=== PATIENT | male | born 1940 | race Caucasian/White ===

== ENCOUNTER 2016-12-27 13:14 | Inpatient (IN) ==
[2016-12-27] MEDS ORDERED: 0.9 % Sodium Chloride 1,000 ML IVC ONE (13:27)
--- NOTE | 2016-12-27 13:33 | Emergency Department Note ---
Disposition Clinical Impression: Generalized weakness, Unable to ambulate, Hyperglycemia Disposition: Admitted As Inpatient Condition: Fair Prescriptions: Amoxicillin 500 mg PO TID #30 tablet Referrals: NO,PCP [Non-Partnered Physician] - Forms: ED Satisfaction Letter Time of Disposition: 16:46 Altered Mental Status HPI - General Chief Complaint: ED Altered Mental Status Stated Complaint: fall/ams Time Seen by Provider: 12/27/16 13:27 Source: EMS Mode of arrival: ambulatory Limitations: no limitations Nursing Notes Reviewed: Yes Vital Signs Reviewed: Yes - History of Present Illness HPI Narrative: Patient to the emergency department with a chief complaint of altered mental status. Family called EMS because they are having a hard time getting him out of his chair. Questionable female he fell yesterday. Patient states he just does not feel well. States he has a sore throat and coughing. Cough nonproductive. Patient was hypoxic per EMS in the upper 80s. - Related Data Previous Rx's Medication Instructions Recorded Amoxicillin 500 mg PO TID #30 tablet 12/27/16 Allergies Allergy/AdvReac Type Severity Reaction Status Date / Time tetanus and diphtheria AdvReac Hives Verified 10/05/15 22:32 toxoids [Tetanus&Diphtheria Toxoid] All systems ED: reviewed and negative except as stated. Constitutional: Reports: chills. Denies: fever Cardiovascular: Denies: chest pain Respiratory: Reports: cough, dyspnea. Denies: wheezes Gastrointestinal: Denies: abdominal pain, vomiting, diarrhea Past Medical History - Past Medical History Attestation: Yes The following information was validated with the patient. Source: patient Medical history: Reports: cancer, COPD, coronary artery disease, CVA, diabetes, hyperlipidemia, hypertension, peripheral artery disease Surgical history: Reports: no surgical history Psychiatric history: Reports: no psych history - Social History Smoking Status: Former smoker Smokeless Tobacco Status: No Alcohol use: Reports: none Drug use: Reports: none Physical Exam Patient awake and alert. Oriented only to place and self. Smells of urine. - General Limitations: no limitations General appearance: alert, in no apparent distress - Head Head exam: atraumatic, normocephalic - Eye Eye exam: Present: normal appearance, PERRL, EOMI - ENT ENT exam: normal exam, normal oropharynx - Neck Neck exam: Present: normal inspection - Chest Chest inspection: Present: normal inspection - Respiratory Respiratory exam: Present: normal lung sounds bilaterally - Cardiovascular Cardiovascular exam: Present: normal rhythm, tachycardia - Abdominal Exam Abdominal exam: Present: soft, Non-Tender. Absent: tenderness, distention, guarding, rebound - Neurological Exam Neurological exam: Present: alert - Psychiatric Psychiatric exam: Present: normal affect, normal mood - Skin Skin exam: Present: warm, dry, intact Course Course Narrative: Patient is in no distress other than some mild tachycardia. Awaiting family to assess his baseline mental status. - Reevaluation(s) Reevaluation #1: Patient is unable to ambulate. He cannot take his legs up with one person on each side of him. He is unsafe for discharge home. Patient will be admitted to the hospitalist. Time: 16:01 Vital Signs Temperature 98.8 F 12/27/16 13:15 Pulse Rate 106 12/27/16 13:15 Respiratory Rate 18 12/27/16 13:15 Blood Pressure 147/99 12/27/16 13:15 O2 Sat by Pulse Oximetry 95 12/27/16 13:15 Temperature 98.8 F 12/27/16 13:15 Pulse Rate 102 12/27/16 15:40 Respiratory Rate 18 12/27/16 15:40 Blood Pressure 126/88 12/27/16 15:40 O2 Sat by Pulse Oximetry 97 12/27/16 15:40 Oxygen Delivery Oxygen Delivery Room Air Altered Mental Status - MDM Narrative Medical decision making narrative: Patient is unable to ambulate. He cannot put 1 foot in front of the other with full assistance. He is admitted. - Lab Data Result diagrams: 12/27/16 13:34 12/27/16 13:34 Lab Results 12/27/16 12/27/16 12/27/16 Range/Units 13:18 13:34 13:34 WBC 6.4 (4.3-11.1) K/mcL RBC 5.75 H (4.19-5.50) M/mcL Hgb 16.4 (12.9-16.9) g/dL Hct 49.8 (37.5-50.1) % MCV 86.6 (83.0-100.0) fL MCH 28.5 (28.0-33.3) pg MCHC 32.9 (31.6-35.5) g/dL RDW 13.3 (11.5-14.5) % Plt Count 240 (140-400) K/mcL MPV 10.6 (9.4-12.4) fL Immature Gran % 0.3 (0-4) % Seg Neutrophils % 68.1 % Lymphocytes % 16.6 % Monocytes % 13.8 % Eosinophils % 0.3 % Basophils % 0.9 % Neutrophils # 4.3 (1.6-8.9) K/mcL Lymphocytes # 1.1 (0.6-4.6) K/mcL Monocytes # 0.9 (0.0-1.3) K/mcL Eosinophils # 0.0 (0.0-0.6) K/mcL Basophils # 0.1 (0.0-0.2) K/mcL PT 11.6 (9.4-12.1) Seconds INR 1.1 APTT 30.3 (26.0-36.0) Seconds Sodium (136-145) mEq/L Potassium (3.5-4.5) mEq/L Chloride (98-109) mEq/L Carbon Dioxide (19-29) mEq/L BUN (8-26) mg/dL Creatinine (0.72-1.25) mg/dL Est GFR ( Amer) (> 60) Est GFR (Non-Af Amer) (> 60) BUN/Creatinine Ratio (6-26) Glucose (70-99) mg/dL POC Glucose 272 H (58-89) Calculated Osmolality (280-300) Calcium (8.6-10.8) mg/dL Total Bilirubin (0.2-1.2) mg/dL Direct Bilirubin (0.0-0.5) mg/dL Indirect Bilirubin (0.0-1.2) mg/dL AST (5-34) Units/L ALT (0-55) Units/L Alkaline Phosphatase (38-126) Units/L Creatine Kinase (30-200) Units/L Troponin I (0-0.03) ng/mL Serum Total Protein (6.0-8.3) g/dL Albumin (3.5-5.0) g/dL Globulin (2.4-3.5) g/dL Albumin/Globulin Ratio (1.1-2.2) Urine Color (Yellow) Urine Clarity (Clear) Urine pH (5.0-8.0) pH Units Ur Specific [place] (1.010-1.025) Urine Protein (Neg-Trace) mg/dL Urine Glucose (UA) (Normal) mg/dL Urine Ketones (Negative) mg/dL Urine Blood (Negative) Urine Nitrite (Negative) Urine Bilirubin (Negative) Urine Urobilinogen (Normal) mg/dL Ur Leukocyte Esterase (Negative) Urine Microscopic RBC (0-3) per hpf Urine Microscopic WBC (0-3) per hpf Ur Squamous Epith Cells (None-Few) per lpf Urine Bacteria (None-Few) per hpf Hyaline Casts (None-Few) per lpf Ur Culture Indicated? (NO) Urine Opiates Screen (Sjbmek=770) ng/mL Ur Barbiturates Screen (Ilzabt=011) ng/mL Ur Phencyclidine Scrn (Cutoff=25) ng/mL Ur Amphetamines Screen (Cxlvhx=1865) ng/mL U Benzodiazepines Scrn (Ywgtzo=837) ng/mL Urine Cocaine Screen (Cutoff= 300) ng/mL U Marijuana (THC) Screen (Cutoff = 50) ng/mL Ethyl Alcohol (0-10) mg/dL 12/27/16 12/27/16 12/27/16 Range/Units 13:34 13:34 13:38 WBC (4.3-11.1) K/mcL RBC (4.19-5.50) M/mcL Hgb (12.9-16.9) g/dL Hct (37.5-50.1) % MCV (83.0-100.0) fL MCH (28.0-33.3) pg MCHC (31.6-35.5) g/dL RDW (11.5-14.5) % Plt Count (140-400) K/mcL MPV (9.4-12.4) fL Immature Gran % (0-4) % Seg Neutrophils % % Lymphocytes % % Monocytes % % Eosinophils % % Basophils % % Neutrophils # (1.6-8.9) K/mcL Lymphocytes # (0.6-4.6) K/mcL Monocytes # (0.0-1.3) K/mcL Eosinophils # (0.0-0.6) K/mcL Basophils # (0.0-0.2) K/mcL PT (9.4-12.1) Seconds INR APTT (26.0-36.0) Seconds Sodium 138 (136-145) mEq/L Potassium 4.0 (3.5-4.5) mEq/L Chloride 101 (98-109) mEq/L Carbon Dioxide 24 (19-29) mEq/L BUN 19 (8-26) mg/dL Creatinine 1.06 (0.72-1.25) mg/dL Est GFR ( Amer) > 60 (> 60) Est GFR (Non-Af Amer) > 60 (> 60) BUN/Creatinine Ratio 18 (6-26) Glucose 332 H (70-99) mg/dL POC Glucose (58-89) Calculated Osmolality 301 H (280-300) Calcium 9.9 (8.6-10.8) mg/dL Total Bilirubin 0.6 (0.2-1.2) mg/dL Direct Bilirubin 0.2 (0.0-0.5) mg/dL Indirect Bilirubin 0.4 (0.0-1.2) mg/dL AST 21 (5-34) Units/L ALT 31 (0-55) Units/L Alkaline Phosphatase 82 (38-126) Units/L Creatine Kinase 52 (30-200) Units/L Troponin I 0.01 (0-0.03) ng/mL Serum Total Protein 8.5 H (6.0-8.3) g/dL Albumin 3.9 (3.5-5.0) g/dL Globulin 4.6 H (2.4-3.5) g/dL Albumin/Globulin Ratio 0.8 L (1.1-2.2) Urine Color Yellow (Yellow) Urine Clarity Clear (Clear) Urine pH 5.5 (5.0-8.0) pH Units Ur Specific [place] > 1.030 H (1.010-1.025) Urine Protein 30 H (Neg-Trace) mg/dL Urine Glucose (UA) >=1000 H (Normal) mg/dL Urine Ketones Negative (Negative) mg/dL Urine Blood Negative (Negative) Urine Nitrite Negative (Negative) Urine Bilirubin Negative (Negative) Urine Urobilinogen Normal (Normal) mg/dL Ur Leukocyte Esterase Negative (Negative) Urine Microscopic RBC 0-3 (0-3) per hpf Urine Microscopic WBC 0-3 (0-3) per hpf Ur Squamous Epith Cells Moderate H (None-Few) per lpf Urine Bacteria None Seen (None-Few) per hpf Hyaline Casts None Seen (None-Few) per lpf Ur Culture Indicated? NO (NO) Urine Opiates Screen (Fueftp=671) ng/mL Ur Barbiturates Screen (Mfgotj=776) ng/mL Ur Phencyclidine Scrn (Cutoff=25) ng/mL Ur Amphetamines Screen (Pmljfw=3733) ng/mL U Benzodiazepines Scrn (Trxlby=596) ng/mL Urine Cocaine Screen (Cutoff= 300) ng/mL U Marijuana (THC) Screen (Cutoff = 50) ng/mL Ethyl Alcohol < 10 (0-10) mg/dL 12/27/16 Range/Units 13:38 WBC (4.3-11.1) K/mcL RBC (4.19-5.50) M/mcL Hgb (12.9-16.9) g/dL Hct (37.5-50.1) % MCV (83.0-100.0) fL MCH (28.0-33.3) pg MCHC (31.6-35.5) g/dL RDW (11.5-14.5) % Plt Count (140-400) K/mcL MPV (9.4-12.4) fL Immature Gran % (0-4) % Seg Neutrophils % % Lymphocytes % % Monocytes % % Eosinophils % % Basophils % % Neutrophils # (1.6-8.9) K/mcL Lymphocytes # (0.6-4.6) K/mcL Monocytes # (0.0-1.3) K/mcL Eosinophils # (0.0-0.6) K/mcL Basophils # (0.0-0.2) K/mcL PT (9.4-12.1) Seconds INR APTT (26.0-36.0) Seconds Sodium (136-145) mEq/L Potassium (3.5-4.5) mEq/L Chloride (98-109) mEq/L Carbon Dioxide (19-29) mEq/L BUN (8-26) mg/dL Creatinine (0.72-1.25) mg/dL Est GFR ( Amer) (> 60) Est GFR (Non-Af Amer) (> 60) BUN/Creatinine Ratio (6-26) Glucose (70-99) mg/dL POC Glucose (58-89) Calculated Osmolality (280-300) Calcium (8.6-10.8) mg/dL Total Bilirubin (0.2-1.2) mg/dL Direct Bilirubin (0.0-0.5) mg/dL Indirect Bilirubin (0.0-1.2) mg/dL AST (5-34) Units/L ALT (0-55) Units/L Alkaline Phosphatase (38-126) Units/L Creatine Kinase (30-200) Units/L Troponin I (0-0.03) ng/mL Serum Total Protein (6.0-8.3) g/dL Albumin (3.5-5.0) g/dL Globulin (2.4-3.5) g/dL Albumin/Globulin Ratio (1.1-2.2) Urine Color (Yellow) Urine Clarity (Clear) Urine pH (5.0-8.0) pH Units Ur Specific [place] (1.010-1.025) Urine Protein (Neg-Trace) mg/dL Urine Glucose (UA) (Normal) mg/dL Urine Ketones (Negative) mg/dL Urine Blood (Negative) Urine Nitrite (Negative) Urine Bilirubin (Negative) Urine Urobilinogen (Normal) mg/dL Ur Leukocyte Esterase (Negative) Urine Microscopic RBC (0-3) per hpf Urine Microscopic WBC (0-3) per hpf Ur Squamous Epith Cells (None-Few) per lpf Urine Bacteria (None-Few) per hpf Hyaline Casts (None-Few) per lpf Ur Culture Indicated? (NO) Urine Opiates Screen Negative (Udblnb=493) ng/mL Ur Barbiturates Screen Negative (Gsuxnh=811) ng/mL Ur Phencyclidine Scrn Negative (Cutoff=25) ng/mL Ur Amphetamines Screen Negative (Gsedxm=3392) ng/mL U Benzodiazepines Scrn Negative (Gwflpn=927) ng/mL Urine Cocaine Screen Negative (Cutoff= 300) ng/mL U Marijuana (THC) Screen Negative (Cutoff = 50) ng/mL Ethyl Alcohol (0-10) mg/dL - Radiology Data Radiology results reviewed: Yes I reviewed the patient's radiology results. Chest X-Ray 12/27/16 13:27 IMPRESSION: No acute cardiopulmonary disease D/ / Adolph Hernandez MD / Adolph Hernandez MD Interpreting Provider: Adolph Hernandez MD Head CT 12/27/16 13:28 IMPRESSION: No acute intracranial abnormality. Mild atrophy with mild periventricular and scattered frontal parietal white matter disease, likely due to small-vessel ischemic change. D/ / Adolph Serna MD / Adolph Serna MD Interpreting Provider: Adolph Serna MD - EKG Data EKG results narrative: Sinus tach at 109. Nonspecific ST changes. Normal QRS. Normal axis. Occasional PVC Unchanged from August 2016. EKG shows normal: sinus rhythm Rate: tachycardia TPA Checklist - LKW: 3-4.5 hrs Add. Contraindications Patient/family understanding: The patient/family members have been counseled and understood the risk, benefit , and alternatives of treatment. Critical Care Time Critical Care Time: No
[2016-12-27 13:42] LABS: Basophils # 0.1 K/mcL (0.0-0.2); Basophils % 0.9 %; Eosinophils % 0.3 %; Hematocrit 49.8 % (37.5-50.1); Hemoglobin 16.4 g/dL (12.9-16.9); Immature Granulocytes % 0.3 % (0-4); Lymphocytes # 1.1 K/mcL (0.6-4.6); Lymphocytes % 16.6 %; Mean Corpuscular HGB Conc 32.9 g/dL (31.6-35.5); Mean Corpuscular Hemoglobin 28.5 pg (28.0-33.3); Mean Corpuscular Volume 86.6 fL (83.0-100.0); Mean Platelet Volume 10.6 fL (9.4-12.4); Monocytes # 0.9 K/mcL (0.0-1.3); Monocytes % 13.8 %; Neutrophils # 4.3 K/mcL (1.6-8.9); Platelet Count 240 K/mcL (140-400); Red Blood Count 5.75 M/mcL (4.19-5.50); Red Cell Distribution Width 13.3 % (11.5-14.5); Segmented Neutrophils % 68.1 %
[2016-12-27 13:50] LABS: Bilirubin,Urine Negative (Negative); Blood,Urine Negative (Negative); Clarity,Urine Clear (Clear); Color,Urine Yellow (Yellow); Glucose,Urine (UA) >=1000 mg/dL (Normal); Ketones,Urine Negative (Negative); Leukocyte Esterase,Urine Negative (Negative); Nitrite,Urine Negative (Negative); PH,Urine 5.5 pH Units (5.0-8.0); Protein,Urine 30 mg/dL (Neg-Trace); Specific Gravity,Urine > 1.030 (1.010-1.025); Urobilinogen,Urine Normal (Normal)
[2016-12-27 13:52] LABS: Bacteria,Urine None Seen per hpf (None-Few); Hyaline Casts,Urine None Seen per lpf (None-Few); RBC,Urine 0-3 per hpf (0-3); Squamous Epithelial Cell,Urine Moderate per lpf (None-Few); WBC,Urine 0-3 per hpf (0-3)
[2016-12-27 13:53] LABS: Amphetamine Screen,Urine Negative ng/mL (Cutoff=1000); Barbiturate Screen,Urine Negative ng/mL (Cutoff=200); Benzodiazepines Screen,Urine Negative ng/mL (Cutoff=200); Cannabinoid Screen,Urine Negative ng/mL (Cutoff = 50); Cocaine Screen,Urine Negative ng/mL (Cutoff= 300); Opiate Screen,Urine Negative ng/mL (Cutoff=300); Phencyclidine Screen,Urine Negative ng/mL (Cutoff=25)
[2016-12-27 13:53] LABS: INR 1.1; Prothrombin Time 11.6 Seconds (9.4-12.1)
[2016-12-27 13:55] LABS: Activated Partial Thrombo Time 30.3 Seconds (26.0-36.0)
[2016-12-27 13:56] LABS: Alanine Aminotransferase 31 Units/L (0-55); Albumin 3.9 g/dL (3.5-5.0); Albumin/Globulin Ratio 0.8 (1.1-2.2); Alkaline Phosphatase 82 Units/L (38-126); Aspartate Amino Transferase 21 Units/L (5-34); BUN/Creatinine Ratio 18 (6-26); Bilirubin,Direct 0.2 mg/dL (0.0-0.5); Bilirubin,Indirect 0.4 mg/dL (0.0-1.2); Bilirubin,Total 0.6 mg/dL (0.2-1.2); Blood Urea Nitrogen 19 mg/dL (8-26); Calcium 9.9 mg/dL (8.6-10.8); Carbon Dioxide 24 mEq/L (19-29); Chloride 101 mEq/L (98-109); Creatine Kinase 52 Units/L (30-200); Globulin 4.6 g/dL (2.4-3.5); Glucose 332 mg/dL (70-99); Osmolality,Calculated 301 (280-300); Sodium 138 mEq/L (136-145); Total Protein 8.5 g/dL (6.0-8.3); eGFR For African Americans > 60 (> 60); eGFR For Non-African Americans > 60 (> 60)
[2016-12-27 13:59] LABS: Ethanol < 10 mg/dL (0-10)
[2016-12-27] MEDS ORDERED: Insulin Human Regular 10 UNIT in 0.9 % Sodium Chloride 10 ML IV ONE (16:00)
--- NOTE | 2016-12-27 18:19 | Electrocardiograph Report ---
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
--- NOTE | 2016-12-27 20:28 | Internal Med History&Physical ---
<Deja Sloan - Last Filed: 12/27/16 22:17> Date of Encounter: 12/27/16 Time of Encounter: 20:26 Assessment and Plan (1) Generalized weakness Current visit: Yes Status: Acute consult to PT/OT - patient was unable to ambulate in ED with max assist (2) Cough Current visit: Yes Status: Acute most likely URI, may be COPD exacerbation (3) COPD (chronic obstructive pulmonary disease) Current visit: Yes Status: Acute with hypoxia AM VBG ordered continue home medications Qualifiers: COPD type: unspecified COPD Qualified Code(s): J44.9 - Chronic obstructive pulmonary disease, unspecified (4) Diabetes Current visit: Yes Status: Acute hyperglycemia in ED 10 units Levemir (home med 10 U lantus) low dose sliding scale accuchecks q6h Qualifiers: Diabetes mellitus type: type 2 Diabetes mellitus complication status: with hyperglycemia Diabetes mellitus terminal operations manager insulin use: with terminal operations manager use Qualified Code(s): E11.65 - Type 2 diabetes mellitus with hyperglycemia (5) CAD (coronary artery disease) Current visit: Yes Status: Acute continue home ASA, statin, LUCIANA Qualifiers: Coronary Disease-Associated Artery/Lesion type: chilkat artery [place] vs. transplanted heart: chilkat heart Associated angina: angina presence unspecified Qualified Code(s): I25.10 - Atherosclerotic heart disease of chilkat coronary artery without angina pectoris Internal Medicine - H&P: HPI Chief complaint: cough Admitted From: Emergency Dept Plans for Post Hospital Care: Home History of present illness: Mr. Espinoza is a 76 year old male who states he came to the ER for a cough and sore throat x 1 day. He states that his 4 yr old grandson is sick with croup. On my questioning, he denies falling. No family is present at the time of my questioning. ED notes state EMS was called due to difficulty removing him from his chair and a possible fall yesterday. He was admitted from the ED for inability to ambulate with max assist. Past Med Surg Social Fam HX - Past Medical History Source: old records reviewed Medical history: cancer (prostate), COPD, coronary artery disease, CVA, dementia , diabetes (with neuropathy), GERD, hyperlipidemia, hypertension, peripheral artery disease, other (diverticulosis, hypoxemia) Psychiatric history: depression - Past Surgical History Surgical History: cancer surgery (bracytherapy for prostate cancer), cataract, other (tonsillectomy) - Social History Smoking Status: Former smoker Smokeless Tobacco Status: No Alcohol use: none Drug use: none - Family History Mother Living Status: Internal Medicine - H&P: Meds Albuterol Sulfate [Proair Respiclick] 90 mcg IH Q4HR PRN 12/27/16 [History] Amoxicillin 500 mg PO TID #30 tablet 12/27/16 [Rx] Aspirin [Lo-Dose Aspirin EC] 81 mg PO DAILY 12/27/16 [History] Fluticasone Propionate [Flovent Hfa] 10.6 gm IH TID 12/27/16 [History] Glimepiride [Amaryl] 4 mg PO QAM 12/27/16 [History] Insulin Glargine,Hum.rec.anlog [Lantus Solostar] 10 unit SQ DAILY 12/27/16 [ History] Lisinopril 2.5 mg PO DAILY 12/27/16 [History] Metformin HCl [Fortamet] 500 mg PO DAILY 12/27/16 [History] Sildenafil Citrate [Viagra] 100 mg PO DAILY PRN 12/27/16 [History] Simvastatin [Zocor] 20 mg PO HS 12/27/16 [History] Tiotropium [Spiriva] 18 mcg IH DAILY 12/27/16 [History] Allergies tetanus and diphtheria toxoids [Tetanus&Diphtheria Toxoid] Adverse Reaction ( Verified 10/05/15 22:32) Hives All Systems PM: A 10-system review of systems was performed and is negative for pertinent findings except as documented above in the HPI. - Constitutional Constitutional: no chills, no fever(s), no night sweats - EENT Eyes: no change in vision, no discharge, no pain, no photophobia Ears: no ear discharge, no ear pain, no tinnitus Nose, mouth and throat: sore throat, no dysphagia, no nasal discharge, no neck pain - Cardiovascular Cardiovascular ROS IM: no chest pain, no diaphoresis, no dyspnea, no lightheadedness, no palpitations, no syncope - Respiratory Respiratory: cough, no dyspnea, no wheezing, no excessive phlegm production - Gastrointestinal Gastrointestinal: no abdominal pain, no diarrhea, no hematemesis, no hematochezia, no melena, no nausea, no vomiting - Musculoskeletal Musculoskeletal ROS IM: no numbness, no tingling - Integumentary Integumentary IM: no rash, no unusual bruising - Neurological Neurological ROS: no confusion, no convulsions, no focal weakness, no numbness, no tingling, no tremor(s) - Hematologic/Lymphatic Hematologic/Lymphatic: no easy bruising - Constitutional Vitals: Temp Pulse Resp BP Pulse Ox 99.0 F 90 18 138/65 93 L 12/27/16 19:29 12/27/16 19:29 12/27/16 19:29 12/27/16 19:29 12/27/16 19:29 General appearance: Present: cooperative, no acute distress - Head Head exam: Present: atraumatic, normocephalic - Eye Eye exam: Present: PERRL, conjuntiva pink, sclera anicteric Pupils: Present: PERRL - Neck Neck exam general surgery: Present: supple, trachea midline. Absent: lymphadenopathy - Respiratory Respiratory exam: Present: CTAB (diminished breath sounds bilaterally). Absent : accessory muscle use, rales, rhonchi, wheezes - Cardiovascular Cardiovascular exam: Present: RRR, +S1, +S2. Absent: diastolic murmur, gallop, rubs, systolic murmur - GI/Abdominal GI/Abdominal exam: Present: normal bowel sounds, soft, no peritoneal signs. Absent: distended, tenderness - Extremities Exam Extremities exam: Present: warm. Absent: calf tenderness, cyanotic, pedal edema - Neurological Exam Neurological exam: Present: CN II-XII intact, oriented X3, no focal deficits. Absent: pronater drift, facial droop, speech deficit - Skin Skin exam: Present: dry, intact Internal Med - H&P Results - Labs CBC & Chem 7: 12/27/16 13:34 12/27/16 13:34 <Grayson Bhat - Last Filed: 01/01/17 02:27> Date of Encounter: 12/27/16 Assessment and Plan (1) Mental status alteration Current visit: Yes Status: Acute . Qualifiers: Altered mental status type: transient alteration of awareness Qualified Code(s): R40.4 - Transient alteration of awareness (2) Delirium due to conditions classified elsewhere Current visit: Yes Status: Acute . (3) Dehydration Current visit: Yes Status: Acute . (4) Acute metabolic encephalopathy Current visit: Yes Status: Acute (5) Generalized weakness Current visit: Yes Status: Acute (6) Physical deconditioning Current visit: Yes Status: Acute . (7) COPD (chronic obstructive pulmonary disease) Current visit: Yes Status: Chronic Qualifiers: COPD type: unspecified COPD Qualified Code(s): J44.9 - Chronic obstructive pulmonary disease, unspecified (8) Dementia Current visit: Yes Status: Chronic . Qualifiers: Dementia type: Alzheimer's disease Alzheimer's disease onset: late-onset Dementia behavioral disturbance: without behavioral disturbance Qualified Code (s): G30.1 - Alzheimer's disease with late onset; F02.80 - Dementia in other diseases classified elsewhere without behavioral disturbance (9) Diabetes Current visit: Yes Status: Chronic Qualifiers: Diabetes mellitus type: type 2 Diabetes mellitus complication status: with hyperglycemia Diabetes mellitus penitentiary insulin use: without penitentiary use Qualified Code(s): E11.65 - Type 2 diabetes mellitus with hyperglycemia (10) Essential hypertension Current visit: Yes Status: Chronic . (11) Multiple falls Current visit: Yes Status: Chronic . (12) At risk for accident in home Current visit: Yes Status: Acute . (13) At risk for acid-base imbalance Current visit: Yes Status: Acute . (14) At risk for activity intolerance Current visit: Yes Status: Acute . (15) At risk for acute confusion Current visit: Yes Status: Acute . (16) Age-related physical debility Current visit: Yes Status: Chronic . (17) CAD (coronary artery disease) Current visit: Yes Status: Acute Qualifiers: Coronary Disease-Associated Artery/Lesion type: [place] artery [place] vs. transplanted heart: chilkat heart Associated angina: angina presence unspecified Qualified Code(s): I25.10 - Atherosclerotic heart disease of [place] coronary artery without angina pectoris (18) Noncompliance with medication regimen Current visit: Yes Status: Chronic Internal Medicine - H&P: HPI History of present illness: Mr. Espinoza is a 76 year old male admitted to a [facility] via the emergency department when he presented by EMS services from home with reports by family of acute alteration of mental status complicated by generalized weakness and inability to ambulate and complete expected activities of daily living independently. (The patient reported that his primary chief complaint was that he just did not feel well and had a sore throat and a cough.) The patient was visited and interviewed and examined. He was found to be acutely encephalopathic and a non-historian of circumstances and events. Details are thus collected from medical records, family and EMS staff reports and ED staff query. For this encounter, I have reviewed the documentation, treatment plan, and medical decision making. I examined this patient and my medical decision-making was reviewed with the Resident Physician. I agree with the documented findings, disposition and treatment plan as described except to the extent set forth below. Cumulative laboratory and radiographic database was reviewed, considered and discussed. Given the patient's presenting concerns, past medical history, clinical findings and symptoms, he is admitted at this time to undergo further evaluation and disposition. Orders written Past Med Surg Social Fam HX - Past Medical History Source: old records reviewed Medical history: arthritis, cancer, COPD, coronary artery disease, CVA, dementia , diabetes, GERD, hyperlipidemia, hypertension, osteoporosis, peripheral artery disease, other Psychiatric history: anxiety, other - Social History Occupational status: retired Current living situation: With Family Activity Level: Mostly sedentary Recent Out of Country Travel Within the Last 8 Weeks: No Exposure or Possible Exposure to Illness During Travel: No All Systems PM: A 10-system review of systems was performed and is negative for pertinent findings except as documented above in the HPI. - Constitutional Vitals: Temp Pulse Resp BP Pulse Ox 98.5 F 91 18 135/77 96 01/01/17 00:52 01/01/17 00:52 01/01/17 00:52 01/01/17 00:52 01/01/17 00:52 Internal Med - H&P Results - Labs CBC & Chem 7: 12/28/16 03:59 12/31/16 19:54 Labs: BMP 12/31/16 19:54 Sodium 137 Potassium 3.6 Chloride 104 Carbon Dioxide 25 BUN 11 Creatinine 0.84 Glucose 254 H Calcium 8.5 L Abnormal Labs 12/27/16 12/27/16 12/27/16 13:18 13:34 13:34 RBC 5.75 H Reactive Lymphocytes Large Platelets ESR VBG pCO2 VBG HCO3 Potassium Glucose 332 H POC Glucose 272 H Hemoglobin A1c Calculated Osmolality 301 H Calcium C-Reactive Protein Serum Total Protein 8.5 H Albumin Globulin 4.6 H Albumin/Globulin Ratio 0.8 L Ur Specific [place] Urine Protein Urine Glucose (UA) Ur Squamous Epith Cells 12/27/16 12/28/16 12/28/16 13:38 00:12 03:59 RBC Reactive Lymphocytes Present A Large Platelets Present A ESR VBG pCO2 VBG HCO3 Potassium Glucose POC Glucose 288 H Hemoglobin A1c Calculated Osmolality Calcium C-Reactive Protein Serum Total Protein Albumin Globulin Albumin/Globulin Ratio Ur Specific [place] > 1.030 H Urine Protein 30 H Urine Glucose (UA) >=1000 H Ur Squamous Epith Cells Moderate H 12/28/16 12/28/16 12/28/16 03:59 03:59 03:59 RBC Reactive Lymphocytes Large Platelets ESR 61 H VBG pCO2 55 H VBG HCO3 30.4 H Potassium 3.4 L Glucose 135 H POC Glucose Hemoglobin A1c Calculated Osmolality Calcium C-Reactive Protein Serum Total Protein Albumin 3.2 L Globulin 4.0 H Albumin/Globulin Ratio 0.8 L Ur Specific [place] Urine Protein Urine Glucose (UA) Ur Squamous Epith Cells 12/28/16 12/28/16 12/28/16 03:59 03:59 05:54 RBC Reactive Lymphocytes Large Platelets ESR VBG pCO2 VBG HCO3 Potassium Glucose POC Glucose 134 H Hemoglobin A1c 11.9 H Calculated Osmolality Calcium C-Reactive Protein 53 H Serum Total Protein Albumin Globulin Albumin/Globulin Ratio Ur Specific [place] Urine Protein Urine Glucose (UA) Ur Squamous Epith Cells 12/28/16 12/28/16 12/28/16 11:11 16:59 23:46 RBC Reactive Lymphocytes Large Platelets ESR VBG pCO2 VBG HCO3 Potassium Glucose POC Glucose 304 H 337 H 233 H Hemoglobin A1c Calculated Osmolality Calcium C-Reactive Protein Serum Total Protein Albumin Globulin Albumin/Globulin Ratio Ur Specific [place] Urine Protein Urine Glucose (UA) Ur Squamous Epith Cells 12/29/16 12/29/16 12/30/16 05:52 11:04 01:01 RBC Reactive Lymphocytes Large Platelets ESR VBG pCO2 VBG HCO3 Potassium Glucose POC Glucose 163 H 250 H 122 H Hemoglobin A1c Calculated Osmolality Calcium C-Reactive Protein Serum Total Protein Albumin Globulin Albumin/Globulin Ratio Ur Specific [place] Urine Protein Urine Glucose (UA) Ur Squamous Epith Cells 12/30/16 12/30/16 12/30/16 05:37 16:23 20:09 RBC Reactive Lymphocytes Large Platelets ESR VBG pCO2 VBG HCO3 Potassium Glucose POC Glucose 144 H 254 H 186 H Hemoglobin A1c Calculated Osmolality Calcium C-Reactive Protein Serum Total Protein Albumin Globulin Albumin/Globulin Ratio Ur Specific [place] Urine Protein Urine Glucose (UA) Ur Squamous Epith Cells 12/31/16 12/31/16 12/31/16 07:26 11:57 16:10 RBC Reactive Lymphocytes Large Platelets ESR VBG pCO2 VBG HCO3 Potassium Glucose POC Glucose 154 H 148 H 156 H Hemoglobin A1c Calculated Osmolality Calcium C-Reactive Protein Serum Total Protein Albumin Globulin Albumin/Globulin Ratio Ur Specific [place] Urine Protein Urine Glucose (UA) Ur Squamous Epith Cells 12/31/16 12/31/16 19:54 20:13 RBC Reactive Lymphocytes Large Platelets ESR VBG pCO2 VBG HCO3 Potassium Glucose 254 H POC Glucose 265 H Hemoglobin A1c Calculated Osmolality Calcium 8.5 L C-Reactive Protein Serum Total Protein Albumin Globulin Albumin/Globulin Ratio Ur Specific [place] Urine Protein Urine Glucose (UA) Ur Squamous Epith Cells - ABG Interpretation ABG results: 12/28/16 03:59 VBG pH 7.35 VBG pCO2 55 H VBG pO2 28 VBG HCO3 30.4 H - Impressions Abnormal lab results Reactive Lymphocytes Present (Not Present) A 12/28/16 03:59 Large Platelets Present (Not Present) A 12/28/16 03:59 ESR 61 mm/hr (0-10) H 12/28/16 03:59 VBG pCO2 55 mmHg (41-51) H 12/28/16 03:59 VBG HCO3 30.4 mEq/L (21-27) H 12/28/16 03:59 Glucose 254 mg/dL (70-99) H 12/31/16 19:54 POC Glucose 265 (58-89) H 12/31/16 20:13 Hemoglobin A1c 11.9 % (-5.6) H 12/28/16 03:59 Calcium 8.5 mg/dL (8.6-10.8) L 12/31/16 19:54 C-Reactive Protein 53 mg/L (Less than 5) H 12/28/16 03:59 Albumin 3.2 g/dL (3.5-5.0) L 12/28/16 03:59 Globulin 4.0 g/dL (2.4-3.5) H 12/28/16 03:59 Albumin/Globulin Ratio 0.8 (1.1-2.2) L 12/28/16 03:59 Ur Specific [place] > 1.030 (1.010-1.025) H 12/27/16 13:38 Urine Protein 30 mg/dL (Neg-Trace) H 12/27/16 13:38 Urine Glucose (UA) >=1000 mg/dL (Normal) H 12/27/16 13:38 Ur Squamous Epith Cells Moderate per lpf (None-Few) H 12/27/16 13:38 Laboratory Results WBC 4.6 K/mcL (4.3-11.1) 12/28/16 03:59 RBC 5.13 M/mcL (4.19-5.50) 12/28/16 03:59 Hgb 14.4 g/dL (12.9-16.9) D 12/28/16 03:59 Hct 44.7 % (37.5-50.1) 12/28/16 03:59 MCV 87.1 fL (83.0-100.0) 12/28/16 03:59 MCH 28.1 pg (28.0-33.3) 12/28/16 03:59 MCHC 32.2 g/dL (31.6-35.5) 12/28/16 03:59 RDW 13.3 % (11.5-14.5) 12/28/16 03:59 Plt Count 212 K/mcL (140-400) 12/28/16 03:59 MPV 10.6 fL (9.4-12.4) 12/28/16 03:59 Immature Gran % 0.4 % (0-4) 12/28/16 03:59 Seg Neutrophils % 55.7 % 12/28/16 03:59 Lymphocytes % 20.1 % 12/28/16 03:59 Monocytes % 19.0 % 12/28/16 03:59 Eosinophils % 3.7 % 12/28/16 03:59 Basophils % 1.1 % 12/28/16 03:59 Neutrophils # 2.6 K/mcL (1.6-8.9) 12/28/16 03:59 Lymphocytes # 0.9 K/mcL (0.6-4.6) 12/28/16 03:59 Monocytes # 0.9 K/mcL (0.0-1.3) 12/28/16 03:59 Eosinophils # 0.2 K/mcL (0.0-0.6) 12/28/16 03:59 Basophils # 0.1 K/mcL (0.0-0.2) 12/28/16 03:59 Reactive Lymphocytes Present (Not Present) A 12/28/16 03:59 Platelet Estimate Normal (Normal) 12/28/16 03:59 Large Platelets Present (Not Present) A 12/28/16 03:59 ESR 61 mm/hr (0-10) H 12/28/16 03:59 PT 11.6 Seconds (9.4-12.1) 12/27/16 13:34 INR 1.1 12/27/16 13:34 APTT 30.3 Seconds (26.0-36.0) 12/27/16 13:34 VBG pH 7.35 pH Units (7.32-7.42) 12/28/16 03:59 VBG pCO2 55 mmHg (41-51) H 12/28/16 03:59 VBG pO2 28 mmHg (25-40) 12/28/16 03:59 VBG HCO3 30.4 mEq/L (21-27) H 12/28/16 03:59 Sodium 137 mEq/L (136-145) 12/31/16 19:54 Potassium 3.6 mEq/L (3.5-4.5) 12/31/16 19:54 Chloride 104 mEq/L (98-109) 12/31/16 19:54 Carbon Dioxide 25 mEq/L (19-29) 12/31/16 19:54 BUN 11 mg/dL (8-26) 12/31/16 19:54 Creatinine 0.84 mg/dL (0.72-1.25) 12/31/16 19:54 Est GFR ( Amer) > 60 (> 60) 12/31/16 19:54 Est GFR (Non-Af Amer) > 60 (> 60) 12/31/16 19:54 BUN/Creatinine Ratio 13 (6-26) 12/31/16 19:54 Glucose 254 mg/dL (70-99) H 12/31/16 19:54 POC Glucose 265 (58-89) H 12/31/16 20:13 Est Mean Plasma Glucose 295 mg/dl 12/28/16 03:59 Hemoglobin A1c 11.9 % (-5.6) H 12/28/16 03:59 Calculated Osmolality 292 (280-300) 12/31/16 19:54 Calcium 8.5 mg/dL (8.6-10.8) L 12/31/16 19:54 Phosphorus 3.4 mg/dL (2.3-4.7) 12/31/16 19:54 Total Bilirubin 0.5 mg/dL (0.2-1.2) 12/28/16 03:59 Direct Bilirubin 0.2 mg/dL (0.0-0.5) 12/27/16 13:34 Indirect Bilirubin 0.4 mg/dL (0.0-1.2) 12/27/16 13:34 AST 23 Units/L (5-34) 12/28/16 03:59 ALT 25 Units/L (0-55) 12/28/16 03:59 Alkaline Phosphatase 68 Units/L (38-126) 12/28/16 03:59 Creatine Kinase 52 Units/L (30-200) 12/27/16 13:34 Troponin I 0.01 ng/mL (0-0.03) 12/27/16 13:34 C-Reactive Protein 53 mg/L (Less than 5) H 12/28/16 03:59 Serum Total Protein 7.2 g/dL (6.0-8.3) 12/28/16 03:59 Albumin 3.2 g/dL (3.5-5.0) L 12/28/16 03:59 Globulin 4.0 g/dL (2.4-3.5) H 12/28/16 03:59 Albumin/Globulin Ratio 0.8 (1.1-2.2) L 12/28/16 03:59 Urine Color Yellow (Yellow) 12/27/16 13:38 Urine Clarity Clear (Clear) 12/27/16 13:38 Urine pH 5.5 pH Units (5.0-8.0) 12/27/16 13:38 Ur Specific [place] > 1.030 (1.010-1.025) H 12/27/16 13:38 Urine Protein 30 mg/dL (Neg-Trace) H 12/27/16 13:38 Urine Glucose (UA) >=1000 mg/dL (Normal) H 12/27/16 13:38 Urine Ketones Negative mg/dL (Negative) 12/27/16 13:38 Urine Blood Negative (Negative) 12/27/16 13:38 Urine Nitrite Negative (Negative) 12/27/16 13:38 Urine Bilirubin Negative (Negative) 12/27/16 13:38 Urine Urobilinogen Normal mg/dL (Normal) 12/27/16 13:38 Ur Leukocyte Esterase Negative (Negative) 12/27/16 13:38 Urine Microscopic RBC 0-3 per hpf (0-3) 12/27/16 13:38 Urine Microscopic WBC 0-3 per hpf (0-3) 12/27/16 13:38 Ur Squamous Epith Cells Moderate per lpf (None-Few) H 12/27/16 13:38 Urine Bacteria None Seen per hpf (None-Few) 12/27/16 13:38 Hyaline Casts None Seen per lpf (None-Few) 12/27/16 13:38 Ur Culture Indicated? NO (NO) 12/27/16 13:38 Urine Opiates Screen Negative ng/mL (Fyknyf=244) 12/27/16 13:38 Ur Barbiturates Screen Negative ng/mL (Rrxpcs=140) 12/27/16 13:38 Ur Phencyclidine Scrn Negative ng/mL (Cutoff=25) 12/27/16 13:38 Ur Amphetamines Screen Negative ng/mL (Uyrqhy=6768) 12/27/16 13:38 U Benzodiazepines Scrn Negative ng/mL (Ffjkcj=487) 12/27/16 13:38 Urine Cocaine Screen Negative ng/mL (Cutoff= 300) 12/27/16 13:38 U Marijuana (THC) Screen Negative ng/mL (Cutoff = 50) 12/27/16 13:38 Ethyl Alcohol < 10 mg/dL (0-10) 12/27/16 13:34 Impressions Chest X-Ray 12/27/16 13:27 IMPRESSION: No acute cardiopulmonary disease D/ / Adolph Hernandez MD / Adolph Hernandez MD Interpreting Provider: Adolph Hernandez MD Head CT 12/27/16 13:28 IMPRESSION: No acute intracranial abnormality. Mild atrophy with mild periventricular and scattered frontal parietal white matter disease, likely due to small-vessel ischemic change. D/ / Adolph Serna MD / Adolph Serna MD Interpreting Provider: Adolph Serna MD - Attending Attestation My signature below is to certify that this patient is under my care and that I, or the Resident Physician working with me, has had a [id number] encounter with this patient. Plan of care has been reviewed and discussed. Questions addressed. Advance care directive discussion briefly addressed. The patient does not declare any healthcare restrictions at this time. Outpatient medications schedules will be reviewed, confirmed and facilitated as appropriate. Reconciliation of home treatments including adjustments, substitutions and reintroduction into the treatment regimen will address necessary maintenance therapies for chronic pre-existing medical conditions. Smoking cessation briefly addressed. Patient is a former smoker. Hospital course will be dependent upon the clinical findings, treatment response and potential consultative interventions. The patient is at risk for further acute clinical decline and morbidity given his presenting chief complaints, frailty and comorbidities. Condition is serious. Prognosis is guarded. CODE STATUS is full.
[2016-12-27] MEDS ORDERED: Ondansetron ODT 4 MG TAB.RAPDIS SL PRN (22:02)
[2016-12-27] MEDS ORDERED: Naloxone 0.4 MG/ML INJ IVP PRN (22:02)
[2016-12-27] MEDS ORDERED: Dextrose Gel 15 GM PO PRN ×2 (22:07)
[2016-12-27] MEDS ORDERED: *HR* Dextrose 50 % in Water (Syg) 50 ML SYRINGE IVP PRN (22:07)
[2016-12-27] MEDS ORDERED: D5% in Water 1,000 ML IV PRN (22:07)
[2016-12-27] MEDS ORDERED: Insulin DETEMIR 100 UNIT/ML X5UNITS SQ SCH (22:15)
[2016-12-27] MEDS: 0.9 % Sodium Chloride 1,000 ML IVC SCH (23:20)
[2016-12-28] MEDS: Insulin LISPRO 300 UNITS/3 ML VIAL SQ SCH ×4 (01:01→17:18)
[2016-12-28 04:11] LABS: VBG HCO3 30.4 mEq/L (21-27); VBG PH 7.35 pH Units (7.32-7.42)
[2016-12-28 04:15] LABS: Basophils # 0.1 K/mcL (0.0-0.2); Basophils % 1.1 %; Eosinophils # 0.2 K/mcL (0.0-0.6); Eosinophils % 3.7 %; Hematocrit 44.7 % (37.5-50.1); Immature Granulocytes % 0.4 % (0-4); Lymphocytes # 0.9 K/mcL (0.6-4.6); Lymphocytes % 20.1 %; Mean Corpuscular HGB Conc 32.2 g/dL (31.6-35.5); Mean Corpuscular Hemoglobin 28.1 pg (28.0-33.3); Mean Corpuscular Volume 87.1 fL (83.0-100.0); Mean Platelet Volume 10.6 fL (9.4-12.4); Monocytes # 0.9 K/mcL (0.0-1.3); Neutrophils # 2.6 K/mcL (1.6-8.9); Platelet Count 212 K/mcL (140-400); Red Blood Count 5.13 M/mcL (4.19-5.50); Red Cell Distribution Width 13.3 % (11.5-14.5); Segmented Neutrophils % 55.7 %
[2016-12-28 04:44] LABS: Alanine Aminotransferase 25 Units/L (0-55); Albumin 3.2 g/dL (3.5-5.0); Albumin/Globulin Ratio 0.8 (1.1-2.2); Alkaline Phosphatase 68 Units/L (38-126); Aspartate Amino Transferase 23 Units/L (5-34); BUN/Creatinine Ratio 18 (6-26); Bilirubin,Total 0.5 mg/dL (0.2-1.2); Blood Urea Nitrogen 16 mg/dL (8-26); Carbon Dioxide 24 mEq/L (19-29); Chloride 104 mEq/L (98-109); Glucose 135 mg/dL (70-99); Osmolality,Calculated 291 (280-300); Potassium 3.4 mEq/L (3.5-4.5); Sodium 139 mEq/L (136-145); Total Protein 7.2 g/dL (6.0-8.3); eGFR For African Americans > 60 (> 60); eGFR For Non-African Americans > 60 (> 60)
[2016-12-28 05:05] LABS: Hemoglobin 14.4 g/dL (12.9-16.9)
[2016-12-28 05:08] LABS: Platelet Estimate Normal (Normal)
[2016-12-28 05:11] LABS: Large Platelets Present (Not Present); Reactive Lymphocytes Present (Not Present)
[2016-12-28] MEDS ORDERED: *HR* OxyCODONE Immed Rel 5 MG TABLET PO PRN (06:17)
[2016-12-28] MEDS ORDERED: Ondansetron 4 MG/2 ML VIAL IVP PRN (06:17)
[2016-12-28] MEDS ORDERED: *HR* Morphine 2 MG/ML SYRINGE IVP PRN (06:17)
[2016-12-28] MEDS: Aspirin Enteric Coated 81 MG Tablet PO SCH (10:20)
[2016-12-28] MEDS: Tiotropium 18 MCG inhalation IH SCH (10:24)
[2016-12-28] MEDS: Beclomethasone 80mcg MDI IH SCH ×2 (10:26→22:58)
--- NOTE | 2016-12-28 13:54 | Internal Med Progress Note ---
Date of Encounter: 12/28/16 Time of Encounter: 13:52 - Assessment and plan (1) Dementia Current Visit: Yes Status: Chronic Assessment and plan: Per previous notes, he refuses to take any meds at home and has been noncompliant for a few months-years now. Probably has progressive dementia. Fall precautions and supportive care. PT/OT evaluation, patient will likely benefit from SNF placement. family services manager consulted for safe discharge as there is a question of APS reporting per ER SW notes. Qualifiers: Dementia type: Alzheimer's disease Alzheimer's disease onset: late-onset Dementia behavioral disturbance: without behavioral disturbance Qualified Code (s): G30.1 - Alzheimer's disease with late onset; F02.80 - Dementia in other diseases classified elsewhere without behavioral disturbance (2) Generalized weakness Current Visit: Yes Status: Acute Assessment and plan: IV hydration and supportive care. Likely due to mild acute bronchitis along with being in a chair for almost a day; (3) Essential hypertension Current Visit: Yes Status: Chronic Assessment and plan: continue Lisinopril; BP well-controlled; (4) COPD (chronic obstructive pulmonary disease) Current Visit: Yes Status: Chronic Assessment and plan: continue PRN bronchodilators and supplemental O2; not in acute exacerbation. Qualifiers: COPD type: unspecified COPD Qualified Code(s): J44.9 - Chronic obstructive pulmonary disease, unspecified (5) Diabetes Current Visit: Yes Status: Chronic Assessment and plan: noncompliant with diet and medications. Check HbA1C. Start Accucheck blood glucose monitoring with basal bolus insulin regimen. Change to diabetic diet. Increase Levemir and sliding scale due to uncontrolled blood sugars. Qualifiers: Diabetes mellitus type: type 2 Diabetes mellitus complication status: with hyperglycemia Diabetes mellitus senior care insulin use: without senior care use Qualified Code(s): E11.65 - Type 2 diabetes mellitus with hyperglycemia - Subjective Interval history: Able to tell me his name and place. Unsure why he was brought to the hospital. Reports some cough but no chest pain, abdominal pain, dyspnea; - Constitutional Vitals: Temp Pulse Resp BP Pulse Ox 98.1 F 79 16 147/72 94 L 12/28/16 10:50 12/28/16 10:50 12/28/16 10:50 12/28/16 10:50 12/28/16 10:50 General appearance: Present: A&O X 2, no acute distress - Head Head exam: Present: atraumatic, normocephalic - Neck Neck exam general surgery: Present: supple, trachea midline. Absent: lymphadenopathy - Respiratory Respiratory exam: Present: CTAB (coarse breath sounds B/L), rhonchi (scattered rhonchi posteriorly). Absent: accessory muscle use, rales, wheezes - Cardiovascular Cardiovascular exam: Present: RRR, +S1, +S2. Absent: diastolic murmur, gallop, rubs, systolic murmur - GI/Abdominal GI/Abdominal exam: Present: normal bowel sounds, soft, no peritoneal signs. Absent: distended, tenderness - Extremities Exam Extremities exam: Present: full ROM, warm, radial pulses palpable and symetrical. Absent: calf tenderness, cyanotic, pedal edema - Neurological Exam Neurological exam: Present: no focal deficits. Absent: pronater drift, facial droop, speech deficit Internal Medicine: Result - Labs CBC & Chem 7: 12/28/16 03:59 12/28/16 03:59 - ABG Interpretation ABG results: PT/INR, D-dimer PT 11.6 Seconds (9.4-12.1) 12/27/16 13:34 - VTE Documentation of Mechanical Device: Graduated compression elastic hosiery Consult Discharge Plan - Plan Referrals: Jose Don MD [Primary Care Provider] -
[2016-12-28] MEDS: 0.9 % Sodium Chloride 1,000 ML IVC SCH (14:26)
[2016-12-28 14:36] LABS: Hemoglobin A1C 11.9 %
[2016-12-28] MEDS: Albuterol 2.5 MG/3 ML NEBULIZER IH SCH ×2 (16:24→22:57)
[2016-12-28] MEDS: *HR* Heparin 5,000 UNIT/ML VIAL SQ SCH (18:12)
[2016-12-28] MEDS: Insulin DETEMIR 100 UNIT/ML X5UNITS SQ SCH (22:14)
[2016-12-29] MEDS: Insulin LISPRO 300 UNITS/3 ML VIAL SQ SCH ×4 (00:35→18:16)
[2016-12-29] MEDS: 0.9 % Sodium Chloride 1,000 ML IVC SCH ×2 (02:44→16:38)
[2016-12-29] MEDS: Albuterol 2.5 MG/3 ML NEBULIZER IH SCH ×4 (03:52→22:25)
[2016-12-29] MEDS: *HR* Heparin 5,000 UNIT/ML VIAL SQ SCH ×2 (06:05→18:16)
[2016-12-29] MEDS: Insulin DETEMIR 100 UNIT/ML X5UNITS SQ SCH ×2 (10:20→20:16)
[2016-12-29] MEDS: Aspirin Enteric Coated 81 MG Tablet PO SCH (10:21)
[2016-12-29] MEDS: Tiotropium 18 MCG inhalation IH SCH (10:41)
[2016-12-29] MEDS: Beclomethasone 80mcg MDI IH SCH ×2 (10:41→22:25)
--- NOTE | 2016-12-29 11:51 | Internal Med Progress Note ---
Date of Encounter: 12/29/16 Time of Encounter: 11:48 - Assessment and plan (1) Dementia Current Visit: Yes Status: Chronic Assessment and plan: Per previous notes, he refuses to take any meds at home and has been noncompliant for a few months-years now. Probably has progressive dementia. Fall precautions and supportive care. PT/OT evaluation pending, patient will likely benefit from SNF placement. technical services specialist consulted for safe discharge as there is a question of APS reporting per ER SW notes. Qualifiers: Dementia type: Alzheimer's disease Alzheimer's disease onset: late-onset Dementia behavioral disturbance: without behavioral disturbance Qualified Code (s): G30.1 - Alzheimer's disease with late onset; F02.80 - Dementia in other diseases classified elsewhere without behavioral disturbance (2) Generalized weakness Current Visit: Yes Status: Acute Assessment and plan: IV hydration and supportive care. Improving. Likely due to mild acute bronchitis along with being in a chair for almost a day; (3) Essential hypertension Current Visit: Yes Status: Chronic Assessment and plan: continue Lisinopril; BP well-controlled; (4) COPD (chronic obstructive pulmonary disease) Current Visit: Yes Status: Chronic Qualifiers: COPD type: unspecified COPD Qualified Code(s): J44.9 - Chronic obstructive pulmonary disease, unspecified (5) Diabetes Current Visit: Yes Status: Chronic Assessment and plan: noncompliant with diet and medications. Hemoglobin A1c noted to be 11.9%. Blood sugars noted to be better controlled today. Continue basal bolus insulin regimen. Diabetic diet. Accucheck blood glucose monitoring. Patient will benefit from placement at extended care facility. Qualifiers: Diabetes mellitus type: type 2 Diabetes mellitus complication status: with hyperglycemia Diabetes mellitus lab rn insulin use: without usp use Qualified Code(s): E11.65 - Type 2 diabetes mellitus with hyperglycemia - Subjective Interval history: Reports no new complaints. Noted to have improving generalized strength. Tolerates oral diet. Blood sugars noted to be better controlled today. Awaiting physical therapy evaluation. - Constitutional Vitals: Temp Pulse Resp BP Pulse Ox 98.3 F 100 16 137/72 93 L 12/29/16 11:06 12/29/16 11:06 12/29/16 11:06 12/29/16 11:06 12/29/16 11:06 General appearance: Present: A&O X 2, no acute distress - Respiratory Respiratory exam: Present: CTAB. Absent: accessory muscle use, rales, rhonchi, wheezes - Cardiovascular Cardiovascular exam: Present: RRR, +S1, +S2. Absent: diastolic murmur, gallop, rubs, systolic murmur - GI/Abdominal GI/Abdominal exam: Present: normal bowel sounds, soft, no peritoneal signs. Absent: distended, tenderness - Extremities Exam Extremities exam: Present: warm, radial pulses palpable and symetrical. Absent : calf tenderness, cyanotic, pedal edema Internal Medicine: Result - Labs CBC & Chem 7: 12/28/16 03:59 12/28/16 03:59 - ABG Interpretation ABG results: PT/INR, D-dimer PT 11.6 Seconds (9.4-12.1) 12/27/16 13:34 - VTE Documentation of Mechanical Device: Graduated compression elastic hosiery Consult Discharge Plan - Plan Referrals: Jose Don MD [Primary Care Provider] -
[2016-12-30] MEDS: Insulin LISPRO 300 UNITS/3 ML VIAL SQ SCH ×5 (01:17→20:50)
[2016-12-30] MEDS ORDERED: Haloperidol Lactate 5 MG/ML VIAL ONE (02:15)
[2016-12-30] MEDS: Haloperidol Lactate 5 MG/ML VIAL IVP ONE ×2 (02:18→03:07)
[2016-12-30] MEDS ORDERED: Haloperidol Lactate 5 MG/ML VIAL IVP ONE (02:45)
[2016-12-30] MEDS ORDERED: *HR* LORazepam 2 MG/ML VIAL ONE (02:45)
[2016-12-30] MEDS: *HR* LORazepam 2 MG/ML VIAL IVP PRN ×3 (02:47→04:59)
--- NOTE | 2016-12-30 03:41 | Event Note ---
Date of Encounter: 12/30/16 Time of Encounter: 03:38 Patient wanting to get out of bed, also with increased agitation. Trial of sitter failed. Ativan was added to Haldol to calm patient. Patient still waiting on PT eval and will most likely need SNF for discharge due to admission for fall/generalized weakness.
[2016-12-30] MEDS: 0.9 % Sodium Chloride 1,000 ML IVC SCH ×2 (04:59→16:27)
[2016-12-30] MEDS: Albuterol 2.5 MG/3 ML NEBULIZER IH SCH ×4 (05:06→22:58)
[2016-12-30] MEDS: *HR* Heparin 5,000 UNIT/ML VIAL SQ SCH ×2 (06:05→18:09)
[2016-12-30] MEDS: Insulin DETEMIR 100 UNIT/ML X5UNITS SQ SCH ×2 (08:07→20:44)
[2016-12-30] MEDS: Aspirin Enteric Coated 81 MG Tablet PO SCH (08:07)
[2016-12-30] MEDS: Beclomethasone 80mcg MDI IH SCH ×2 (09:53→22:58)
[2016-12-30] MEDS: Tiotropium 18 MCG inhalation IH SCH (09:54)
[2016-12-30] MEDS ORDERED: Haloperidol Lactate 5 MG/ML VIAL IVP PRN (11:46)
--- NOTE | 2016-12-30 16:08 | Internal Med Progress Note ---
Date of Encounter: 12/30/16 Time of Encounter: 16:05 - Assessment and plan (1) Dementia Current Visit: Yes Status: Chronic Assessment and plan: Noted to have sundowning and agitation last night and received a dose of IV Ativan and Haldol. On 1:1 sitter for safety; continue PRN IV Haldol. Medical noncompliance at home, will benefit from ECF placement, if needed. Fall precautions and supportive care. PT/OT evaluation pending. field services director consulted for safe discharge as there is a question of APS reporting per ER SW notes. Patient also possibly has underlying depression as he began declining since his 's in May 2016 per SW notes. Qualifiers: Dementia type: Alzheimer's disease Alzheimer's disease onset: late-onset Dementia behavioral disturbance: without behavioral disturbance Qualified Code (s): G30.1 - Alzheimer's disease with late onset; F02.80 - Dementia in other diseases classified elsewhere without behavioral disturbance (2) Generalized weakness Current Visit: Yes Status: Acute Assessment and plan: Improving. Likely due to mild acute bronchitis along with being in a chair for almost a day; PT evaluation pending. (3) Essential hypertension Current Visit: Yes Status: Chronic Assessment and plan: continue Lisinopril; BP well-controlled; (4) COPD (chronic obstructive pulmonary disease) Current Visit: Yes Status: Chronic Qualifiers: COPD type: unspecified COPD Qualified Code(s): J44.9 - Chronic obstructive pulmonary disease, unspecified (5) Diabetes Current Visit: Yes Status: Chronic Assessment and plan: noncompliant with diet and medications. Hemoglobin A1c noted to be 11.9%. Blood sugars noted to be better controlled today. Continue basal bolus insulin regimen. Diabetic diet. Accucheck blood glucose monitoring. Patient will benefit from placement at extended care facility. Qualifiers: Diabetes mellitus type: type 2 Diabetes mellitus complication status: with hyperglycemia Diabetes mellitus mcc insulin use: without oil heaterman use Qualified Code(s): E11.65 - Type 2 diabetes mellitus with hyperglycemia - Subjective Interval history: Sitting up in chair eating a snack. No chest pain, nausea, vomiting, dyspnea. No bowel movements yet. Awaiting PT evaluation. - Constitutional Vitals: Temp Pulse Resp BP Pulse Ox 98.0 F 89 15 147/65 94 L 12/30/16 15:49 12/30/16 15:49 12/30/16 15:49 02/20/17 15:49 12/30/16 15:49 General appearance: Present: A&O X 2 (short term memory issues), no acute distress - Respiratory Respiratory exam: Present: CTAB. Absent: accessory muscle use, rales, rhonchi, wheezes - Cardiovascular Cardiovascular exam: Present: RRR, +S1, +S2. Absent: diastolic murmur, gallop, rubs, systolic murmur - GI/Abdominal GI/Abdominal exam: Present: normal bowel sounds, soft, no peritoneal signs. Absent: distended, tenderness - Extremities Exam Extremities exam: Present: full ROM, warm, radial pulses palpable and symetrical. Absent: calf tenderness, cyanotic, pedal edema Internal Medicine: Result - Labs CBC & Chem 7: 12/28/16 03:59 12/28/16 03:59 - ABG Interpretation ABG results: PT/INR, D-dimer PT 11.6 Seconds (9.4-12.1) 12/27/16 13:34 - VTE Documentation of Mechanical Device: Graduated compression elastic hosiery Consult Discharge Plan - Plan Referrals: Jose Don MD [Primary Care Provider] -
[2016-12-31] MEDS: Albuterol 2.5 MG/3 ML NEBULIZER IH SCH ×2 (04:13→10:55)
[2016-12-31] MEDS: Acetaminophen 325 MG TABLET PO PRN (04:53)
[2016-12-31] MEDS: *HR* Heparin 5,000 UNIT/ML VIAL SQ SCH ×2 (06:18→18:16)
[2016-12-31] MEDS: 0.9 % Sodium Chloride 1,000 ML IVC SCH ×2 (06:18→21:06)
[2016-12-31] MEDS: Insulin DETEMIR 100 UNIT/ML X5UNITS SQ SCH ×2 (08:04→20:53)
[2016-12-31] MEDS: Insulin LISPRO 300 UNITS/3 ML VIAL SQ SCH ×4 (08:04→20:53)
[2016-12-31] MEDS: Aspirin Enteric Coated 81 MG Tablet PO SCH (08:04)
[2016-12-31] MEDS: Beclomethasone 80mcg MDI IH SCH ×2 (10:55→20:09)
[2016-12-31] MEDS: Tiotropium 18 MCG inhalation IH SCH (10:55)
[2016-12-31] MEDS: Ipratropium/Albuterol Neb 3 ML IH SCH ×2 (16:05→20:09)
--- NOTE | 2016-12-31 19:14 | Internal Med Progress Note ---
Date of Encounter: 12/31/16 Time of Encounter: 20:00 - Assessment and plan (1) Delirium Current Visit: Yes Status: Acute (2) Physical deconditioning Current Visit: Yes Status: Acute (3) Acute metabolic encephalopathy Current Visit: Yes Status: Acute (4) Generalized weakness Current Visit: Yes Status: Acute (5) COPD (chronic obstructive pulmonary disease) Current Visit: Yes Status: Chronic Qualifiers: COPD type: unspecified COPD Qualified Code(s): J44.9 - Chronic obstructive pulmonary disease, unspecified - Time Spent With Patient Plan discussed with staff, will check chest x-ray, Duonep Q4 hour, add Mucinex, check swallow evaluation, check CBC BMP and magnesium phosphorus, for possible Wernicke-Korsakoff encephalopathy, add thiamine, we will consult psychiatrist, add SSRI to help with sleep and anxiety. Try to avoid Ativan. PTOT. Need rehabilitation on discharge. 25 - 35 minutes - Subjective Interval history: Patient was agitated overnight, today he is so depressed, very sleepy. Moving all extremities, abdominal discomfort postvoiding residual 400, - Constitutional Vitals: Temp Pulse Resp BP Pulse Ox 98.2 F 84 20 121/71 95 12/31/16 15:59 12/31/16 15:59 12/31/16 16:05 12/31/16 15:59 12/31/16 16:05 General appearance: Present: A&O X 2 (short term memory issues), no acute distress - Head Head exam: Present: atraumatic, normocephalic - Neck Neck exam general surgery: Present: supple, trachea midline. Absent: lymphadenopathy - Respiratory Respiratory exam: Present: decreased breath sounds, CTAB, prolonged expiratory phase, rales, wheezes. Absent: accessory muscle use, rhonchi - Cardiovascular Cardiovascular exam: Present: RRR, +S1, +S2. Absent: diastolic murmur, gallop, rubs, systolic murmur - GI/Abdominal GI/Abdominal exam: Present: distended, hypoactive bowel sounds, soft, tenderness (Diffuse abdominal tenderness with fullness and suprapubic area), no peritoneal signs - Extremities Exam Extremities exam: Present: warm, radial pulses palpable and symetrical. Absent : calf tenderness, cyanotic, pedal edema Internal Medicine: Result - Labs CBC & Chem 7: 12/28/16 03:59 12/28/16 03:59 - ABG Interpretation ABG results: PT/INR, D-dimer PT 11.6 Seconds (9.4-12.1) 12/27/16 13:34 - VTE Documentation of Mechanical Device: Graduated compression elastic hosiery Consult Discharge Plan - Plan Referrals: Jose Don MD [Primary Care Provider] - Jeanie Ellis CNP [Advanced Practice Nurse] - 01/08/17 10:00 am
[2016-12-31] MEDS ORDERED: Thiamine (B-1) 100 MG in D5% in Water 50 ML IVPB STA (19:21)
[2016-12-31 20:11] LABS: BUN/Creatinine Ratio 13 (6-26); Blood Urea Nitrogen 11 mg/dL (8-26); Calcium 8.5 mg/dL (8.6-10.8); Carbon Dioxide 25 mEq/L (19-29); Chloride 104 mEq/L (98-109); Glucose 254 mg/dL (70-99); Osmolality,Calculated 292 (280-300); Phosphorous 3.4 mg/dL (2.3-4.7); Potassium 3.6 mEq/L (3.5-4.5); Sodium 137 mEq/L (136-145); eGFR For African Americans > 60 (> 60); eGFR For Non-African Americans > 60 (> 60)
[2016-12-31] MEDS ORDERED: Mirtazapine 15 MG TABLET PO SCH (21:00)
[2016-12-31] MEDS: Haloperidol Lactate 5 MG/ML VIAL IVP PRN (23:32)
[2017-01-01] MEDS ORDERED: *HR* Morphine 2 MG/ML SYRINGE IVP PRN (04:20)
[2017-01-01] MEDS: Ipratropium/Albuterol Neb 3 ML IH SCH ×4 (04:22→21:13)
[2017-01-01] MEDS: Nitroglycerin 0.4 MG TAB.SUBL SL PRN ×2 (04:34→04:42)
[2017-01-01 05:43] LABS: Basophils % 0.4 %; Eosinophils # 0.2 K/mcL (0.0-0.6); Eosinophils % 2.2 %; Hematocrit 41.1 % (37.5-50.1); Hemoglobin 13.5 g/dL (12.9-16.9); Immature Granulocytes % 0.2 % (0-4); Lymphocytes % 20.5 %; Mean Corpuscular HGB Conc 32.8 g/dL (31.6-35.5); Mean Corpuscular Hemoglobin 28.5 pg (28.0-33.3); Mean Corpuscular Volume 86.9 fL (83.0-100.0); Mean Platelet Volume 10.3 fL (9.4-12.4); Monocytes % 11.3 %; Neutrophils # 5.9 K/mcL (1.6-8.9); Platelet Count 243 K/mcL (140-400); Red Blood Count 4.73 M/mcL (4.19-5.50); Segmented Neutrophils % 65.4 %
[2017-01-01 05:58] LABS: BUN/Creatinine Ratio 13 (6-26); Blood Urea Nitrogen 10 mg/dL (8-26); Calcium 9.2 mg/dL (8.6-10.8); Carbon Dioxide 27 mEq/L (19-29); Chloride 106 mEq/L (98-109); Glucose 148 mg/dL (70-99); Magnesium 1.3 mg/dL (1.6-2.6); Osmolality,Calculated 296 (280-300); Phosphorous 3.3 mg/dL (2.3-4.7); Potassium 3.6 mEq/L (3.5-4.5); Sodium 142 mEq/L (136-145); eGFR For African Americans > 60 (> 60); eGFR For Non-African Americans > 60 (> 60)
[2017-01-01 06:30] LABS: Lymphocytes # 1.9 K/mcL (0.6-4.6)
[2017-01-01 06:31] LABS: Platelet Estimate Normal (Normal); Reactive Lymphocytes Present (Not Present)
[2017-01-01] MEDS: *HR* Heparin 5,000 UNIT/ML VIAL SQ SCH ×2 (06:43→18:48)
[2017-01-01] MEDS: Insulin LISPRO 300 UNITS/3 ML VIAL SQ SCH ×4 (09:34→22:18)
[2017-01-01] MEDS: Thiamine (B-1) 100 MG TABLET PO SCH (09:35)
[2017-01-01] MEDS: Aspirin Enteric Coated 81 MG Tablet PO SCH (09:35)
[2017-01-01] MEDS: Insulin DETEMIR 100 UNIT/ML X5UNITS SQ SCH ×2 (09:37→22:32)
[2017-01-01] MEDS: Beclomethasone 80mcg MDI IH SCH ×2 (10:57→21:13)
[2017-01-01] MEDS ORDERED: Magnesium Sulfate 2 GM in D5% in Water 100 ML IVPB ONE (13:58)
--- NOTE | 2017-01-01 15:17 | Consult Note ---
Date of Encounter: 01/01/17 Time of Encounter: 15:00 Assessment & Recommendation (1) Delirium due to general medical condition Current visit: Yes Status: Acute Assessment & Recommendation: Review of records and information given by patient's daughter suggests that patient's with multiple complex medical problems, cannot live independently. There is diagnosis of dementia on the records in addition to history of alcohol dependence reported by the daughter and inability to care for himself as indicated by his metabolic profile and encephalopathy. At this time the recommendations: 1. Continue medical management by the medical team to resolve the delirium 2. Family and discharge team should discuss appropriate disposition and placement options to assure safety for this patient and his complex medical condition. 3. Please address any questions to help the team make those decisions. Thank you for the consultation (2) Delirium due to conditions classified elsewhere Current visit: Yes Status: Acute History of Present Illness Patient: new to practice Requesting Physician: Faby Han MD Reason for consult: Agitation and depression History of present illness: Mr. Espinoza is a 76 year old male admitted to the hospital evaluation and treatment off multiple medical conditions as well be listed in addition to change mental status and EMS brought the patient to the hospital where he was evaluated and admitted to the medical. Patient medical history significant for diabetes and COPD dementia up her respiratory problem and please see medical records for detailed medical history. Psychiatric consultation was requested to evaluate depression and agitation. 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 Patient was lethargic and deeply asleep and could not be interviewed or evaluated for his condition and delirious state. We will continue Abilify and review of records indicates that family is concerned about patient's safety and ability to live independently. CC: Faby Han MD Past Med Surg Social Fam HX - Past Medical History Medical history: arthritis, cancer, COPD, coronary artery disease, CVA, dementia , diabetes, GERD, hyperlipidemia, hypertension, osteoporosis, peripheral artery disease, other - Past Psychiatric History Psychiatric history: Reports: no psych history - Past Surgical History Surgical History: cancer surgery (bracytherapy for prostate cancer), cataract, other (tonsillectomy) - Social History Smoking Status: Former smoker Smokeless Tobacco Status: No Alcohol use: none Drug use: none - Family History Mother Living Status: Medications & Allergies Albuterol Sulfate [Proair Respiclick] 90 mcg IH Q4HR PRN 12/27/16 [History] Amoxicillin 500 mg PO TID #30 tablet 12/27/16 [Rx] Aspirin [Lo-Dose Aspirin EC] 81 mg PO DAILY 12/27/16 [History] Fluticasone Propionate [Flovent Hfa] 10.6 gm IH TID 12/27/16 [History] Glimepiride [Amaryl] 4 mg PO QAM 12/27/16 [History] Insulin Glargine,Hum.rec.anlog [Lantus Solostar] 10 unit SQ DAILY 12/27/16 [ History] Lisinopril 2.5 mg PO DAILY 12/27/16 [History] Metformin HCl [Fortamet] 500 mg PO DAILY 12/27/16 [History] Sildenafil Citrate [Viagra] 100 mg PO DAILY PRN 12/27/16 [History] Simvastatin [Zocor] 20 mg PO HS 12/27/16 [History] Tiotropium [Spiriva] 18 mcg IH DAILY 12/27/16 [History] Allergies tetanus and diphtheria toxoids [Tetanus&Diphtheria Toxoid] Adverse Reaction ( Verified 10/05/15 22:32) Hives Review of Systems Psychiatric: Reports: other (Deferred, patient is lethargic and unable to participate in evaluation) Mental Status Exam Patient orientation: Yes Other (Lethargic and delirious.) Level of alertness: Other (Lethargic) Patient appearance: Unkempt, Disheveled, Malodorous Results - Vital Signs Vital signs: Temp Pulse Resp BP Pulse Ox 99.6 F 89 16 120/67 96 01/01/17 10:56 01/01/17 10:56 01/01/17 10:58 01/01/17 10:56 01/01/17 10:58 - Labs Labs: Laboratory Last Values WBC 9.0 K/mcL (4.3-11.1) D 01/01/17 05:15 RBC 4.73 M/mcL (4.19-5.50) 01/01/17 05:15 Hgb 13.5 g/dL (12.9-16.9) 01/01/17 05:15 Hct 41.1 % (37.5-50.1) 01/01/17 05:15 MCV 86.9 fL (83.0-100.0) 01/01/17 05:15 MCH 28.5 pg (28.0-33.3) 01/01/17 05:15 MCHC 32.8 g/dL (31.6-35.5) 01/01/17 05:15 RDW 13.0 % (11.5-14.5) 01/01/17 05:15 Plt Count 243 K/mcL (140-400) 01/01/17 05:15 MPV 10.3 fL (9.4-12.4) 01/01/17 05:15 Immature Gran % 0.2 % (0-4) 01/01/17 05:15 Seg Neutrophils % 65.4 % 01/01/17 05:15 Lymphocytes % 20.5 % 01/01/17 05:15 Monocytes % 11.3 % 01/01/17 05:15 Eosinophils % 2.2 % 01/01/17 05:15 Basophils % 0.4 % 01/01/17 05:15 Neutrophils # 5.9 K/mcL (1.6-8.9) 01/01/17 05:15 Lymphocytes # 1.9 K/mcL (0.6-4.6) 01/01/17 05:15 Monocytes # 1.0 K/mcL (0.0-1.3) 01/01/17 05:15 Eosinophils # 0.2 K/mcL (0.0-0.6) 01/01/17 05:15 Basophils # 0.0 K/mcL (0.0-0.2) 01/01/17 05:15 Reactive Lymphocytes Present (Not Present) A 01/01/17 05:15 Platelet Estimate Normal (Normal) 01/01/17 05:15 Large Platelets Present (Not Present) A 12/28/16 03:59 ESR 61 mm/hr (0-10) H 12/28/16 03:59 PT 11.6 Seconds (9.4-12.1) 12/27/16 13:34 INR 1.1 12/27/16 13:34 APTT 30.3 Seconds (26.0-36.0) 12/27/16 13:34 VBG pH 7.35 pH Units (7.32-7.42) 12/28/16 03:59 VBG pCO2 55 mmHg (41-51) H 12/28/16 03:59 VBG pO2 28 mmHg (25-40) 12/28/16 03:59 VBG HCO3 30.4 mEq/L (21-27) H 12/28/16 03:59 Sodium 142 mEq/L (136-145) 01/01/17 05:15 Potassium 3.6 mEq/L (3.5-4.5) 01/01/17 05:15 Chloride 106 mEq/L (98-109) 01/01/17 05:15 Carbon Dioxide 27 mEq/L (19-29) 01/01/17 05:15 BUN 10 mg/dL (8-26) 01/01/17 05:15 Creatinine 0.75 mg/dL (0.72-1.25) 01/01/17 05:15 Est GFR ( Amer) > 60 (> 60) 01/01/17 05:15 Est GFR (Non-Af Amer) > 60 (> 60) 01/01/17 05:15 BUN/Creatinine Ratio 13 (6-26) 01/01/17 05:15 Glucose 148 mg/dL (70-99) H 01/01/17 05:15 POC Glucose 130 (58-89) H 01/01/17 11:12 Est Mean Plasma Glucose 295 mg/dl 12/28/16 03:59 Hemoglobin A1c 11.9 % (-5.6) H 12/28/16 03:59 Calculated Osmolality 296 (280-300) 01/01/17 05:15 Calcium 9.2 mg/dL (8.6-10.8) 01/01/17 05:15 Phosphorus 3.3 mg/dL (2.3-4.7) 01/01/17 05:15 Magnesium 1.3 mg/dL (1.6-2.6) L 01/01/17 05:15 Total Bilirubin 0.5 mg/dL (0.2-1.2) 12/28/16 03:59 Direct Bilirubin 0.2 mg/dL (0.0-0.5) 12/27/16 13:34 Indirect Bilirubin 0.4 mg/dL (0.0-1.2) 12/27/16 13:34 AST 23 Units/L (5-34) 12/28/16 03:59 ALT 25 Units/L (0-55) 12/28/16 03:59 Alkaline Phosphatase 68 Units/L (38-126) 12/28/16 03:59 Creatine Kinase 52 Units/L (30-200) 12/27/16 13:34 Troponin I 0.01 ng/mL (0-0.03) 01/01/17 05:15 C-Reactive Protein 53 mg/L (Less than 5) H 12/28/16 03:59 Serum Total Protein 7.2 g/dL (6.0-8.3) 12/28/16 03:59 Albumin 3.2 g/dL (3.5-5.0) L 12/28/16 03:59 Globulin 4.0 g/dL (2.4-3.5) H 12/28/16 03:59 Albumin/Globulin Ratio 0.8 (1.1-2.2) L 12/28/16 03:59 Vitamin B12 479 pg/mL (213-816) 01/01/17 05:15 25-OH Vitamin D Total 15 ng/mL (30-80) L 01/01/17 05:15 Urine Color Yellow (Yellow) 12/27/16 13:38 Urine Clarity Clear (Clear) 12/27/16 13:38 Urine pH 5.5 pH Units (5.0-8.0) 12/27/16 13:38 Ur Specific [place] > 1.030 (1.010-1.025) H 12/27/16 13:38 Urine Protein 30 mg/dL (Neg-Trace) H 12/27/16 13:38 Urine Glucose (UA) >=1000 mg/dL (Normal) H 12/27/16 13:38 Urine Ketones Negative mg/dL (Negative) 12/27/16 13:38 Urine Blood Negative (Negative) 12/27/16 13:38 Urine Nitrite Negative (Negative) 12/27/16 13:38 Urine Bilirubin Negative (Negative) 12/27/16 13:38 Urine Urobilinogen Normal mg/dL (Normal) 12/27/16 13:38 Ur Leukocyte Esterase Negative (Negative) 12/27/16 13:38 Urine Microscopic RBC 0-3 per hpf (0-3) 12/27/16 13:38 Urine Microscopic WBC 0-3 per hpf (0-3) 12/27/16 13:38 Ur Squamous Epith Cells Moderate per lpf (None-Few) H 12/27/16 13:38 Urine Bacteria None Seen per hpf (None-Few) 12/27/16 13:38 Hyaline Casts None Seen per lpf (None-Few) 12/27/16 13:38 Ur Culture Indicated? NO (NO) 12/27/16 13:38 Urine Opiates Screen Negative ng/mL (Ezwanj=750) 12/27/16 13:38 Ur Barbiturates Screen Negative ng/mL (Nrybpg=169) 12/27/16 13:38 Ur Phencyclidine Scrn Negative ng/mL (Cutoff=25) 12/27/16 13:38 Ur Amphetamines Screen Negative ng/mL (Iydqmn=0842) 12/27/16 13:38 U Benzodiazepines Scrn Negative ng/mL (Rkcjcg=529) 12/27/16 13:38 Urine Cocaine Screen Negative ng/mL (Cutoff= 300) 12/27/16 13:38 U Marijuana (THC) Screen Negative ng/mL (Cutoff = 50) 12/27/16 13:38 Ethyl Alcohol < 10 mg/dL (0-10) 12/27/16 13:34 - Impressions Impressions Chest X-Ray 01/01/17 13:17 IMPRESSION: No acute process. D/ / Kei Ontiveros MD / Kei Ontiveros MD Interpreting Provider: Kei Ontiveros MD Consult Discharge Plan - Plan Referrals: Jose Don MD [Primary Care Provider] - Jeanie Ellis CNP [Advanced Practice Nurse] - 01/08/17 10:00 am
--- NOTE | 2017-01-01 15:54 | Internal Med Progress Note ---
Date of Encounter: 01/01/17 Time of Encounter: 16:00 - Assessment and plan (1) Delirium Current Visit: Yes Status: Acute (2) Physical deconditioning Current Visit: Yes Status: Acute (3) Acute metabolic encephalopathy Current Visit: Yes Status: Acute (4) Generalized weakness Current Visit: Yes Status: Acute (5) COPD (chronic obstructive pulmonary disease) Current Visit: Yes Status: Chronic Qualifiers: COPD type: unspecified COPD Qualified Code(s): J44.9 - Chronic obstructive pulmonary disease, unspecified (6) Hypomagnesemia Current Visit: Yes Status: Acute (7) Vitamin D deficiency Current Visit: Yes Status: Acute (8) Dementia Current Visit: Yes Status: Acute Qualifiers: Dementia type: associated with alcoholism Dementia behavioral disturbance: with behavioral disturbance Qualified Code(s): F03.91 - Unspecified dementia with behavioral disturbance; F10.97 - Alcohol use, unspecified with alcohol- induced persisting dementia - Time Spent With Patient Plan Discussed with daughter at bedside as well as pharmacist case fitter and RN. Patient small dose of Aricept at bedtime. Continue SSRI. IV hydration. Replace magnesium. Monitor for any urinary retention. Laxatives as needed. Mechanical soft diet. PTOT, patient need rehabilitation Greater than 35 minutes - Subjective Interval history: Patient was agitated overnight again, He wanted to go home today, he is so depressed since his . Patient continued to be confused, markedly diminished oral intake, refused to eat he stated he does not have appetite. Daughter stated that he had history of dementia. - Constitutional Vitals: Temp Pulse Resp BP Pulse Ox 98.9 F 80 16 148/74 90 L 01/01/17 15:42 01/01/17 15:42 01/01/17 15:42 01/01/17 15:42 01/01/17 15:42 General appearance: Present: A&O X 2 (short term memory issues), no acute distress - Head Head exam: Present: atraumatic, normocephalic - Neck Neck exam general surgery: Present: supple, trachea midline. Absent: lymphadenopathy - Respiratory Respiratory exam: Present: decreased breath sounds (Decreased breathing sound bilateral ) - Cardiovascular Cardiovascular exam: Present: RRR, +S1, +S2. Absent: diastolic murmur, gallop, rubs, systolic murmur - GI/Abdominal GI/Abdominal exam: Present: normal bowel sounds, soft, tenderness (Mild diffuse abdominal tenderness), no peritoneal signs. Absent: distended - Extremities Exam Extremities exam: Present: warm, radial pulses palpable and symetrical. Absent : calf tenderness, cyanotic, pedal edema - Neurological Exam Neurological exam: Present: alert - Skin Skin exam: Present: dry, intact Internal Medicine: Result - Labs CBC & Chem 7: 01/01/17 05:15 01/01/17 05:15 Labs: Short CBC 01/01/17 Range/Units 05:15 WBC 9.0 D (4.3-11.1) K/mcL Hgb 13.5 (12.9-16.9) g/dL Hct 41.1 (37.5-50.1) % Plt Count 243 (140-400) K/mcL Neutrophils # 5.9 (1.6-8.9) K/mcL BMP 12/31/16 01/01/17 19:54 05:15 Sodium 137 142 Potassium 3.6 3.6 Chloride 104 106 Carbon Dioxide 25 27 BUN 11 10 Creatinine 0.84 0.75 Glucose 254 H 148 H Calcium 8.5 L 9.2 Cardiac Enzymes 01/01/17 Range/Units 05:15 Troponin I 0.01 (0-0.03) ng/mL - ABG Interpretation ABG results: PT/INR, D-dimer PT 11.6 Seconds (9.4-12.1) 12/27/16 13:34 - Impressions Impressions Chest X-Ray 01/01/17 13:17 IMPRESSION: No acute process. D/ / Kei Ontiveros MD / Kei Ontiveros MD Interpreting Provider: Kei Ontiveros MD - VTE Documentation of Mechanical Device: Graduated compression elastic hosiery Consult Discharge Plan - Plan Referrals: Jose Don MD [Primary Care Provider] - Jeanie Ellis CNP [Advanced Practice Nurse] - 01/08/17 10:00 am
[2017-01-01] MEDS ORDERED: Cyanocobalamin (B-12) 1,000 MCG/ML VIAL IM ONE (16:05)
[2017-01-01] MEDS: Folic Acid 1 MG TABLET PO SCH (16:30)
[2017-01-01] MEDS: 0.9 % Sodium Chloride 1,000 ML IVC SCH ×2 (16:30→23:47)
[2017-01-01] MEDS: Magnesium Oxide 400 MG TABLET PO SCH (22:17)
[2017-01-01] MEDS: Mirtazapine 15 MG TABLET PO SCH (22:18)
[2017-01-01] MEDS: Acetaminophen 325 MG TABLET PO PRN (23:59)
[2017-01-02] MEDS: Ipratropium/Albuterol Neb 3 ML IH SCH ×4 (05:57→22:00)
[2017-01-02] MEDS: *HR* Heparin 5,000 UNIT/ML VIAL SQ SCH ×2 (06:23→16:56)
[2017-01-02] MEDS: Cyanocobalamin (B-12) 1,000 MCG TABLET PO SCH (08:00)
[2017-01-02] MEDS: Acetaminophen 325 MG TABLET PO PRN (08:00)
[2017-01-02] MEDS: Folic Acid 1 MG TABLET PO SCH (08:00)
[2017-01-02] MEDS: Thiamine (B-1) 100 MG TABLET PO SCH (08:01)
[2017-01-02] MEDS: Magnesium Oxide 400 MG TABLET PO SCH ×2 (08:01→21:11)
[2017-01-02] MEDS: Aspirin Enteric Coated 81 MG Tablet PO SCH (08:01)
[2017-01-02] MEDS: 0.9 % Sodium Chloride 1,000 ML IVC SCH ×2 (08:02→21:11)
[2017-01-02] MEDS: Insulin LISPRO 300 UNITS/3 ML VIAL SQ SCH ×4 (08:02→21:25)
[2017-01-02] MEDS: Insulin DETEMIR 100 UNIT/ML X5UNITS SQ SCH ×2 (08:04→21:25)
[2017-01-02] MEDS: Beclomethasone 80mcg MDI IH SCH ×2 (10:40→22:01)
--- NOTE | 2017-01-02 17:07 | Internal Med Progress Note ---
Date of Encounter: 01/02/17 Time of Encounter: 13:00 - Assessment and plan (1) Delirium Current Visit: Yes Status: Acute (2) Physical deconditioning Current Visit: Yes Status: Acute (3) Acute metabolic encephalopathy Current Visit: Yes Status: Acute (4) Generalized weakness Current Visit: Yes Status: Acute (5) COPD (chronic obstructive pulmonary disease) Current Visit: Yes Status: Chronic Qualifiers: COPD type: unspecified COPD Qualified Code(s): J44.9 - Chronic obstructive pulmonary disease, unspecified (6) Hypomagnesemia Current Visit: Yes Status: Acute (7) Vitamin D deficiency Current Visit: Yes Status: Acute (8) Dementia Current Visit: Yes Status: Acute Qualifiers: Dementia type: associated with alcoholism Dementia behavioral disturbance: with behavioral disturbance Qualified Code(s): F03.91 - Unspecified dementia with behavioral disturbance; F10.97 - Alcohol use, unspecified with alcohol- induced persisting dementia - Time Spent With Patient Plan * Upto chair * Ambulate * PT/OT * avoid benzodiazobines * Re consult psychiatry for competency evaluation * Replace electrolytes PRN * Possible Discharge next 24 Hours .unsafe to discharge home today,discussed with social studies teacher case Manger. * Adjust insulin 25 - 35 minutes - Subjective Interval history: patient is more cooperative today. Tolerated his meals. He is alert oriented to time place and person. He stated he is in [facility],today is December,, patient refused to go to rehabilit, he wanted to go home ,had low-grade CD5 twice over the last 24 hours - Constitutional Vitals: Temp Pulse Resp BP Pulse Ox 98.2 F 84 18 148/67 92 L 01/02/17 15:33 01/02/17 15:33 01/02/17 16:10 01/02/17 15:33 01/02/17 16:10 General appearance: Present: A&O X 2 (short term memory issues), no acute distress - Head Head exam: Present: atraumatic, normocephalic - Neck Neck exam general surgery: Present: supple, trachea midline. Absent: lymphadenopathy - Respiratory Respiratory exam: Present: decreased breath sounds, prolonged expiratory phase, rales (bilateral lung base). Absent: accessory muscle use, rhonchi, wheezes - Cardiovascular Cardiovascular exam: Present: RRR, +S1, +S2. Absent: diastolic murmur, gallop, rubs, systolic murmur - GI/Abdominal GI/Abdominal exam: Present: normal bowel sounds, soft, no peritoneal signs. Absent: distended, tenderness - Extremities Exam Extremities exam: Present: warm, radial pulses palpable and symetrical. Absent : calf tenderness, cyanotic, pedal edema - Neurological Exam Neurological exam: Present: CN II-XII intact, oriented X3, no focal deficits. Absent: pronater drift, facial droop, speech deficit Internal Medicine: Result - Labs CBC & Chem 7: 01/01/17 05:15 01/01/17 05:15 - ABG Interpretation ABG results: PT/INR, D-dimer PT 11.6 Seconds (9.4-12.1) 12/27/16 13:34 - VTE Documentation of Mechanical Device: Graduated compression elastic hosiery Consult Discharge Plan - Plan Referrals: Jose Don MD [Primary Care Provider] - Jeanie Ellis CNP [Advanced Practice Nurse] - 01/08/17 10:00 am
[2017-01-02 17:15] LABS: Bilirubin,Urine Negative (Negative); Blood,Urine Negative (Negative); Color,Urine Dark Yellow (Yellow); Glucose,Urine (UA) 250 mg/dL (Normal); Ketones,Urine Negative (Negative); Leukocyte Esterase,Urine Trace (Negative); Nitrite,Urine Negative (Negative); Protein,Urine Trace mg/dL (Neg-Trace); Specific Gravity,Urine 1.025 (1.010-1.025)
[2017-01-02 17:17] LABS: Bacteria,Urine None Seen per hpf (None-Few); Hyaline Casts,Urine None Seen per lpf (None-Few); Squamous Epithelial Cell,Urine Many per lpf (None-Few)
[2017-01-02 17:22] LABS: Clarity,Urine Slightly Hazy (Clear)
[2017-01-02] MEDS: Haloperidol Lactate 5 MG/ML VIAL IVP PRN (20:52)
[2017-01-02] MEDS ORDERED: Ziprasidone injection 20 MG/ML VIAL IM ONE (21:05)
[2017-01-02] MEDS: Mirtazapine 15 MG TABLET PO SCH (21:11)
[2017-01-03] MEDS: Haloperidol Lactate 5 MG/ML VIAL IVP PRN (03:18)
[2017-01-03] MEDS: Ipratropium/Albuterol Neb 3 ML IH SCH ×2 (04:00→10:37)
--- NOTE | 2017-01-03 06:51 | Electrocardiograph Report ---
[place] [id number] Test Date: 2017-01-01 Pat Name: Shakeel Espinoza Department: 115 Room: 3A Gender: M Spectroscopist: : [id number] Requested By: Melissa Han Order Number: [id number] Reading MD: Donald Scott MD Measurements Intervals [place] Rate: 87 P: 23 [place]: 126 QRS: 58 QRSD: 97 T: 24 QT: 343 QTc: 387 Interpretive Statements SINUS RHYTHM BASELINE ARTIFACT Electronically Signed On 01-03-2017 6:50:13 EST by Donald Scott MD
[2017-01-03] MEDS: *HR* Heparin 5,000 UNIT/ML VIAL SQ SCH (07:55)
[2017-01-03] MEDS ORDERED: *HR* Metformin 850 MG TABLET PO SCH (08:00)
[2017-01-03] MEDS: Insulin LISPRO 300 UNITS/3 ML VIAL SQ SCH ×2 (08:09→12:57)
[2017-01-03] MEDS: Thiamine (B-1) 100 MG TABLET PO SCH (09:43)
[2017-01-03] MEDS: Cyanocobalamin (B-12) 1,000 MCG TABLET PO SCH (09:43)
[2017-01-03] MEDS: Aspirin Enteric Coated 81 MG Tablet PO SCH (09:43)
[2017-01-03] MEDS: Magnesium Oxide 400 MG TABLET PO SCH (09:43)
[2017-01-03] MEDS: Folic Acid 1 MG TABLET PO SCH (09:44)
[2017-01-03] MEDS: Insulin DETEMIR 100 UNIT/ML X5UNITS SQ SCH (09:47)
[2017-01-03] MEDS: Beclomethasone 80mcg MDI IH SCH (10:37)
[2017-01-03 13:32] VITALS: BP 136/65
--- NOTE | 2017-01-03 15:27 | Discharge Summary ---
Date of Encounter: 01/03/17 Time of Encounter: 15:08 - Discharge Diagnosis (1) Delirium Priority: Primary Status: Acute (2) Physical deconditioning Priority: Secondary Status: Acute (3) Acute metabolic encephalopathy Priority: Primary Status: Acute (4) Generalized weakness Priority: Primary Status: Acute (5) COPD (chronic obstructive pulmonary disease) Priority: Secondary Status: Chronic Qualifiers: COPD type: unspecified COPD Qualified Code(s): J44.9 - Chronic obstructive pulmonary disease, unspecified (6) Hypomagnesemia Priority: Secondary Status: Acute (7) Vitamin D deficiency Priority: Secondary Status: Acute (8) Dementia Priority: Primary Status: Acute Qualifiers: Dementia type: associated with alcoholism Dementia behavioral disturbance: with behavioral disturbance Qualified Code(s): F03.91 - Unspecified dementia with behavioral disturbance; F10.97 - Alcohol use, unspecified with alcohol- induced persisting dementia - Discharge Medications Prescriptions: Acetaminophen [Tylenol] 650 mg PO Q6HR PRN #60 tablet PRN Reason: Moderate Pain Cyanocobalamin (B-12) [Vitamin B12] 1,000 mcg PO DAILY #90 tablet Docusate [Colace] 100 mg PO BID PRN #60 capsule PRN Reason: Constipation Donepezil [Aricept] 5 mg PO HS #60 tablet Ergocalciferol (VITAMIN D2) [Drisdol (50,000 Unit)] 50,000 unit PO QWEEK #20 capsule Folic Acid 1 mg PO DAILY #90 tablet GlipiZIDE [Glucotrol] 5 mg PO 0800 #30 tablet Insulin LISPRO [HumaLOG] 0 - 10 units SQ TIDAC #3 vial Magnesium Oxide [Mag-Ox] 400 mg PO BID #60 tablet Mirtazapine [Remeron] 7.5 mg PO HS #30 tablet Omeprazole [PriLOSEC] 20 mg PO DAILY@0630 #30 capsule.dr RisperiDONE [RisperDAL] 0.25 mg PO HS #60 tablet Tamsulosin [Flomax] 0.4 mg PO DAILY #90 capsule Thiamine (B-1) [Vitamin B-1] 200 mg PO DAILY #90 tablet Home Medications: Albuterol Sulfate [Proair Respiclick] 90 mcg IH Q4HR PRN 12/27/16 [History] Aspirin [Lo-Dose Aspirin EC] 81 mg PO DAILY 12/27/16 [History] Fluticasone Propionate [Flovent Hfa] 10.6 gm IH TID 12/27/16 [History] Insulin Glargine,Hum.rec.anlog [Lantus Solostar] 10 unit SQ DAILY 12/27/16 [ History] Lisinopril 2.5 mg PO DAILY 12/27/16 [History] Metformin HCl [Fortamet] 500 mg PO DAILY 12/27/16 [History] Simvastatin [Zocor] 20 mg PO HS 12/27/16 [History] Tiotropium [Spiriva] 18 mcg IH DAILY 12/27/16 [History] Acetaminophen [Tylenol] 650 mg PO Q6HR PRN #60 tablet 01/03/17 [Rx] Cyanocobalamin (B-12) [Vitamin B12] 1,000 mcg PO DAILY #90 tablet 01/03/17 [Rx] Docusate [Colace] 100 mg PO BID PRN #60 capsule 01/03/17 [Rx] Donepezil [Aricept] 5 mg PO HS #60 tablet 01/03/17 [Rx] Ergocalciferol (VITAMIN D2) [Drisdol (50,000 Unit)] 50,000 unit PO QWEEK #20 capsule 01/03/17 [Rx] Folic Acid 1 mg PO DAILY #90 tablet 01/03/17 [Rx] GlipiZIDE [Glucotrol] 5 mg PO 0800 #30 tablet 01/03/17 [Rx] Insulin LISPRO [HumaLOG] 0 - 10 units SQ TIDAC #3 vial 01/03/17 [Rx] Magnesium Oxide [Mag-Ox] 400 mg PO BID #60 tablet 01/03/17 [Rx] Mirtazapine [Remeron] 7.5 mg PO HS #30 tablet 01/03/17 [Rx] Omeprazole [PriLOSEC] 20 mg PO DAILY@0630 #30 capsule. 01/03/17 [Rx] RisperiDONE [RisperDAL] 0.25 mg PO HS #60 tablet 01/03/17 [Rx] Tamsulosin [Flomax] 0.4 mg PO DAILY #90 capsule 01/03/17 [Rx] Thiamine (B-1) [Vitamin B-1] 200 mg PO DAILY #90 tablet 01/03/17 [Rx] Allergies/Adverse Reactions: Allergies tetanus and diphtheria toxoids [Tetanus&Diphtheria Toxoid] Adverse Reaction ( Verified 10/05/15 22:32) Hives Date of admission: 01/01/17 16:27 Primary care physician: Jose Don MD Discharging clinician: Jus Betancourt - Patient Status Disposition: Home Health Service Condition: Fair Functional capacity at discharge: uses cane/walker Overall status at discharge: patient is progressing back to baseline - Discharge Instructions Instructions: Diabetes Mellitus Type 2 in Adults (DC) Follow Up With: Jose Don MD [Primary Care Provider] - Jeanie Ellis CNP [Advanced Practice Nurse] - 01/08/17 10:00 am - Diet and Activity Activity: increase activity as tolerated Diet: diabetic diet Hospital course: Mr. Espinoza is a 76 year old male with past medical history of dementia, family stated that he had progressive decline lately over last week. On the day of admission patient was unable to get up at all from his chair. EMS. Patient to the hospital, patient was confused, clinically dry, we admitted the patient to the hospital started patient on IV fluids, continue to have close monitoring of patient condition. Patient had multiple episodes of agitation and aggressive behavior during hospitalization. Patient was started on Aricept in addition to SSRIs. Continue IV hydration. Patient had urinary retention relieved with straight catheterization. Discussed with urology team recommended to start Flomax. Follow up as an outpatient. Discussed with family plan. His daughter understands that he needs to follow-up with his urologist as an outpatient. With his deconditioning high-risk of fall. Based on physical therapy recommendations and recommended rehabilitation, last 48 hours had multiple meetings with patient and family. Patient refused to go to rehabilitation, his daughter is stated that she had good social support, she is able to take him home, she will on him to have poor quality of life, she stated that he is more calm and more cooperative at home, with changing environment will make him more aggressive. Risk and benefits explained to patient and family at bedside. Discussed with psychiatry team recommended Risperdal as needed. Small dose of Risperdal at bedtime . Titrate Aricept as an outpatient. Patient is to follow- up with psychiatry and urology as an outpatient. Patient had vitamin D deficiency, he was given vitamin D supplement on discharge. His home health care for agitation of medication monitoring for urinary retention communicating with urology and psychiatry team. - Time Spent with Patient Total time spent providing and/or coordinating discharge services: Greater than 30 minutes - Constitutional Vitals: Temp Pulse Resp BP Pulse Ox 98.4 F 70 16 136/65 93 L 01/03/17 13:28 01/03/17 13:28 01/03/17 13:28 01/03/17 13:28 01/03/17 13:28 General appearance: Present: A&O X 2 (short term memory issues), no acute distress - VTE Documentation of Mechanical Device: Graduated compression elastic hosiery
--- NOTE | 2017-01-03 15:46 | Physician Discharge Referral ---
Home Health/Hosp Referral Info Transfer to: Home Health Provider in Charge Post Discharge: PCP - Diagnosis (1) Delirium Status: Acute (2) Physical deconditioning Status: Acute (3) Acute metabolic encephalopathy Status: Acute (4) Generalized weakness Status: Acute (5) COPD (chronic obstructive pulmonary disease) Status: Chronic (6) Hypomagnesemia Status: Acute (7) Vitamin D deficiency Status: Acute (8) Dementia Status: Acute - Respiratory Orders Smoking Cessation: Smoking cessation has been advised. For more information, call the [place] Tobacco Quit Line at 4-989-EWBY-NOW. - Diet/Nutrition Diet/Nutrition Orders: Regular (diabetic diet) - Activity Activity Orders: Ambulate, Walker - Services Needed Following services are medically necessary services: Nursing, Physical Therapy, Occupational Therapy - Transfer Medications Prescriptions: Acetaminophen [Tylenol] 650 mg PO Q6HR PRN #60 tablet PRN Reason: Moderate Pain Cyanocobalamin (B-12) [Vitamin B12] 1,000 mcg PO DAILY #90 tablet Docusate [Colace] 100 mg PO BID PRN #60 capsule PRN Reason: Constipation Donepezil [Aricept] 5 mg PO HS #60 tablet Ergocalciferol (VITAMIN D2) [Drisdol (50,000 Unit)] 50,000 unit PO QWEEK #20 capsule Folic Acid 1 mg PO DAILY #90 tablet GlipiZIDE [Glucotrol] 5 mg PO 0800 #30 tablet Insulin LISPRO [HumaLOG] 0 - 10 units SQ TIDAC #3 vial Magnesium Oxide [Mag-Ox] 400 mg PO BID #60 tablet Mirtazapine [Remeron] 7.5 mg PO HS #30 tablet Omeprazole [PriLOSEC] 20 mg PO DAILY@0630 #30 capsule. RisperiDONE [RisperDAL] 0.25 mg PO HS #60 tablet Tamsulosin [Flomax] 0.4 mg PO DAILY #90 capsule Thiamine (B-1) [Vitamin B-1] 200 mg PO DAILY #90 tablet Home Medications: Albuterol Sulfate [Proair Respiclick] 90 mcg IH Q4HR PRN 12/27/16 [History] Aspirin [Lo-Dose Aspirin EC] 81 mg PO DAILY 12/27/16 [History] Fluticasone Propionate [Flovent Hfa] 10.6 gm IH TID 12/27/16 [History] Insulin Glargine,Hum.rec.anlog [Lantus Solostar] 10 unit SQ DAILY 12/27/16 [ History] Lisinopril 2.5 mg PO DAILY 12/27/16 [History] Metformin HCl [Fortamet] 500 mg PO DAILY 12/27/16 [History] Simvastatin [Zocor] 20 mg PO HS 12/27/16 [History] Tiotropium [Spiriva] 18 mcg IH DAILY 12/27/16 [History] Acetaminophen [Tylenol] 650 mg PO Q6HR PRN #60 tablet 01/03/17 [Rx] Cyanocobalamin (B-12) [Vitamin B12] 1,000 mcg PO DAILY #90 tablet 01/03/17 [Rx] Docusate [Colace] 100 mg PO BID PRN #60 capsule 01/03/17 [Rx] Donepezil [Aricept] 5 mg PO HS #60 tablet 01/03/17 [Rx] Ergocalciferol (VITAMIN D2) [Drisdol (50,000 Unit)] 50,000 unit PO QWEEK #20 capsule 01/03/17 [Rx] Folic Acid 1 mg PO DAILY #90 tablet 01/03/17 [Rx] GlipiZIDE [Glucotrol] 5 mg PO 0800 #30 tablet 01/03/17 [Rx] Insulin LISPRO [HumaLOG] 0 - 10 units SQ TIDAC #3 vial 01/03/17 [Rx] Magnesium Oxide [Mag-Ox] 400 mg PO BID #60 tablet 01/03/17 [Rx] Mirtazapine [Remeron] 7.5 mg PO HS #30 tablet 01/03/17 [Rx] Omeprazole [PriLOSEC] 20 mg PO DAILY@0630 #30 capsule. 01/03/17 [Rx] RisperiDONE [RisperDAL] 0.25 mg PO HS #60 tablet 01/03/17 [Rx] Tamsulosin [Flomax] 0.4 mg PO DAILY #90 capsule 01/03/17 [Rx] Thiamine (B-1) [Vitamin B-1] 200 mg PO DAILY #90 tablet 01/03/17 [Rx] Allergies/Adverse Reactions: Allergies tetanus and diphtheria toxoids [Tetanus&Diphtheria Toxoid] Adverse Reaction ( Verified 10/05/15 22:32) Hives Certification: Further, I certify that my clinical findings support that this patient is homebound (i.e. absences from home require considerable and taxing effort and are for medical reasons or rastafari services or infrequently or short duration when for other reasons) because: Homebound Reason: Patient requires assistance of a person or device to safely leave home, Altered mental status requiring supervision when leaving home Attestation: My signature below is to certify that this patient is under my care and that I, or nurse practitioner, or a physician's players assistant working with me, has a face-to -face encounter with this patient.
[2017-01-03] MEDS ORDERED: risperiDONE 0.25 MG TABLET PO SCH (21:00)
[2017-01-04] MEDS ORDERED: *HR* GlipiZIDE 5 MG TABLET PO SCH (08:00)
== END 2017-01-03 16:36 | disposition home health service (06) | DRG 71 ==
LOC: 3ANU 13:14 → EMEROO 13:14 → 3ANU 17:59
PROVIDERS: ADMIT Registered Nurse; ATTEND Internal Medicine

== ENCOUNTER 2019-04-16 13:18 | Inpatient (IN) ==
--- NOTE | 2019-04-16 13:39 | Anesthesia Evaluation PreOp ---
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 answers appropriate questions and knows person, place, time) Other Medical History: Diabetes Type II, GERD, Other (gangrene) Anesthesia History: No Prior Anesthetic Complications, Past Anesthesia Alcohol Use: none Drug use: none Medications and Allergies Acetaminophen [Tylenol] 650 mg PO Q6HR PRN tablet 03/24/19 [Rx] Aspirin Enteric Coated [Aspirin EC] 81 mg PO DAILY tablet. 03/24/19 [Rx] Insulin LISPRO [HumaLOG] 0 units SQ HS vial 03/24/19 [Rx] Insulin LISPRO [HumaLOG] 0 units SQ TIDAC vial 03/24/19 [Rx] Miconazole 2% cream [Melyssa Antifungal] 1 appl TP BID tube 03/24/19 [Rx] Mometasone Furoate [Asmanex Hfa] 2 puff IH BIDRESP puff 03/24/19 [Rx] Silvasorb 1 appl TP HS tube 03/24/19 [Rx] Tamsulosin [Flomax] 0.4 mg PO DAILY capsule 03/24/19 [Rx] Tiotropium [Spiriva] 18 mcg IH DAILYR inh 03/24/19 [Rx] risperiDONE [RisperDAL] 0.25 mg PO HS tablet 03/24/19 [Rx] Ascorbic Acid [Vitamin C] 500 mg PO 0630 #30 tablet 04/16/19 [Rx] Cholecalciferol (D-3) [Vitamin D] 2,000 unit PO DAILY #60 tablet 04/16/19 [Rx] Ferrous Sulfate 325 mg PO 0630 #30 tablet 04/16/19 [Rx] Allergy/AdvReac Type Severity Reaction Status Date / Time tetanus and diphtheria AdvReac Hives Verified 04/16/19 14:01 toxoids [Tetanus&Diphtheria Toxoid] - Meds/Allergy Pre-op Review Medications Reviewed: Yes Allergies Reviewed: Yes Beta Blockers on Current Med List: No Anesthesia Results - Labs Laboratory Tests 03/11/19 03/26/19 04/06/19 14:55 04:40 05:20 WBC 9.1 Hgb 11.2 L Hct 34.9 L Plt Count 363 PT 14.9 H INR 1.3 Sodium 137 Potassium 3.5 Chloride 103 Carbon Dioxide 28 BUN 18 Creatinine 0.86 Est GFR (Non-Af Amer) > 60 - Imaging EKG: report reviewed (Sinus tachycardia Probable left atrial enlargement Borderline repolarization abnormality) Additional studies: 03/2019 echocardiogram Impressions: LVEF 65%. Mild left ventricular diastolic dysfunction. Normal right ventricular size and function. No significant valvular dysfunction. Unable to estimate RVSP due to lack of TR jet. Non-diagnostic for valvular vegetations; consider DEANNE if clinically indicated. Anesthesia Exam Vital Signs/O2 Sat/Glucose, Most Recent Temp Pulse Resp BP Pulse Ox 97.5 F L 68 18 140/73 96 04/16/19 13:54 04/16/19 13:54 04/16/19 13:54 04/16/19 13:54 04/16/19 13:54 Blood Glucose* 140 Weight: 90 kg NPO (# of Hours): > 8 hr - HEENT Pupil (Motor): Pupils equal, EOMI Mallampati: III Teeth: Edentulous Oral Opening: Greater than 3 - SEXER LOC: Oriented - Cardiac Rhythm: Regular Murmur: None - Pulmonary Breath Sounds: bilateral Clear Respiratory Effort: Symmetrical Anesthesia Assess/Plan ASA Score: 3 Level of consciousness: Cooperative, Oriented Anesthetic Plan: General (GA if block failure), Regional Nerve Block (supra vs infra vs axillary), MAC Regional Nerve Block Plan: Supraclavicular, Infraclavicular, Axillary Monitoring Plan: Standard Monitors Recovery Plan: PACU
[2019-04-16] MEDS ORDERED: CeFAZolin Syr 2,000MG/20 ML 2,000 MG/20 ML SYRINGE IVPB ONE (13:58)
[2019-04-16] MEDS ORDERED: *HR* Labetalol 20 MG/4 ML SYRINGE IVP PRN (14:36)
[2019-04-16] MEDS ORDERED: *HR* Promethazine 25 MG/ML VIAL IVP PRN (14:36)
[2019-04-16] MEDS ORDERED: Ondansetron 4 MG/2 ML VIAL IVP ONE (14:36)
[2019-04-16] MEDS ORDERED: Albuterol 2.5 MG/3 ML NEBULIZER IH ONE (14:36)
[2019-04-16] MEDS ORDERED: *HR* HYDROmorphone (PF) 1 MG/ML SYRINGE IVP PRN (14:36)
[2019-04-16] MEDS ORDERED: Lidocaine -MPF 2% 2 ML VIAL ONE (15:57)
[2019-04-16] MEDS ORDERED: *HR* FentaNYL (PF) 100 MCG/2 ML VIAL ONE ×2 (15:58→16:04)
[2019-04-16] MEDS: Ringers Solution, Lactated 1,000 ML IVC SCH (16:04)
[2019-04-16] MEDS ORDERED: ROPIVACAINE HCL/PF 0.5% 30 ML VIAL ONE (16:04)
--- NOTE | 2019-04-16 17:49 | History & Physical Report ---
Date of Encounter: 04/16/19 Time of Encounter: 16:00 24 Hour HP Update - Instructions Instructions: If the History and Physical is less than 30 days old and was completed prior to A.M. admission and or procedure and has NOT been updated on calendar day of procedure please complete this update prior to performing procedure. - Update Patient reports changes in Medical Condition: No Changes in examination, assessment, or condition: No Changes in Medication: No Surgery Remains Indicated: Yes Consent for Planned Operative Procedure(s) Verified: Yes - Pre-Operative Checklist Preoperative Checklist Indicated: Yes Prophylactic Antibiotic Ordered: Yes Is VTE Prophylaxis Indicated?: Yes
--- NOTE | 2019-04-16 17:50 | Discharge Summary ---
Outpatient Proc Discharge Plan - Plan Additional Instructions: Do not remove dressings Elevate hand. Do not move fingers Use ice for 1 to 2 hour 3 times a day for the next 2 days. No lifting with the operative hand No sports or gym activities follow-up in 1 week with Natali Bradford PA-C Home Medications: Acetaminophen [Tylenol] 650 mg PO Q6HR PRN tablet 03/24/19 [Rx] Aspirin Enteric Coated [Aspirin EC] 81 mg PO DAILY tablet. 03/24/19 [Rx] Insulin LISPRO [HumaLOG] 0 units SQ HS vial 03/24/19 [Rx] Insulin LISPRO [HumaLOG] 0 units SQ TIDAC vial 03/24/19 [Rx] Miconazole 2% cream [Melyssa Antifungal] 1 appl TP BID tube 03/24/19 [Rx] Mometasone Furoate [Asmanex Hfa] 2 puff IH BIDRESP puff 03/24/19 [Rx] Silvasorb 1 appl TP HS tube 03/24/19 [Rx] Tamsulosin [Flomax] 0.4 mg PO DAILY capsule 03/24/19 [Rx] Tiotropium [Spiriva] 18 mcg IH DAILYR inh 03/24/19 [Rx] risperiDONE [RisperDAL] 0.25 mg PO HS tablet 03/24/19 [Rx] ALPRAZolam [Xanax 0.5 MG Tablet] 0.5 mg PO Q4H PRN 04/16/19 [History] Ascorbic Acid [Vitamin C] 500 mg PO 0630 #30 tablet 04/16/19 [Rx] Cholecalciferol (D-3) [Vitamin D] 2,000 unit PO DAILY #60 tablet 04/16/19 [Rx] Ferrous Sulfate 325 mg PO 0630 #30 tablet 04/16/19 [Rx] Multivitamin [Daily Multiple Vitamin] 1 tab PO DAILY 04/16/19 [History]
--- NOTE | 2019-04-16 18:18 | Anesthesia Procedures ---
Date of Encounter: 04/16/19 Time of Encounter: 18:00 Procedures: Anesthesia - Nerve Block Procedure Date: 04/16/19 Time: 17:50 Surgical Procedure: right hand amputation Checklist: Correct Patient Identifier, Correct procedure, History checked Correct side: Right Monitor Applied: EKG, BP, Pulse Oximetry Supplemental Oxygen via Nasal Cannula (L/min): 2 Sedation: Fentanyl (mcg): 100 Indication: Post Op Analgesia Block Type: Supraclavicular, Other (ICB) Catheter placed: No Sterile Technique: Yes Ultrasound used: Yes Anatomy identified: Yes Visual spread of Local: Yes Blood on Needle Aspiration: No Smooth Injection of Local: Yes Pain with Injection of Local: No Prep: Chlorhexadine Volume (cc): 30 ml Number of Attempts: 1 Complications: None/effective block Vitals: Vital Signs/O2 Sat, Most Current Temp Pulse Resp BP Pulse Ox 97.5 F L 73 15 163/87 94 04/16/19 13:54 04/16/19 17:55 04/16/19 17:55 04/16/19 17:55 04/16/19 17:55
[2019-04-16] MEDS ORDERED: Levofloxacin 500 MG/100 ML 500 MG/100 ML BAG IVPB ONE (19:00)
[2019-04-16] MEDS ORDERED: Propofol 500 MG/50 ML INFUS..BTL ONE (19:12)
--- NOTE | 2019-04-16 20:34 | Internal Med History&Physical ---
<Refugio Ellis S - Last Filed: 04/16/19 21:09> Date of Encounter: 04/16/19 Time of Encounter: 20:53 Internal Medicine - H&P: HPI Chief complaint: right hand OM Admitted From: Long-term Nursing Facility Plans for Post Hospital Care: Transfer Snf Facility History of present illness: Mr. Espinoza is a 79 year old male with a PMH of arthritis, cancer, COPD, coronary artery disease, CVA, dementia, diabetes, GERD, hyperlipidemia, hypertension, osteoporosis, and peripheral artery disease. He was recently here about a month ago after being found down at home. At that time was unable to provide hx and according to the pt's daughter, the pt has IVDU. At that time he was found to have a UTI, JESSIKA, and rhabdomyolysis. Podiatry was consulted due to open wounds on the foot and the pt was found to have open wound to the right 2nd toe with extensive bone involvement with unclear chronicity. He underwent surgery with podiatry. Orthopedics was consulted as well and he had a blister drained twice on his right hand. He was found to have gangrene of his right hand with X-ray showing diffuse soft tissue edema but no acute bony abnormalities. Vascular studies 03/14 showed -WBI index appears to be within normal range. Critical/absent flow noted on the right 3rd digit. Orthopedics with recommendations for continued observation to allow long finger gangrene to fully demarcates before surgical intervention. Blood cultures on 03/11/19 was positive for MSSA. TTE was negative for vegetations and DEANNE was declined by the patient. He was discharged to a swing bed and no family ever picked him up. It was arranged for him to come back to [facility] for SDS and on 04/16 underwent amputation of the right hand. He is a dmitted for observation overnight. Past Med Surg Social Fam HX - Past Medical History Medical history: arthritis, cancer, COPD, coronary artery disease, CVA, dementia, diabetes, GERD, hyperlipidemia, hypertension, osteoporosis, peripheral artery disease, other Psychiatric history: no psych history - Past Surgical History Surgical History: cancer surgery, cataract, other - Social History Smoking Status: Former smoker Smokeless Tobacco Status: No Alcohol use: none Drug use: none - Family History Mother Living Status: Father History Unknown: Yes (unable to obtain due to mental status) Internal Medicine - H&P: Meds Acetaminophen [Tylenol] 650 mg PO Q6HR PRN tablet 03/24/19 [Rx] Aspirin Enteric Coated [Aspirin EC] 81 mg PO DAILY tablet. 03/24/19 [Rx] Insulin LISPRO [HumaLOG] 0 units SQ HS vial 03/24/19 [Rx] Insulin LISPRO [HumaLOG] 0 units SQ TIDAC vial 03/24/19 [Rx] Miconazole 2% cream [Melyssa Antifungal] 1 appl TP BID tube 03/24/19 [Rx] Mometasone Furoate [Asmanex Hfa] 2 puff IH BIDRESP puff 03/24/19 [Rx] Silvasorb 1 appl TP HS tube 03/24/19 [Rx] Tamsulosin [Flomax] 0.4 mg PO DAILY capsule 03/24/19 [Rx] Tiotropium [Spiriva] 18 mcg IH DAILYR inh 03/24/19 [Rx] risperiDONE [RisperDAL] 0.25 mg PO HS tablet 03/24/19 [Rx] ALPRAZolam [Xanax 0.5 MG Tablet] 0.5 mg PO Q4H PRN 04/16/19 [History] Ascorbic Acid [Vitamin C] 500 mg PO 0630 #30 tablet 04/16/19 [Rx] Cholecalciferol (D-3) [Vitamin D] 2,000 unit PO DAILY #60 tablet 04/16/19 [Rx] Ferrous Sulfate 325 mg PO 0630 #30 tablet 04/16/19 [Rx] Multivitamin [Daily Multiple Vitamin] 1 tab PO DAILY 04/16/19 [History] Allergy/AdvReac Type Severity Reaction Status Date / Time Penicillins [PCN] Allergy Hives Verified 04/16/19 16:06 tetanus and diphtheria AdvReac Hives Verified 04/16/19 14:01 toxoids [Tetanus&Diphtheria Toxoid] ROS unobtainable: due to mental status All Systems PM: A 10-system review of systems was performed and is negative for pertinent findings except as documented above in the HPI. - Constitutional Vitals: Temp Pulse Resp BP Pulse Ox 97.4 F L 62 16 137/72 94 04/16/19 19:18 04/16/19 20:18 04/16/19 20:18 04/16/19 20:18 04/16/19 20:18 Exam: general - oriented only to self, NAD, laying in bed quietly heent - ncat, dry MM chest - two black wounds a few cm in size cardio - rrr,s1s2,cta no mrg lungs - ctab, not in respiratory distress, no wheeze/rhonchi/rales abd - soft, ntnd, no peritoneal signs, no rebound or guarding extremities - moves all extremities equally right hand wrapped in gauze from sx black wound on the left hand skin - aside from wounds, warm and dry neuro - unable to assess due to mental status psych - unable to assess due to mental status - Assessment and Plan (1) Gangrene of finger of right hand Current Visit: Yes Status: Acute Assessment and plan: Pt presenting from swing bed for amputation of the right hand, he underwent sx with Dr Bernal - POD#0 s/p right hand amputation - pt was recently discharged to swing bed after osteomyelitis of the hand Was (+) for MSSA bactermeia blood cx on 03/11/19 (+) for MSSA and psychrobacter blood cx on 03/13/19 (-) x2 ECHO was negative for valvular vegetation and pt declined DEANNE at that time Displays no stigmata of IE on exam at this time, no splinter hemorrhages/lucas spots Pt is also afebrile, no murmurs auscultated Completed cefazolin until 04/10 and levaquin until 03/27 Surgical bx on 03/13/19 (+) for s aureus pansensitive and serratia marcescencs Surgical pathology report 03/15: bone with acute osteomyelitis and cutaneous ulcer CT scan on 03/16: Subcutaneous edema and soft tissue edema along the dorsal aspect of the hand and wrist may represent cellulitis. Pt underwent multiple procedures during last hospital stay 03/16: palmar blister right hand decompressed 03/19: palmar blister on the right hand decompressed again 03/13: right foot digit amputation 03/24: left foot noted to have diffuse ischemia digits 4-5 Plan: - wound care consulted - orthopedics consulted pt to f/u with PA in 1 week SDS instructions: Do not remove dressings Elevate hand. Do not move fingers Use ice for 1 to 2 hour 3 times a day for the next 2 days. No lifting with the operative hand No sports or gym activities - STAT labs pending - morning labs CBC/BMP - pain control with acetaminophen and oxcodone SL prn - anaerobic culture pending - wound cx pending - surgical pathology pending - FEN: cardiac/ada diet - dvt prophylaxis: scd - dispo: SW consulted, PTOT consulted, unsure of where pt to be discharged to at this time pt to f/u in 1 wk with orthopedics (2) Multiple wounds Current Visit: Yes Status: Acute Assessment and plan: Multiple wounds noted on the chest, buttocks, left hand. Wound care consulted. (3) Generalized weakness Current Visit: Yes Status: Acute Assessment and plan: PTOT consulted. (4) Diabetes Current Visit: No Status: Chronic Assessment and plan: T2DM. Accuchecks. ADA/cardiac diet. LDSS. Qualifiers: Diabetes mellitus type: type 2 Diabetes mellitus residential insulin use: without terminal system operator use Diabetes mellitus complication status: with hyperglycemia Qualified Code(s): E11.65 - Type 2 diabetes mellitus with hyperglycemia (5) COPD (chronic obstructive pulmonary disease) Current Visit: No Status: Chronic Assessment and plan: NOT in acute exacerbation. Continue nebs as needed. Qualifiers: COPD type: unspecified COPD Qualified Code(s): J44.9 - Chronic obstructive pulmonary disease, unspecified (6) Essential hypertension Current Visit: No Status: Chronic Assessment and plan: No home meds listed. Elevated BP readings. Will monitor and add lopressor prn if needed. (7) Anemia Current Visit: No Status: Acute Assessment and plan: Baseline anemia around 11. Awaiting repeat labs. Has borderline normal MCV. Likely anemia of chronic disease. Qualifiers: Anemia type: unspecified type Qualified Code(s): D64.9 - Anemia, unspecified (8) DVT prophylaxis Current Visit: Yes Status: Acute Assessment and plan: scd (9) CAD (coronary artery disease) Current Visit: No Status: Chronic Assessment and plan: Chronic. Continue home meds. Cardiac diet. Qualifiers: Coronary Disease-Associated Artery/Lesion type: [place] artery [place] vs. transplanted heart: [place] heart Associated angina: angina presence unspeci fied Qualified Code(s): I25.10 - Atherosclerotic heart disease of [place] coronary artery without angina pectoris (10) Acute encephalopathy Current Visit: Yes Status: Acute Assessment and plan: Pt likely around his baseline versus infxn versus anesthesia effects. Oriented to self only, not to time or place. He is unsure of how he got here or why he is here. SW consulted. PTOT consulted. Re-orientation if needed. - Time Spent With Patient Total time spent is greater than 50% in coordination of care (as documented) at patient's floor/unit and/or counseling patient: 25 - 35 minutes <Irina Hair - Last Filed: 04/16/19 22:51> Date of Encounter: 04/16/19 All Systems PM: A 10-system review of systems was performed and is negative for pertinent findings except as documented above in the HPI. - Constitutional Vitals: Temp Pulse Resp BP Pulse Ox 97.4 F L 62 16 137/72 94 04/16/19 19:18 04/16/19 20:18 04/16/19 20:18 04/16/19 20:18 04/16/19 20:18 Internal Med - H&P Results - Labs CBC & Chem 7: 04/16/19 20:49 04/16/19 20:49 Labs: Short CBC 04/16/19 Range/Units 20:49 WBC 9.2 (4.3-11.1) K/mcL Hgb 11.2 L (12.9-16.9) g/dL Hct 36.0 L (37.5-50.1) % Plt Count 295 (140-400) K/mcL BMP 04/16/19 20:49 Sodium 137 Potassium 3.6 Chloride 103 Carbon Dioxide 28 BUN 11 Creatinine 0.64 L Glucose 156 H Calcium 8.8 Liver Function 04/16/19 Range/Units 20:49 Total Bilirubin 0.3 (0.3-1.0) mg/dL AST 13 (13-39) Units/L ALT 7 (7-52) Units/L Alkaline Phosphatase 71 (34-104) Units/L Albumin 3.0 L (3.5-5.7) g/dL - Time Spent With Patient Total time spent is greater than 50% in coordination of care (as documented) at patient's floor/unit and/or counseling patient: - Attending Attestation I performed a history and physical exam of the patient and discussed management with the resident. I reviewed the resident's note and agree with the documented findings and plan of care. Patient admitted after same day surgery for placement reasons after a prolonged hospitalization at [facility]. Was to be sent home with home care however family members were not available to receive him. unit control worker consult placed. Will perform routine labs to ensure his homeostasis is adequate. MICHELLE LOZOYA.
[2019-04-16] MEDS ORDERED: Naloxone 0.4 MG/ML INJ IVP PRN (20:49)
[2019-04-16] MEDS ORDERED: Ondansetron 4 MG/2 ML VIAL IVP PRN (20:49)
[2019-04-16] MEDS ORDERED: Acetaminophen 325 MG TABLET PO PRN (20:52)
[2019-04-16] MEDS ORDERED: D5% in Water 1,000 ML IVC PRN (20:54)
[2019-04-16] MEDS ORDERED: Dextrose Gel 15 GM/37.5 ML TUBE PO PRN ×2 (20:54)
[2019-04-16] MEDS ORDERED: *HR* Dextrose 50 % in Water (Syg) 50 ML SYRINGE IVP PRN (20:54)
[2019-04-16] MEDS: Insulin LISPRO 300 UNITS/3 ML VIAL SQ SCH (21:42)
[2019-04-16 21:43] LABS: Hemoglobin 11.2 g/dL (12.9-16.9); Mean Corpuscular HGB Conc 31.1 g/dL (31.6-35.5); Mean Corpuscular Hemoglobin 27.2 pg (28.0-33.3); Mean Corpuscular Volume 87.4 fL (83.0-100.0); Platelet Count 295 K/mcL (140-400); Red Blood Count 4.12 M/mcL (4.19-5.50); Red Cell Distribution Width 13.9 % (11.5-14.5); White Blood Count 9.2 K/mcL (4.3-11.1)
--- NOTE | 2019-04-16 21:45 | Anesthesia Evaluation Post Op ---
Date of Encounter: 04/16/19 Time of Encounter: 20:18 - Vital Signs Vital Signs: Last Vital Signs Temp 97.4 F L 04/16/19 19:18 Pulse 62 04/16/19 20:18 Resp 16 04/16/19 20:18 BP 137/72 04/16/19 20:18 Pulse Ox 94 04/16/19 20:18 - Lungs Lungs: Clear Ascult./Percussion - Airway Airway: Non-obstructed - Cardiovascular Baseline Rhythm - Mental Status Mental Status: Alert & Oriented, Answers Appropriately - Pain Pain Scale: 1 - Nausea Vomiting Nausea Vomiting: Not Present - Hydration Hydration: Tolerates oral liquids - Discharge PostOp Status: Transfer Patient to floor
[2019-04-16] MEDS: 0.9 % Sodium Chloride 1,000 ML IVC SCH (22:03)
[2019-04-16 22:07] LABS: Alanine Aminotransferase 7 Units/L (7-52); Albumin/Globulin Ratio 0.8 (1.1-2.2); Alkaline Phosphatase 71 Units/L (34-104); Aspartate Amino Transferase 13 Units/L (13-39); BUN/Creatinine Ratio 17 (6-26); Bilirubin,Total 0.3 mg/dL (0.3-1.0); Blood Urea Nitrogen 11 mg/dL (8-23); Calcium 8.8 mg/dL (8.6-10.3); Carbon Dioxide 28 mEq/L (23-29); Chloride 103 mEq/L (98-107); Globulin 3.8 g/dL (2.4-3.5); Glucose 156 mg/dL (70-105); Osmolality,Calculated 287 (280-300); Potassium 3.6 mEq/L (3.5-5.1); Sodium 137 mEq/L (136-145); Total Protein 6.8 g/dL (6.4-8.9); eGFR For African Americans > 60 (> 60); eGFR For Non-African Americans > 60 (> 60)
[2019-04-17] MEDS: Insulin LISPRO 300 UNITS/3 ML VIAL SQ SCH ×4 (08:33→20:21)
[2019-04-17] MEDS: 0.9 % Sodium Chloride 1,000 ML IVC SCH ×2 (08:33→20:25)
[2019-04-17] MEDS ORDERED: ALPRAZolam 0.5 MG TABLET PO PRN (13:01)
--- NOTE | 2019-04-17 18:15 | Internal Med Progress Note ---
Hospitalist Progress Note - Encounter Date of Encounter: 04/17/19 Time of Encounter: 12:45 - Subjective Interval History: Mr Espinoza is currently hospitalized post surgery on R hand. He remains moderate risk. Mr Espinoza is eating lunch. He feels OK at this time. No fever or chills. No CP or SOB. No GI issues. - Exam Vitals: Temp Pulse Resp BP Pulse Ox 97.9 F 77 18 149/72 98 04/17/19 16:26 04/17/19 16:26 04/17/19 16:26 04/17/19 16:26 04/17/19 16:26 Exam: General: Alert and oriented. Comfortable at this time. Skin: Normal color, no rash, H: Normocephalic. EENT: EOMI, Mucus membranes moist. Cardiovascular: Normal S1 & S2, Pulse regular. Lungs: Normal breath sounds, no wheezes or crackles. Abdomen: Soft, non-tender, Normal bowel sounds. Extremities: Dressing intact on R hand. Neurological: Normal cognition and motor skills. Pulses: radial pulses normal +2. Rest of the physical exam is non contributory - Assessment and Plan (1) Gangrene of finger of right hand Current Visit: Yes Status: Acute Assessment and Plan: Pt is s/p debridement on 04/16 Cultures pending. Has completed course of abx. (2) Acute metabolic encephalopathy Current Visit: Yes Status: Acute Assessment and Plan: Pt appears to be at baseline at this time. (3) Diabetes Current Visit: No Status: Chronic Assessment and Plan: Blood sugar fair control at this time. Continue monitor and cover. (4) CAD (coronary artery disease) Current Visit: No Status: Chronic Assessment and Plan: Chronic issue. (5) Essential hypertension Current Visit: No Status: Chronic Assessment and Plan: Essentially controlled at this time. - Time Spent with Patient Total time spent is greater than 50% in coordination of care (as documented) at patient's floor/unit and/or counseling patient: Internal Medicine: Result - Labs CBC & Chem 7: 04/16/19 20:49 04/16/19 20:49 Labs: Short CBC 04/16/19 Range/Units 20:49 WBC 9.2 (4.3-11.1) K/mcL Hgb 11.2 L (12.9-16.9) g/dL Hct 36.0 L (37.5-50.1) % Plt Count 295 (140-400) K/mcL BMP 04/16/19 20:49 Sodium 137 Potassium 3.6 Chloride 103 Carbon Dioxide 28 BUN 11 Creatinine 0.64 L Glucose 156 H Calcium 8.8 Liver Function 04/16/19 Range/Units 20:49 Total Bilirubin 0.3 (0.3-1.0) mg/dL AST 13 (13-39) Units/L ALT 7 (7-52) Units/L Alkaline Phosphatase 71 (34-104) Units/L Albumin 3.0 L (3.5-5.7) g/dL Consult Discharge Plan - Plan Additional Instructions: Do not remove dressings Elevate hand. Do not move fingers Use ice for 1 to 2 hour 3 times a day for the next 2 days. No lifting with the operative hand No sports or gym activities follow-up in 1 week with Natali Bradford PA-C Referrals: Jose Don MD [Primary Care Provider] - (3) Diabetes Qualifiers: Diabetes mellitus type: type 2 Diabetes mellitus group home insulin use: without group home use Diabetes mellitus complication status: with hyperglycemia Qualified Code(s): E11.65 - Type 2 diabetes mellitus with hyperglycemia (4) CAD (coronary artery disease) Qualifiers: Coronary Disease-Associated Artery/Lesion type: [place] artery [place] vs. transplanted heart: [place] heart Associated angina: without angina Qualified Code(s): I25.10 - Atherosclerotic heart disease of [place] coronary artery without angina pectoris
[2019-04-17] MEDS ORDERED: risperiDONE 0.25 MG TABLET PO ONE (18:30)
[2019-04-17] MEDS: MOMETASONE FUROATE 100 mcg Inhaler IH SCH (19:57)
[2019-04-17] MEDS: Ringers Solution, Lactated 1,000 ML IVC SCH (20:20)
[2019-04-17] MEDS ORDERED: risperiDONE 0.25 MG TABLET PO SCH (21:00)
[2019-04-17] MEDS: Silvasorb 44.4 ML TUBE TP SCH (21:35)
[2019-04-17] MEDS: OXYCODONE Oral CONC 10 MG/0.5 ML ORAL.SYG SL PRN (21:52)
[2019-04-18 03:54] LABS: Hematocrit 31.7 % (37.5-50.1); Mean Corpuscular HGB Conc 31.5 g/dL (31.6-35.5); Mean Corpuscular Hemoglobin 27.5 pg (28.0-33.3); Mean Corpuscular Volume 87.3 fL (83.0-100.0); Mean Platelet Volume 10.7 fL (9.4-12.4); Platelet Count 277 K/mcL (140-400); Red Blood Count 3.63 M/mcL (4.19-5.50); Red Cell Distribution Width 14.1 % (11.5-14.5); White Blood Count 11.4 K/mcL (4.3-11.1)
[2019-04-18 04:15] LABS: BUN/Creatinine Ratio 22 (6-26); Blood Urea Nitrogen 15 mg/dL (8-23); Calcium 8.2 mg/dL (8.6-10.3); Carbon Dioxide 28 mEq/L (23-29); Chloride 105 mEq/L (98-107); Glucose 105 mg/dL (70-105); Magnesium 1.7 mg/dL (1.6-2.6); Osmolality,Calculated 285 (280-300); Potassium 3.4 mEq/L (3.5-5.1); Sodium 137 mEq/L (136-145); eGFR For African Americans > 60 (> 60); eGFR For Non-African Americans > 60 (> 60)
[2019-04-18] MEDS: 0.9 % Sodium Chloride 1,000 ML IVC SCH ×2 (06:16→15:07)
[2019-04-18] MEDS: Ascorbic Acid 500 MG TABLET PO SCH (06:20)
[2019-04-18] MEDS: Insulin LISPRO 300 UNITS/3 ML VIAL SQ SCH ×4 (08:15→21:45)
[2019-04-18] MEDS: MOMETASONE FUROATE 100 mcg Inhaler IH SCH ×2 (11:06→19:53)
[2019-04-18] MEDS: Tiotropium 18 MCG inhalation IH SCH (11:07)
[2019-04-18] MEDS: Ringers Solution, Lactated 1,000 ML IVC SCH (13:56)
--- NOTE | 2019-04-18 15:16 | Internal Med Progress Note ---
Hospitalist Progress Note - Encounter Date of Encounter: 04/18/19 Time of Encounter: 11:45 - Subjective Interval History: Mr Espinoza is currently admitted for gangrene of his hand. She remains moderate to high risk due to potential for worsening clinical status. Mr Espinoza was agitated last night and additional meds were given. He is resting now. No fever or chills. No CP. No other issues. - Exam Vitals: Temp Pulse Resp BP Pulse Ox 98.4 F 56 16 134/79 93 04/18/19 11:01 04/18/19 11:01 04/18/19 11:06 04/18/19 11:04/18/19 11:06 Exam: General: Alert and oriented. Comfortable at this time. Skin: Normal color, no rash, H: Normocephalic. EENT: EOMI, Mucus membranes moist. Cardiovascular: Normal S1 & S2, Regular and not tachycardic Lungs: Normal breath sounds, Clear bilaterally Abdomen: Soft, non-tender, Normal bowel sounds. Extremities: Dressing intact on R hand. Neurological: Alert. Moves all extremities Pulses: radial pulses normal +2. Rest of the physical exam is non contributory - Assessment and Plan (1) Gangrene of finger of right hand Current Visit: Yes Status: Acute Assessment and Plan: Pt is s/p debridement on 04/16 Cultures pending. Completed course of abx prior to admission PT/OT rec SNF - awaiting social work on Friday. (2) Acute metabolic encephalopathy Current Visit: Yes Status: Acute Assessment and Plan: Pt appears to have issues with delirium at night. Was disagreeable with care this AM. Risperdal increased to BID (3) Diabetes Current Visit: No Status: Chronic Assessment and Plan: Blood sugar controlled at this time. (4) CAD (coronary artery disease) Current Visit: No Status: Chronic Assessment and Plan: Chronic issue. (5) Essential hypertension Current Visit: No Status: Chronic Assessment and Plan: Essentially controlled at this time. - Time Spent with Patient Total time spent is greater than 50% in coordination of care (as documented) at patient's floor/unit and/or counseling patient: Internal Medicine: Result - Labs CBC & Chem 7: 04/18/19 03:40 04/18/19 03:40 Labs: Short CBC 04/18/19 Range/Units 03:40 WBC 11.4 H (4.3-11.1) K/mcL Hgb 10.0 L (12.9-16.9) g/dL Hct 31.7 L (37.5-50.1) % Plt Count 277 (140-400) K/mcL [facility] 04/18/19 03:40 Sodium 137 Potassium 3.4 L Chloride 105 Carbon Dioxide 28 BUN 15 Creatinine 0.68 L Glucose 105 Calcium 8.2 L Consult Discharge Plan - Plan Additional Instructions: Do not remove dressings Elevate hand. Do not move fingers Use ice for 1 to 2 hour 3 times a day for the next 2 days. No lifting with the operative hand No sports or gym activities follow-up in 1 week with Natali Bradford PA-C Referrals: Jose Don MD [Primary Care Provider] - (3) Diabetes Qualifiers: Diabetes mellitus type: type 2 Diabetes mellitus nursing home insulin use: without buttermaker continuous churn use Diabetes mellitus complication status: with hyperglycemia Qualified Code(s): E11.65 - Type 2 diabetes mellitus with hyperglycemia (4) CAD (coronary artery disease) Qualifiers: Coronary Disease-Associated Artery/Lesion type: [place] artery [place] vs. transplanted heart: [place] heart Associated angina: without angina Qualified Code(s): I25.10 - Atherosclerotic heart disease of [place] coronary artery without angina pectoris
[2019-04-18] MEDS: risperiDONE 0.25 MG TABLET PO SCH (21:43)
[2019-04-18] MEDS: Silvasorb 44.4 ML TUBE TP SCH (21:45)
[2019-04-19] MEDS: 0.9 % Sodium Chloride 1,000 ML IVC SCH ×3 (02:00→22:58)
[2019-04-19] MEDS ORDERED: Haloperidol Lactate 5 MG/ML VIAL ONE (03:21)
[2019-04-19] MEDS ORDERED: diazePAM 10 MG/2 ML SYRINGE IVP STA (03:22)
[2019-04-19] MEDS ORDERED: diazePAM 10 MG/2 ML SYRINGE ONE (03:23)
--- NOTE | 2019-04-19 03:41 | Event Note ---
Date of Encounter: 04/19/19 Time of Encounter: 03:16 Alerted by pts. nurse LORRAINE Beard to come to the pts. room immediately as he was becoming violent, hitting, kicking, and attempting to scratch staff with his long nails. Went to see the pt. immediately who was attempting to get out of bed, cursing at the nurses, and kicked the MONOTYPIST. Order for 4-point soft restraints placed. I attempted to order 2 mg IVP Haldol, however the pt. received his Risperdal this evening and Haldol is contraindicated d/t risk for QT prolongation and other cardiac events. 2.5 mg IVP Valium ordered instead and administered. Sitter ordered. Pt. continued to curse at nurses and myself. Pt. had small skin tear on the left hand that was bleeding. The site was cleaned and a Band-Aid placed. Pt. was attempting to scratch the nurses while it was being attended to. Nurse instructed to follow restraint protocol, continue monitoring this pt. very closely for signs of increasing agitation/aggression, or other adverse events and notify me immediately.
[2019-04-19] MEDS: Ascorbic Acid 500 MG TABLET PO SCH (06:00)
[2019-04-19] MEDS: risperiDONE 0.25 MG TABLET PO SCH ×2 (08:10→21:15)
[2019-04-19] MEDS: Insulin LISPRO 300 UNITS/3 ML VIAL SQ SCH ×4 (08:10→21:19)
[2019-04-19] MEDS: OXYCODONE Oral CONC 10 MG/0.5 ML ORAL.SYG SL PRN (08:15)
[2019-04-19] MEDS: MOMETASONE FUROATE 100 mcg Inhaler IH SCH ×2 (09:43→19:45)
[2019-04-19] MEDS: Tiotropium 18 MCG inhalation IH SCH (09:43)
[2019-04-19] MEDS: Ringers Solution, Lactated 1,000 ML IVC SCH (12:12)
[2019-04-19 12:20] LABS: BUN/Creatinine Ratio 23 (6-26); Blood Urea Nitrogen 14 mg/dL (8-23); Calcium 8.9 mg/dL (8.6-10.3); Carbon Dioxide 30 mEq/L (23-29); Chloride 103 mEq/L (98-107); Glucose 102 mg/dL (70-105); Osmolality,Calculated 293 (280-300); Potassium 3.1 mEq/L (3.5-5.1); Sodium 141 mEq/L (136-145); eGFR For African Americans > 60 (> 60); eGFR For Non-African Americans > 60 (> 60)
[2019-04-19 12:31] LABS: Hematocrit 39.4 % (37.5-50.1); Mean Corpuscular HGB Conc 30.7 g/dL (31.6-35.5); Mean Corpuscular Hemoglobin 26.8 pg (28.0-33.3); Mean Corpuscular Volume 87.4 fL (83.0-100.0); Mean Platelet Volume 10.2 fL (9.4-12.4); Platelet Count 305 K/mcL (140-400); Red Blood Count 4.51 M/mcL (4.19-5.50); Red Cell Distribution Width 14.2 % (11.5-14.5); White Blood Count 11.7 K/mcL (4.3-11.1)
[2019-04-19 12:32] LABS: Hemoglobin 12.1 g/dL (12.9-16.9)
--- NOTE | 2019-04-19 14:32 | Orthopedics Progress Note ---
Date of Encounter: 04/19/19 Time of Encounter: 14:00 - Assessment and Plan (1) Status post surgical amputation of finger of left hand Current Visit: Yes Status: Acute Dressings removed today due to being saturated. Begin daily dressing changes with xeroform, dry gauze and kerlix. Cleanse hand daily with each change. Wound care is also on board and appreciate any recommendations they offer for the hand as well. Continue to elevate hand and ice as needed. No lifting with the operative hand Will follow-up in 1 week with Natali Bradford PA-C in [facility] office. (2) Gangrene of finger of right hand Current Visit: Yes Status: Acute Subjective Principal diagnosis: s/p right LF and RF amputation, wound debridement 04/16/19 Interval history: Patient states he does have pain in the hand but not significantly worse com pared to before surgery. Unable to articulate any other descriptions of pain or other symptoms related to the hand. Nursing states he did have a change in mental status and was combative overnight requiring 4point restraints and medication to calm him down. Objective Vital signs: Vital Signs Temp Pulse Resp BP Pulse Ox 04/19/19 09:43 22 99 04/19/19 03:33 97.7 F 102 24 136/63 100 04/19/19 03:09 97.7 F 102 24 136/63 100 04/19/19 00:17 97.7 F 68 16 164/78 95 04/18/19 21:38 97.8 F 72 18 167/82 96 04/18/19 19:55 18 94 04/18/19 15:57 97.8 F 74 16 178/83 97 Intake and Output 04/18/19 04/19/19 04/19/19 23:59 07:59 15:59 Intake Total 480 / 1730 1000 / 1240 240 / 1240 Output Total 0 / 0 Balance 480 / 1730 1000 / 1240 240 / 1240 Intake: IV Fluids 1000 / 1000 0.9 % Sodium Chloride 1,000 ML 1000 / 1000 @ 100 mls/hr IVC .Q10H MIKO Rx#: [id number] Oral 480 / 730 0 / 240 240 / 240 Output: Urine 0 / 0 Other: Meal Breakfast Percent of Meal Consumed 50% # Voids 1 # Urine Diapers 4 1 Weight 88.2 kg Blood Glucose* 119 147 106 Patient Weight 04/19/19 23:59 Weight 88.2 kg Incision: swollen (gauze dressings were saturated on palm side with yellow drainage but no active drainage from any of the wounds. Sutures in place to right long finger and ring finger amputation sites. No erythema, mild swelling. Multiple eschars noted to hand/wrist. ROM restricted to fingers and wrist. pain upon passive extension of small finger.) - Labs CBC & BMP: 04/19/19 12:16 04/19/19 11:37 Labs: Abnormal lab results WBC 11.7 K/mcL (4.3-11.1) H 04/19/19 12:16 RBC 3.63 M/mcL (4.19-5.50) L 04/18/19 03:40 Hgb 12.1 g/dL (12.9-16.9) L D 04/19/19 12:16 Hct 31.7 % (37.5-50.1) L 04/18/19 03:40 MCH 26.8 pg (28.0-33.3) L 04/19/19 12:16 MCHC 30.7 g/dL (31.6-35.5) L 04/19/19 12:16 Potassium 3.1 mEq/L (3.5-5.1) L 04/19/19 11:37 Carbon Dioxide 30 mEq/L (23-29) H 04/19/19 11:37 0.61 mg/dL (0.70-1.30) L 04/19/19 11:37 Glucose 156 mg/dL (70-105) H 04/16/19 20:49 POC Glucose 147 mg/dL (70-99) H 04/19/19 07:36 Calcium 8.2 mg/dL (8.6-10.3) L 04/18/19 03:40 3.0 g/dL (3.5-5.7) L 04/16/19 20:49 3.8 g/dL (2.4-3.5) H 04/16/19 20:49 0.8 (1.1-2.2) L 04/16/19 20:49 Consult Discharge Plan - Plan Additional Instructions: Do not remove dressings Elevate hand. Do not move fingers Use ice for 1 to 2 hour 3 times a day for the next 2 days. No lifting with the operative hand No sports or gym activities follow-up in 1 week with Natali Bradford PA-C Referrals: Jose Don MD [Primary Care Provider] -
--- NOTE | 2019-04-19 19:55 | Internal Med Progress Note ---
Hospitalist Progress Note - Encounter Date of Encounter: 04/19/19 Time of Encounter: 14:00 - Subjective Interval History: Mr Espinoza is currently admitted for gangrene of hand and weakness. He remains moderate risk at this time. Mr Espinoza was agitated last evening. Sitter was added. He has no complaints at this time. - Exam Vitals: Temp Pulse Resp BP Pulse Ox 97.4 F L 68 18 137/65 97 04/19/19 15:47 04/19/19 15:47 04/19/19 19:45 04/19/19 15:47 04/19/19 19:45 Exam: General: Alert and oriented. Comfortable at this time. Eating lunch Skin: Normal color, no rash, H: Normocephalic. EENT: EOMI, Mucus membranes moist. Cardiovascular: Normal S1 & S2, Regular Lungs: Normal breath sounds, Clear bilaterally Abdomen: Soft, non-tender, Normal bowel sounds. Extremities: Dressing intact on R hand. Neurological: Alert. Moves all extremities Pulses: radial pulses normal +2. Rest of the physical exam is non contributory - Assessment and Plan (1) Gangrene of finger of right hand Current Visit: Yes Status: Acute Assessment and Plan: Pt is s/p debridement on 04/16 Cultures pending. Completed course of abx prior to admission PT/OT rec SNF - awaiting social work (2) Acute metabolic encephalopathy Current Visit: Yes Status: Acute Assessment and Plan: Significant increase in agitation at night. Will increase Risperdal dose. (3) Diabetes Current Visit: No Status: Chronic Assessment and Plan: Blood sugar controlled at this time. (4) CAD (coronary artery disease) Current Visit: No Status: Chronic Assessment and Plan: Chronic issue. (5) Essential hypertension Current Visit: No Status: Chronic Assessment and Plan: Essentially controlled at this time. (6) Hypokalemia Current Visit: Yes Status: Acute Assessment and Plan: Persists. Replace today. - Time Spent with Patient Total time spent is greater than 50% in coordination of care (as documented) at patient's floor/unit and/or counseling patient: Internal Medicine: Result - Labs CBC & Chem 7: 04/19/19 12:16 04/19/19 11:37 Labs: Short CBC 04/19/19 Range/Units 12:16 WBC 11.7 H (4.3-11.1) K/mcL Hgb 12.1 L D (12.9-16.9) g/dL Hct 39.4 (37.5-50.1) % Plt Count 305 (140-400) K/mcL [facility] 04/19/19 11:37 Sodium 141 Potassium 3.1 L Chloride 103 Carbon Dioxide 30 H BUN 14 Creatinine 0.61 L Glucose 102 Calcium 8.9 Consult Discharge Plan - Plan Additional Instructions: Do not remove dressings Elevate hand. Do not move fingers Use ice for 1 to 2 hour 3 times a day for the next 2 days. No lifting with the operative hand No sports or gym activities follow-up in 1 week with Natali Bradford PA-C Referrals: Jose Don MD [Primary Care Provider] - (3) Diabetes Qualifiers: Diabetes mellitus type: type 2 Diabetes mellitus salvage determiner insulin use: without halfway use Diabetes mellitus complication status: with hyperglycemia Qualified Code(s): E11.65 - Type 2 diabetes mellitus with hyperglycemia (4) CAD (coronary artery disease) Qualifiers: Coronary Disease-Associated Artery/Lesion type: [place] artery [place] vs. transplanted heart: [place] heart Associated angina: without angina Qualified Code(s): I25.10 - Atherosclerotic heart disease of [place] coronary artery without angina pectoris
--- NOTE | 2019-04-19 21:11 | Operative Note ---
Date of procedure: 04/16/19 Pre-op diagnosis: Left hand gangrene of the long and ring fingers, necrotic full-thickness sk Post-op diagnosis: same (Left hand gangrene of the long and ring fingers. Necrotic full-thickness skin from blisters) Procedure: Left hand amputation of the long finger through the proximal phalanx Left hand amputation of the ring finger through the middle phalanx Left hand debridement of eschars Anesthesia: MAC, regional Surgeon: Zafar Mejias Was there an photo studio assistant present: No Estimated blood loss (cc): 5 Tourniquet Time (Minutes): 11 Specimen: Sent to pathology and microbiology Condition: stable Disposition: PACU Procedure in Detail: The patient received a supraclavicular block in the holding room, was brought into the operating room and placed on the OR table in supine position with the affected extremity on a hand table. A sign in was performed. The patient received MAC, a tourniquet was placed on the left arm close to the axilla. The left upper extremity was prepped and draped in usual sterile fashion. A timeout was performed. The left upper extremity was then elevated, exsanguinated with an Glenn wrap, and the tourniquet was raised pressure of 250 mmHg. The patient's fingers were passively stretched out. The fingers were in a contracted position with the nails of the gangrenous long and ring fingers cutting into the skin of the palm of his hand. The patient did have thick full- thickness eschars on his hand from the blisters. A large one was on the palm of his hand, the dorsum and also ulnar aspect of wrist. A sharp fishmouth incision was made on the long finger, with the proximal end of the incision at the level of the base of P1, and the distal flaps just proximal to the PIP joint. Sharply dissected down to the bone. A bone cutter was then used to cut through the shaft of the proximal phalanx. Cultures were taken of the exposed bone. The amputation was sent off as a pathology specimen. The exposed bone was trimmed back with a rongeur, followed by a rasp. The neurovascular bundles were dissected out, pulled on, cauterized bipolar and cut, allowing them to retract into the soft tissue. The necrosis at the ring fingertip was less involved. A fishmouth incision was made over the middle phalanx. Sharply dissected down to the bone and cut the bone of the middle portion with a bone cutter. The tip was sent off as a pathology specimen. This amputation level was at the base of the middle phalanx, just distal to the insertion of the flexor digitorum superficialis slips. The exposed bone edge was cut back on again with a rongeur, followed by a rasp. The neurovascular bundles were dissected out, pulled on, cauterized with the bipolar and then cut allowing them to retract into the soft tissue. The tourniquet was then let down, irrigating the wound and obtained hemostasis with bipolar cautery. The volar skin flaps were then brought up and closed dorsally with a 5-0 nylon simple sutures, closing the wound, making sure there were no dog-ears, excising as necessary. The tip appeared well perfused. The areas of eschar were then sharply debrided with a scalpel. The very thick portions were left in place. A scalpel was used to thin down the very thick eschar, by taking off thin layers. Xeroform was placed over the eschars. Fluffy sterile dressings were applied, followed by a light Coban dressing. The patient was taken to the recovery room in stable condition.
[2019-04-19] MEDS: Silvasorb 44.4 ML TUBE TP SCH (21:15)
[2019-04-20] MEDS: Ascorbic Acid 500 MG TABLET PO SCH (06:23)
[2019-04-20] MEDS: MOMETASONE FUROATE 100 mcg Inhaler IH SCH ×2 (07:36→22:20)
[2019-04-20] MEDS: Tiotropium 18 MCG inhalation IH SCH (07:37)
[2019-04-20] MEDS: Insulin LISPRO 300 UNITS/3 ML VIAL SQ SCH ×4 (07:48→21:54)
[2019-04-20] MEDS: risperiDONE 0.25 MG TABLET PO SCH ×2 (08:03→21:53)
[2019-04-20 08:31] LABS: Hematocrit 34.9 % (37.5-50.1); Hemoglobin 10.8 g/dL (12.9-16.9); Mean Corpuscular HGB Conc 30.9 g/dL (31.6-35.5); Mean Corpuscular Hemoglobin 26.9 pg (28.0-33.3); Mean Platelet Volume 10.2 fL (9.4-12.4); Platelet Count 318 K/mcL (140-400); Red Blood Count 4.01 M/mcL (4.19-5.50); Red Cell Distribution Width 14.4 % (11.5-14.5)
[2019-04-20 08:54] LABS: BUN/Creatinine Ratio 17 (6-26); Blood Urea Nitrogen 11 mg/dL (8-23); Calcium 8.7 mg/dL (8.6-10.3); Carbon Dioxide 29 mEq/L (23-29); Chloride 106 mEq/L (98-107); Glucose 113 mg/dL (70-105); Osmolality,Calculated 292 (280-300); Potassium 3.3 mEq/L (3.5-5.1); Sodium 141 mEq/L (136-145); eGFR For African Americans > 60 (> 60); eGFR For Non-African Americans > 60 (> 60)
--- NOTE | 2019-04-20 11:22 | Internal Med Progress Note ---
Hospitalist Progress Note - Encounter Date of Encounter: 04/20/19 Time of Encounter: 11:21 - Subjective Interval History: Mr Espinoza is currently admitted following hand surgery. He remains low risk at this time. Mr Espinoza continues to have some agitation at night. Working on discharge plans per . No fever or chills. No other new issues. - Exam Vitals: Temp Pulse Resp BP Pulse Ox 98.0 F 79 18 116/61 94 04/20/19 11:14 04/20/19 11:14 04/20/19 11:14 04/20/19 11:14 04/20/19 11:14 Exam: General: Alert and oriented. Comfortable at this time. Skin: Normal color, no rash, H: Normocephalic. EENT: EOMI, Mucus membranes moist. Cardiovascular: Normal S1 & S2, Not tachycardic Lungs: Normal breath sounds, Clear bilaterally Diminished Abdomen: Soft, non-tender, Normal bowel sounds. Extremities: Dressing intact on R hand. Neurological: Alert. Pulses: radial pulses normal +2. Rest of the physical exam is non contributory - Assessment and Plan (1) Gangrene of finger of right hand Current Visit: Yes Status: Acute Assessment and Plan: Pt is s/p debridement on 04/16 Cultures pending. Culture with yeast - contaminant (2) Acute metabolic encephalopathy Current Visit: Yes Status: Acute Assessment and Plan: Significant increase in agitation at night. Will adjust meds as needed. (3) Diabetes Current Visit: No Status: Chronic Assessment and Plan: Blood sugar controlled at this time. (4) CAD (coronary artery disease) Current Visit: No Status: Chronic Assessment and Plan: Chronic issue. (5) Essential hypertension Current Visit: No Status: Chronic Assessment and Plan: Essentially controlled at this time. (6) Hypokalemia Current Visit: Yes Status: Acute Assessment and Plan: Persists. Replace today. - Time Spent with Patient Total time spent is greater than 50% in coordination of care (as documented) at patient's floor/unit and/or counseling patient: Internal Medicine: Result - Labs CBC & Chem 7: 04/20/19 04:00 04/20/19 04:00 Labs: Short CBC 04/19/19 04/20/19 Range/Units 12:16 04:00 WBC 11.7 H 10.0 (4.3-11.1) K/mcL Hgb 12.1 L D 10.8 L (12.9-16.9) g/dL Hct 39.4 34.9 L (37.5-50.1) % Plt Count 305 318 (140-400) K/mcL [facility] 04/19/19 04/20/19 11:37 04:00 Sodium 141 141 Potassium 3.1 L 3.3 L Chloride 103 106 Carbon Dioxide 30 H 29 BUN 14 11 Creatinine 0.61 L 0.66 L Glucose 102 113 H Calcium 8.9 8.7 Consult Discharge Plan - Plan Additional Instructions: Do not remove dressings Elevate hand. Do not move fingers Use ice for 1 to 2 hour 3 times a day for the next 2 days. No lifting with the operative hand No sports or gym activities follow-up in 1 week with Natali Bradford PA-C Referrals: Jose Don MD [Primary Care Provider] - ____ (3) Diabetes Qualifiers: Diabetes mellitus type: type 2 Diabetes mellitus jail insulin use: without remote computer terminal operator use Diabetes mellitus complication status: with hyperglycemia Qualified Code(s): E11.65 - Type 2 diabetes mellitus with hyperglycemia (4) CAD (coronary artery disease) Qualifiers: Coronary Disease-Associated Artery/Lesion type: [place] artery [place] vs. transplanted heart: [place] heart Associated angina: without angina Qualified Code(s): I25.10 - Atherosclerotic heart disease of [place] coronary artery without angina pectoris
--- NOTE | 2019-04-20 13:07 | Orthopedics Progress Note ---
Date of Encounter: 04/20/19 Time of Encounter: 12:00 - Assessment and Plan (1) Status post surgical amputation of finger of left hand Current Visit: Yes Status: Acute Continue daily dressing changes with xeroform, dry gauze and kerlix. Cleanse hand daily with each change. Wound care is also on board and appreciate any recommendations they offer for the hand as well. Continue to elevate hand and ice as needed. No lifting with the operative hand Preliminary wound cultures show yeast growth. discussed with Dr. Mejias who states culture swabs were taken from the amputation site and he recommends infectious disease being reconsulted on this patient for their input on treatment options. Will continue to monitor while inpatient. Will follow-up in 1 week with Natali Bradford PA-C in [facility] office. (2) Gangrene of finger of right hand Current Visit: Yes Status: Acute Subjective Principal diagnosis: s/p right LF and RF amputation, wound debridement 04/16/19 Interval history: Patient smiled on exam and shook head no when I asked if he had any changes to symptoms or any concerns at this time but did not answer any other questions on exam. Objective Vital signs: Vital Signs Temp Pulse Resp BP Pulse Ox 04/20/19 11:14 98.0 F 79 18 116/61 94 04/20/19 07:37 18 93 04/20/19 07:19 98.8 F 69 18 144/67 93 04/20/19 04:26 97.8 F 73 16 145/88 97 04/20/19 00:21 97.7 F 73 18 167/73 97 04/19/19 19:45 18 97 04/19/19 15:47 97.4 F L 68 16 137/65 95 Intake and Output 04/19/19 04/20/19 04/20/19 23:59 07:59 15:59 Intake Total 50 / 2290 0 / 1000 1000 / 1000 Output Total 0 / 700 700 / 700 Balance 50 / 2290 0 / 300 300 / 300 Intake: IV Fluids 1000 / 1000 0.9 % Sodium Chloride 1,000 ML 1000 / 1000 @ 100 mls/hr IVC .Q10H MIKO Rx#: [id number] Oral 50 / 290 0 / 0 Output: Urine 0 / 700 700 / 700 Other: # Voids 3 # Urine Diapers 1 Weight 85.5 kg Blood Glucose* 117 103 99 Patient Weight 04/20/19 23:59 Weight 85.5 kg Incision: healing (Incisions with sutures intact to amputation sites on right long finger and ring finger with mild swelling, no erythema, no active drainage. continued multiple eschars noted to hand and wrist. ROM of hand and wrist restricted secondary to previous stroke and also contracture to small finger) - Labs CBC & BMP: 04/20/19 04:00 04/20/19 04:00 Labs: Abnormal lab results WBC 11.7 K/mcL (4.3-11.1) H 04/19/19 12:16 RBC 4.01 M/mcL (4.19-5.50) L 04/20/19 04:00 Hgb 10.8 g/dL (12.9-16.9) L 04/20/19 04:00 Hct 34.9 % (37.5-50.1) L 04/20/19 04:00 MCH 26.9 pg (28.0-33.3) L 04/20/19 04:00 MCHC 30.9 g/dL (31.6-35.5) L 04/20/19 04:00 Potassium 3.3 mEq/L (3.5-5.1) L 04/20/19 04:00 Carbon Dioxide 30 mEq/L (23-29) H 04/19/19 11:37 0.66 mg/dL (0.70-1.30) L 04/20/19 04:00 Glucose 113 mg/dL (70-105) H 04/20/19 04:00 POC Glucose 117 mg/dL (70-99) H 04/19/19 16:42 Calcium 8.2 mg/dL (8.6-10.3) L 04/18/19 03:40 3.0 g/dL (3.5-5.7) L 04/16/19 20:49 3.8 g/dL (2.4-3.5) H 04/16/19 20:49 0.8 (1.1-2.2) L 04/16/19 20:49 Consult Discharge Plan - Plan Additional Instructions: Do not remove dressings Elevate hand. Do not move fingers Use ice for 1 to 2 hour 3 times a day for the next 2 days. No lifting with the operative hand No sports or gym activities follow-up in 1 week with Natali Bradford PA-C Referrals: Jose Don MD [Primary Care Provider] -
[2019-04-20] MEDS: 0.9 % Sodium Chloride 1,000 ML IVC SCH ×2 (18:54→21:53)
[2019-04-20] MEDS: Ringers Solution, Lactated 1,000 ML IVC SCH (18:54)
[2019-04-20] MEDS: Silvasorb 44.4 ML TUBE TP SCH (21:52)
[2019-04-21 04:15] LABS: Basophils # 0.1 K/mcL (0.0-0.2); Basophils % 0.6 %; Eosinophils # 0.7 K/mcL (0.0-0.6); Eosinophils % 5.8 %; Hematocrit 37.7 % (37.5-50.1); Hemoglobin 11.8 g/dL (12.9-16.9); Immature Granulocytes % 0.5 % (0-4); Lymphocytes % 17.9 %; Mean Corpuscular HGB Conc 31.3 g/dL (31.6-35.5); Mean Corpuscular Hemoglobin 27.3 pg (28.0-33.3); Mean Corpuscular Volume 87.1 fL (83.0-100.0); Mean Platelet Volume 10.3 fL (9.4-12.4); Monocytes # 1.2 K/mcL (0.0-1.3); Monocytes % 10.7 %; Neutrophils # 7.3 K/mcL (1.6-8.9); Platelet Count 323 K/mcL (140-400); Red Blood Count 4.33 M/mcL (4.19-5.50); Red Cell Distribution Width 14.4 % (11.5-14.5); Segmented Neutrophils % 64.5 %; White Blood Count 11.3 K/mcL (4.3-11.1)
[2019-04-21 04:33] LABS: BUN/Creatinine Ratio 19 (6-26); Blood Urea Nitrogen 11 mg/dL (8-23); Calcium 8.9 mg/dL (8.6-10.3); Carbon Dioxide 31 mEq/L (23-29); Chloride 101 mEq/L (98-107); Glucose 156 mg/dL (70-105); Osmolality,Calculated 291 (280-300); Potassium 3.2 mEq/L (3.5-5.1); Sodium 139 mEq/L (136-145); eGFR For African Americans > 60 (> 60); eGFR For Non-African Americans > 60 (> 60)
[2019-04-21] MEDS: Ascorbic Acid 500 MG TABLET PO SCH (06:04)
[2019-04-21] MEDS: MOMETASONE FUROATE 100 mcg Inhaler IH SCH ×2 (07:48→20:34)
[2019-04-21] MEDS: Tiotropium 18 MCG inhalation IH SCH (07:48)
[2019-04-21] MEDS: 0.9 % Sodium Chloride 1,000 ML IVC SCH ×2 (07:55→22:54)
[2019-04-21] MEDS: Insulin LISPRO 300 UNITS/3 ML VIAL SQ SCH ×4 (07:58→21:01)
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
[2019-04-21] MEDS: risperiDONE 0.25 MG TABLET PO SCH ×2 (10:50→20:59)
--- NOTE | 2019-04-21 12:50 | Discharge Summary ---
Date of Encounter: 04/23/19 Time of Encounter: 12:19 - Discharge Diagnosis (1) Gangrene of finger of right hand Priority: Primary Status: Acute Hospital course: Dear Doctors, I recently had the opportunity to care for this patient during their recent hospital stay at [facility]. (name and PMH). The patient presented at the time of admission with (brief presentation) hospital course Dx: Dry gangrene Pertinent tests/consults: on 04/16 underwent amputation of RIGHT 3rd and 4th fingers and debridement by Ortho Dr Mejias Follow up: PCP, Ortho 1 week Tests pending: none Med changes: none Mental status: awake, fully oriented Code status: Radiology Special Procedure Tech spent on discharge: 35 minutes It has been my pleasure participating in this patient's care. Please contact me with any questions or concerns regarding their hospital stay. Sincerely, Abner Trammell MD - Discharge Medications Prescriptions: Continued Mometasone Furoate [Asmanex Hfa] 2 puff IH BIDRESP puff Aspirin Enteric Coated [Aspirin EC] 81 mg PO DAILY tablet. Miconazole 2% cream [Melyssa Antifungal] 1 appl TP BID tube Tamsulosin [Flomax] 0.4 mg PO DAILY capsule Insulin LISPRO [HumaLOG] 0 units SQ HS vial Insulin LISPRO [HumaLOG] 0 units SQ TIDAC vial risperiDONE [RisperDAL] 0.25 mg PO HS tablet Silvasorb 1 appl TP HS tube Tiotropium [Spiriva] 18 mcg IH DAILYR inh Acetaminophen [Tylenol] 650 mg PO Q6HR PRN tablet PRN Reason: Fever ALPRAZolam [Xanax 0.5 MG Tablet] 0.5 mg PO Q4H PRN PRN Reason: Anxiety Multivitamin [Daily Multiple Vitamin] 1 tab PO DAILY Ferrous Sulfate 325 mg PO 0630 #30 tablet Ascorbic Acid [Vitamin C] 500 mg PO 0630 #30 tablet Cholecalciferol (D-3) [Vitamin D] 2,000 unit PO DAILY #60 tablet Home Medications: Acetaminophen [Tylenol] 650 mg PO Q6HR PRN tablet 03/24/19 [Rx] Aspirin Enteric Coated [Aspirin EC] 81 mg PO DAILY tablet. 03/24/19 [Rx] Insulin LISPRO [HumaLOG] 0 units SQ HS vial 03/24/19 [Rx] Insulin LISPRO [HumaLOG] 0 units SQ TIDAC vial 03/24/19 [Rx] Miconazole 2% cream [Melyssa Antifungal] 1 appl TP BID tube 03/24/19 [Rx] Mometasone Furoate [Asmanex Hfa] 2 puff IH BIDRESP puff 03/24/19 [Rx] Silvasorb 1 appl TP HS tube 03/24/19 [Rx] Tamsulosin [Flomax] 0.4 mg PO DAILY capsule 03/24/19 [Rx] Tiotropium [Spiriva] 18 mcg IH DAILYR inh 03/24/19 [Rx] risperiDONE [RisperDAL] 0.25 mg PO HS tablet 03/24/19 [Rx] ALPRAZolam [Xanax 0.5 MG Tablet] 0.5 mg PO Q4H PRN 04/16/19 [History] Ascorbic Acid [Vitamin C] 500 mg PO 0630 #30 tablet 04/16/19 [Rx] Cholecalciferol (D-3) [Vitamin D] 2,000 unit PO DAILY #60 tablet 04/16/19 [Rx] Ferrous Sulfate 325 mg PO 0630 #30 tablet 04/16/19 [Rx] Multivitamin [Daily Multiple Vitamin] 1 tab PO DAILY 04/16/19 [History] Allergies/Adverse Reactions: Allergy/AdvReac Type Severity Reaction Status Date / Time Penicillins [PCN] Allergy Hives Verified 04/16/19 16:06 tetanus and diphtheria AdvReac Hives Verified 04/16/19 14:01 toxoids [Tetanus&Diphtheria Toxoid] Date of admission: 04/19/19 19:58 Primary care physician: Jose Don MD Consults: 04/16/19 20:50 Consult to Occupational Therapy [CONS] Routine Comment: Evaluate, develop and implement POC Reason for Consult: weakness, sx Does patient have active BEDREST order?: No Is patient medically & hemodynamically stable?: Yes Patient assessed for mobility or mobilized this visit?: No Consult to Physical Therapy [CONS] Routine Comment: Evaluate, develop and implement POC Reason for Consult: ptot consult Does patient have active BEDREST order?: No Is patient medically & hemodynamically stable?: Yes Patient assessed for mobility or mobilized this visit?: No Consult to Project Design Engineer [CONS] Routine Reason for SW Consult: pt not picked up by family from [facility] planning 04/16/19 20:56 Consult to Wound Care [CONS] Routine Reason for Consult: multiple wounds Call Completed: No 04/20/19 13:58 Consult to Infectious Diseases [CONS] Routine Consulting Provider: Infectious Disease Eleni Reason for Consult: Right hand ganagrene Call Completed: No - Constitutional Vitals: Temp Pulse Resp BP Pulse Ox 98.3 F 71 16 118/51 95 04/21/19 11:45 04/21/19 11:45 04/21/19 11:45 04/21/19 11:45 04/21/19 11:45 Exam: General: NAD, good eye contact, chronically ill appearing Thoracic: Normal breath sounds b/l, no wheezing or crackles Cardio: Normal S1 and S2, regular rate and rhythm Abdomen: Soft, nontender Extremities: Warm, well perfused. DP pulses 2+ b/l. No edema. R hand dressing c/d/i. Skin: Intact. No rashes, bruises, or ulcers Neuro: Awake, fully oriented. Speech fluent - Patient Status Disposition: Home Health Service Condition: Fair Functional capacity at discharge: wheelchair bound Overall status at discharge: patient is progressing back to baseline - Discharge Instructions Follow Up With: Jose Don MD [Primary Care Provider] - Additional Instructions: Do not remove dressings Elevate hand. Do not move fingers Use ice for 1 to 2 hour 3 times a day for the next 2 days. No lifting with the operative hand No sports or gym activities follow-up in 1 week with Natali Bradford PA-C - Diet and Activity Activity: resume usual activities as tolerated Diet: diabetic diet, low salt diet
--- NOTE | 2019-04-21 13:33 | Physician Discharge Referral ---
Home Health/Hosp Referral Info Transfer to: Home Health Provider in Charge Post Discharge: PCP - Diagnosis (1) Gangrene of finger of right hand Priority: Primary Status: Acute - Respiratory Orders Smoking Cessation: Smoking cessation has been advised. For more information, call the [place] Tobacco Quit Line at 4-224-FVBD-NOW. - Services Needed Following services are medically necessary services: Nursing, Home Health Aide, Physical Therapy, Occupational Therapy - Transfer Medications Home Medications: Acetaminophen [Tylenol] 650 mg PO Q6HR PRN tablet 03/24/19 [Rx] Aspirin Enteric Coated [Aspirin EC] 81 mg PO DAILY tablet. 03/24/19 [Rx] Insulin LISPRO [HumaLOG] 0 units SQ HS vial 03/24/19 [Rx] Insulin LISPRO [HumaLOG] 0 units SQ TIDAC vial 03/24/19 [Rx] Miconazole 2% cream [Melyssa Antifungal] 1 appl TP BID tube 03/24/19 [Rx] Mometasone Furoate [Asmanex Hfa] 2 puff IH BIDRESP puff 03/24/19 [Rx] Silvasorb 1 appl TP HS tube 03/24/19 [Rx] Tamsulosin [Flomax] 0.4 mg PO DAILY capsule 03/24/19 [Rx] Tiotropium [Spiriva] 18 mcg IH DAILYR inh 03/24/19 [Rx] risperiDONE [RisperDAL] 0.25 mg PO HS tablet 03/24/19 [Rx] ALPRAZolam [Xanax 0.5 MG Tablet] 0.5 mg PO Q4H PRN 04/16/19 [History] Ascorbic Acid [Vitamin C] 500 mg PO 0630 #30 tablet 04/16/19 [Rx] Cholecalciferol (D-3) [Vitamin D] 2,000 unit PO DAILY #60 tablet 04/16/19 [Rx] Ferrous Sulfate 325 mg PO 0630 #30 tablet 04/16/19 [Rx] Multivitamin [Daily Multiple Vitamin] 1 tab PO DAILY 04/16/19 [History] Allergies/Adverse Reactions: Allergy/AdvReac Type Severity Reaction Status Date / Time Penicillins [PCN] Allergy Hives Verified 04/16/19 16:06 tetanus and diphtheria AdvReac Hives Verified 04/16/19 14:01 toxoids [Tetanus&Diphtheria Toxoid] Certification: Further, I certify that my clinical findings support that this patient is homebound (i.e. absences from home require considerable and taxing effort and are for medical reasons or taoist services or infrequently or short duration when for other reasons) because: Homebound Reason: Leaving home requires considerable and taxing effort due to condition Attestation: My signature below is to certify that this patient is under my care and that I, or nurse practitioner, or a physician's placement assistant working with me, has a [id number] encounter with this patient.
[2019-04-21 13:39] LABS: BUN/Creatinine Ratio 17 (6-26); Blood Urea Nitrogen 9 mg/dL (8-23); Calcium 8.5 mg/dL (8.6-10.3); Carbon Dioxide 26 mEq/L (23-29); Chloride 104 mEq/L (98-107); Glucose 193 mg/dL (70-105); Magnesium 1.6 mg/dL (1.6-2.6); Osmolality,Calculated 290 (280-300); Sodium 138 mEq/L (136-145); eGFR For African Americans > 60 (> 60); eGFR For Non-African Americans > 60 (> 60)
[2019-04-21] MEDS: Ringers Solution, Lactated 1,000 ML IVC SCH (16:38)
--- NOTE | 2019-04-21 17:44 | Internal Med Progress Note ---
Hospitalist Progress Note - Encounter Date of Encounter: 04/21/19 Time of Encounter: 17:42 - Subjective Interval History: Pt denies complaints to me, is able to answer basic questions and is quite pleasant. Per RN and SW, pt's POA called stating she was taking patient out of hospital today regardless of if medically ready due to what seemed like financi al concerns, however I did not get a chance to speak with her today. - Exam Vitals: Temp Pulse Resp BP Pulse Ox 98.5 F 78 16 114/64 96 04/21/19 15:20 04/21/19 15:20 04/21/19 15:20 04/21/19 15:20 04/21/19 15:20 Exam: General: NAD, good eye contact, chronically ill appearing Thoracic: Normal breath sounds b/l, no wheezing or crackles Cardio: Normal S1 and S2, regular rate and rhythm Abdomen: Soft, nontender Extremities: Warm, well perfused. DP pulses 2+ b/l. No edema. R hand dressing c/d/i. Missing R 2nd toe. Skin: Intact. No bruises or rashes. Neuro: Awake, fully oriented. Speech fluent - Assessment and Plan (1) Gangrene of finger of right hand Current Visit: Yes Status: Acute Assessment and Plan: Pt is s/p debridement on 04/[address] Mejias. Culture with yeast; likely contaminant and ID consultation agrees with this. Follow up wound care and Ortho. - Summary of Assessment and Plan Summary of Assessment and Plan: Gangrene R 3rd and 4th fingers now s/p amputation: f/u wound and ortho Acute metabolic encephalopathy: occurs at night - precautions PVCs: replace K and Mg as below Hypokalemia: replace and monitor Hypomagnesemia: replace and monitor DM2: controlled, SSI CAD: home meds HTN: controlled, home meds PPx: lovenox FEN: cardiac ADA, no MIVF Lines: PIV Consults: Ortho, ID Code: Full Dispo: patient requires inpatient eval and management at this time. Anticipate 1-2 days. Will be homegoing w Internal Medicine: Result - Labs CBC & Chem 7: 04/21/19 03:50 04/21/19 12:55 Labs: Short CBC 04/21/19 Range/Units 03:50 WBC 11.3 H (4.3-11.1) K/mcL Hgb 11.8 L (12.9-16.9) g/dL Hct 37.7 (37.5-50.1) % Plt Count 323 (140-400) K/mcL Neutrophils # 7.3 (1.6-8.9) K/mcL BMP 04/21/19 04/21/19 03:50 12:55 Sodium 139 138 Potassium 3.2 L 3.0 L Chloride 101 104 Carbon Dioxide 31 H 26 BUN 11 9 Creatinine 0.59 L 0.52 L Glucose 156 H 193 H Calcium 8.9 8.5 L Consult Discharge Plan - Plan Additional Instructions: Do not remove dressings Elevate hand. Do not move fingers Use ice for 1 to 2 hour 3 times a day for the next 2 days. No lifting with the operative hand No sports or gym activities follow-up in 1 week with Natali Bradford PA-C Referrals: Jose Don MD [Primary Care Provider] -
[2019-04-21] MEDS: Silvasorb 44.4 ML TUBE TP SCH (21:00)
[2019-04-22 03:55] LABS: Hematocrit 34.8 % (37.5-50.1); Hemoglobin 10.9 g/dL (12.9-16.9); Mean Corpuscular HGB Conc 31.3 g/dL (31.6-35.5); Mean Corpuscular Hemoglobin 27.7 pg (28.0-33.3); Mean Corpuscular Volume 88.5 fL (83.0-100.0); Platelet Count 295 K/mcL (140-400); Red Blood Count 3.93 M/mcL (4.19-5.50); Red Cell Distribution Width 14.5 % (11.5-14.5); White Blood Count 10.6 K/mcL (4.3-11.1)
[2019-04-22 04:10] LABS: BUN/Creatinine Ratio 14 (6-26); Blood Urea Nitrogen 9 mg/dL (8-23); Calcium 8.4 mg/dL (8.6-10.3); Carbon Dioxide 28 mEq/L (23-29); Chloride 106 mEq/L (98-107); Glucose 178 mg/dL (70-105); Magnesium 2.1 mg/dL (1.6-2.6); Osmolality,Calculated 293 (280-300); Potassium 3.5 mEq/L (3.5-5.1); Sodium 140 mEq/L (136-145); eGFR For African Americans > 60 (> 60); eGFR For Non-African Americans > 60 (> 60)
[2019-04-22] MEDS: Ascorbic Acid 500 MG TABLET PO SCH (06:09)
[2019-04-22] MEDS: *HR* Enoxaparin 40 MG/0.4 ML SYRINGE SQ SCH (06:09)
[2019-04-22] MEDS: MOMETASONE FUROATE 100 mcg Inhaler IH SCH ×2 (08:21→20:31)
[2019-04-22] MEDS: Tiotropium 18 MCG inhalation IH SCH (08:22)
[2019-04-22] MEDS: Insulin LISPRO 300 UNITS/3 ML VIAL SQ SCH ×4 (09:50→20:16)
[2019-04-22] MEDS: risperiDONE 0.25 MG TABLET PO SCH ×2 (10:00→20:12)
[2019-04-22] MEDS: 0.9 % Sodium Chloride 1,000 ML IVC SCH ×2 (10:11→20:14)
--- NOTE | 2019-04-22 11:35 | Orthopedics Progress Note ---
Date of Encounter: 04/22/19 Time of Encounter: 11:00 - Assessment and Plan (1) Status post surgical amputation of finger of left hand Current Visit: Yes Status: Acute Continue daily dressing changes with xeroform, dry gauze and kerlix. Cleanse hand daily with each change. Wound care is also on board and appreciate any recommendations they offer for the hand as well. Continue to elevate hand and ice as needed. No lifting with the operative hand Wound cultures - arturo albicans ID has been consulted and appreciate their recommendations - believes this to be contaminant and no recommendation for antibiotic or antifungals at this time. Per plan now for transition to ECF and daughter is now on board with this plan. Awaiting auth. Will follow-up next week with Natali Bradford PA-C in [facility] office. (2) Gangrene of finger of right hand Current Visit: Yes Status: Acute Subjective Principal diagnosis: s/p right LF and RF amputation, wound debridement 04/16/19 Interval history: Patient pleasant today sitting up in chair today. He states the hand feels ok and has no pain in the right hand. He denies any questions or concerns at this time and no new symptoms. Objective Vital signs: Vital Signs Temp Pulse Resp BP Pulse Ox 04/22/19 10:08 99 14 143/80 04/22/19 04:05 98.1 F 71 15 178/93 98 04/21/19 22:51 98.3 F 66 15 139/61 99 04/21/19 21:00 97 04/21/19 20:34 16 96 04/21/19 19:28 98.6 F 74 15 122/70 97 04/21/19 15:20 98.5 F 78 16 114/64 96 04/21/19 11:45 98.3 F 71 16 118/51 95 Intake and Output 04/21/19 04/22/19 04/22/19 23:59 07:59 15:59 Intake Total 999 / 4 1000 / 1000 Balance 999 / 2583 1000 / 1000 Intake: IV Fluids 999 / 4 1000 / 1000 0.9 % Sodium Chloride 1,000 ML 1000 / 2000 1000 / 1000 @ 100 mls/hr IVC .Q10H MIKO Rx#: [id number] Other: # Voids 2 # Urine Diapers 2 Blood Glucose* 126 174 Incision: healing (Incisions to amputation sites to right ring and long fingers are healing appropriately with sutures intact. no active drainage or erythema, mild swelling. ROM of wrist and fingers restricted chronically. pain upon gentle passive extension of small finger. ) - Labs CBC & BMP: 04/22/19 03:31 04/22/19 03:31 Labs: Abnormal lab results WBC 11.3 K/mcL (4.3-11.1) H 04/21/19 03:50 RBC 3.93 M/mcL (4.19-5.50) L 04/22/19 03:31 Hgb 10.9 g/dL (12.9-16.9) L 04/22/19 03:31 Hct 34.8 % (37.5-50.1) L 04/22/19 03:31 MCH 27.7 pg (28.0-33.3) L 04/22/19 03:31 MCHC 31.3 g/dL (31.6-35.5) L 04/22/19 03:31 0.7 K/mcL (0.0-0.6) H 04/21/19 03:50 Potassium 3.0 mEq/L (3.5-5.1) L 04/21/19 12:55 Carbon Dioxide 31 mEq/L (23-29) H 04/21/19 03:50 0.66 mg/dL (0.70-1.30) L 04/22/19 03:31 Glucose 178 mg/dL (70-105) H 04/22/19 03:31 POC Glucose 199 mg/dL (70-99) H 04/21/19 11:40 Calcium 8.4 mg/dL (8.6-10.3) L 04/22/19 03:31 3.0 g/dL (3.5-5.7) L 04/16/19 20:49 3.8 g/dL (2.4-3.5) H 04/16/19 20:49 0.8 (1.1-2.2) L 04/16/19 20:49 Consult Discharge Plan - Plan Additional Instructions: Do not remove dressings Elevate hand. Do not move fingers Use ice for 1 to 2 hour 3 times a day for the next 2 days. No lifting with the operative hand No sports or gym activities follow-up in 1 week with Natali Bradford PA-C Referrals: Jose Don MD [Primary Care Provider] -
[2019-04-22] MEDS: Ringers Solution, Lactated 1,000 ML IVC SCH (16:04)
--- NOTE | 2019-04-22 16:53 | Internal Med Progress Note ---
Hospitalist Progress Note - Encounter Date of Encounter: 04/22/19 Time of Encounter: 10:05 - Subjective Interval History: Pt denies acute needs. Eating breakfast although says it's not the greatest. Did not sleep well and would like to sleep more today. Denies hand pain at site of surgery. Denies N/V/D, SOB, CP. - Exam Vitals: Temp Pulse Resp BP Pulse Ox 98.5 F 82 17 142/65 95 04/22/19 16:05 04/22/19 16:05 04/22/19 16:05 04/22/19 16:05 04/22/19 16:05 Exam: General: NAD, good eye contact, chronically ill appearing Thoracic: Normal breath sounds b/l, no wheezing or crackles Cardio: Normal S1 and S2, regular rate and rhythm Abdomen: Soft, nontender Extremities: Warm, well perfused. DP pulses 2+ b/l. No edema. R hand dressing c/d/i. Missing R 2nd toe. Skin: Intact. No rashes, bruises, or ulcers Neuro: Awake, fully oriented. Speech fluent - Assessment and Plan (1) Gangrene of finger of right hand Current Visit: Yes Status: Acute - Summary of Assessment and Plan Summary of Assessment and Plan: Gangrene R 3rd and 4th fingers now s/p amputation and debridement on 04/[address] Mejias - f/u wound and ortho - ID consulted, appreciate rec's, no abx or antifungal therapy needed at this time - SW consulted for SNF placement Acute metabolic encephalopathy: occurs at night although improved in last 2 days - precautions PVCs: improved Hypokalemia: replace and monitor Hypomagnesemia: resolved DM2: controlled, SSI CAD: home meds HTN: controlled, home meds PPx: lovenox FEN: cardiac ADA, no MIVF Lines: PIV Consults: Ortho, ID Code: Full Dispo: patient requires inpatient eval and management at this time. Anticipate 1-2 days. now requesting attempt at SNF for skilled/wound care Internal Medicine: Result - Labs CBC & Chem 7: 04/22/19 03:31 04/22/19 03:31 Labs: Short CBC 04/22/19 Range/Units 03:31 WBC 10.6 (4.3-11.1) K/mcL Hgb 10.9 L (12.9-16.9) g/dL Hct 34.8 L (37.5-50.1) % Plt Count 295 (140-400) K/mcL BMP 04/22/19 03:31 Sodium 140 Potassium 3.5 Chloride 106 Carbon Dioxide 28 BUN 9 Creatinine 0.66 L Glucose 178 H Calcium 8.4 L Consult Discharge Plan - Plan Additional Instructions: Do not remove dressings Elevate hand. Do not move fingers Use ice for 1 to 2 hour 3 times a day for the next 2 days. No lifting with the operative hand No sports or gym activities follow-up in 1 week with Natali Bradford PA-C Referrals: Jose Don MD [Primary Care Provider] -
[2019-04-22] MEDS: Silvasorb 44.4 ML TUBE TP SCH (20:12)
[2019-04-23] MEDS: Ascorbic Acid 500 MG TABLET PO SCH (05:07)
[2019-04-23] MEDS: *HR* Enoxaparin 40 MG/0.4 ML SYRINGE SQ SCH (05:07)
[2019-04-23] MEDS: MOMETASONE FUROATE 100 mcg Inhaler IH SCH ×2 (07:57→21:44)
[2019-04-23] MEDS: Tiotropium 18 MCG inhalation IH SCH (07:58)
[2019-04-23] MEDS: Insulin LISPRO 300 UNITS/3 ML VIAL SQ SCH ×4 (09:36→20:54)
[2019-04-23] MEDS: risperiDONE 0.25 MG TABLET PO SCH ×2 (09:40→20:34)
--- NOTE | 2019-04-23 13:41 | Internal Med Progress Note ---
Hospitalist Progress Note - Encounter Date of Encounter: 04/23/19 Time of Encounter: 09:35 - Subjective Interval History: Denies needs or complaints. Patiently awaiting SNF. - Exam Vitals: Temp Pulse Resp BP Pulse Ox 97.4 F L 68 18 136/72 97 04/23/19 11:11 04/23/19 11:11 04/23/19 11:11 04/23/19 11:11 04/23/19 11:11 Exam: General: NAD, good eye contact, chronically ill appearing Thoracic: Normal breath sounds b/l, no wheezing or crackles Cardio: Normal S1 and S2, regular rate and rhythm Abdomen: Soft, nontender Extremities: Warm, well perfused. DP pulses 2+ b/l. No edema. R hand dressing c/d/i. Skin: Intact. No rashes, bruises, or ulcers Neuro: Awake, fully oriented. Speech fluent - Assessment and Plan (1) Gangrene of finger of right hand Current Visit: Yes Status: Acute - Summary of Assessment and Plan Summary of Assessment and Plan: Shakeel Espinoza is a 78 M w hx dementia, CAD, PAD, CVA, HTN, HLD, DM2, COPD, GERD, osteoporosis, who was recently hospitalized after being found down on ground for prolonged period of time with subsequent limb ischemia and reperfusion injury to RUE leading to gangrenous R 3rd and 4th fingers, who presented for scheduled amputation on 04/16. Gangrene R 3rd and 4th fingers now s/p amputation and debridement on 04/[address] Mejias. Intraop cultures growing arturo felt to be contaminant. - f/u wound and ortho - ID consulted, appreciate rec's, no abx or antifungal therapy needed at this time - SW consulted for SNF placement Acute metabolic encephalopathy: resolved, continue precautions PVCs: improved w replacement of K and Mg DM2: controlled, SSI CAD: home meds HTN: controlled, home meds PPx: lovenox FEN: cardiac ADA, no MIVF Lines: PIV Consults: Ortho, ID Code: Full Dispo: patient requires inpatient eval and management at this time. Awaiting SNF for skilled/wound care Internal Medicine: Result - Labs CBC & Chem 7: 04/22/19 03:31 04/22/19 03:31 Consult Discharge Plan - Plan Additional Instructions: Do not remove dressings Elevate hand. Do not move fingers Use ice for 1 to 2 hour 3 times a day for the next 2 days. No lifting with the operative hand No sports or gym activities follow-up in 1 week with Natali Bradford PA-C Referrals: Jose Don MD [Primary Care Provider] -
[2019-04-23] MEDS: Ringers Solution, Lactated 1,000 ML IVC SCH (17:18)
[2019-04-23] MEDS: 0.9 % Sodium Chloride 1,000 ML IVC SCH (20:34)
[2019-04-23] MEDS: Silvasorb 44.4 ML TUBE TP SCH (20:54)
[2019-04-24] MEDS: *HR* Enoxaparin 40 MG/0.4 ML SYRINGE SQ SCH (05:15)
[2019-04-24] MEDS: Ascorbic Acid 500 MG TABLET PO SCH (05:15)
[2019-04-24] MEDS: 0.9 % Sodium Chloride 1,000 ML IVC SCH ×3 (06:57→19:42)
[2019-04-24] MEDS: MOMETASONE FUROATE 100 mcg Inhaler IH SCH ×2 (08:24→22:22)
[2019-04-24] MEDS: Tiotropium 18 MCG inhalation IH SCH (08:26)
[2019-04-24] MEDS: Insulin LISPRO 300 UNITS/3 ML VIAL SQ SCH ×4 (10:18→22:21)
[2019-04-24] MEDS: risperiDONE 0.25 MG TABLET PO SCH ×2 (12:56→22:20)
[2019-04-24] MEDS: Ringers Solution, Lactated 1,000 ML IVC SCH (13:39)
--- NOTE | 2019-04-24 15:49 | Internal Med Progress Note ---
Hospitalist Progress Note - Encounter Date of Encounter: 04/24/19 Time of Encounter: 12:15 - Subjective Interval History: Seen and examined at the bedside Sleeping but rousable Denies new complains states pain is controlled No overnight events - Exam Vitals: Temp Pulse Resp BP Pulse Ox 98.9 F 74 18 145/80 96 04/24/19 15:29 04/24/19 15:29 04/24/19 15:29 04/24/19 15:29 04/24/19 15:29 Exam: General: Elderly, not in any form of distress, sleeping but rousable HEENT: Moist oral mucosa, not cyanotic, not pale Chest: CTAB Cardio: Normal S1 and S2, regular rate and rhythm Abdomen: Soft, non-tender, no palpably enlarged organs Extremities: No pedal edema. R hand in dressing Neuro: Asleep but rousable, speech is normal, no facial paralysis Skin: No rash/ulcers Psych: Mood and affect appropriate - Assessment and Plan (1) Gangrene of finger of right hand Current Visit: Yes Status: Acute DVT Prophylaxis: SQ heparin - Summary of Assessment and Plan Summary of Assessment and Plan: Shakeel Espinoza is a 78 M w hx dementia, CAD, PAD, CVA, HTN, HLD, DM2, COPD, GERD, osteoporosis, who was recently hospitalized after being found down on ground for prolonged period of time with subsequent limb ischemia and reperfusion injury to RUE leading to gangrenous R 3rd and 4th fingers, who presented for scheduled amputation on 04/16. #Gangrene R 3rd and 4th fingers now s/p amputation and debridement on 04/[address] Mejias. Intraop cultures growing arturo felt to be contaminant. - f/u wound and ortho - ID consulted, appreciate rec's, no abx or antifungal therapy needed at this time - SW consulted for SNF placement, awaiting placement #Acute metabolic encephalopathy: resolved, continue precautions #PVCs: improved w replacement of K and Mg #DM2: controlled, SSI #CAD: continue home meds, no angina #HTN: controlled, home meds - Time Spent with Patient Total time spent is greater than 50% in coordination of care (as documented) at patient's floor/unit and/or counseling patient: Internal Medicine: Result - Labs CBC & Chem 7: 04/22/19 03:31 04/22/19 03:31 Consult Discharge Plan - Plan Additional Instructions: Do not remove dressings Elevate hand. Do not move fingers Use ice for 1 to 2 hour 3 times a day for the next 2 days. No lifting with the operative hand No sports or gym activities follow-up in 1 week with Natali Bradford PA-C Referrals: Jose Don MD [Primary Care Provider] -
[2019-04-24] MEDS: Silvasorb 44.4 ML TUBE TP SCH (22:21)
[2019-04-25] MEDS: 0.9 % Sodium Chloride 1,000 ML IVC SCH (05:22)
[2019-04-25] MEDS: *HR* Enoxaparin 40 MG/0.4 ML SYRINGE SQ SCH (06:04)
[2019-04-25] MEDS: Ascorbic Acid 500 MG TABLET PO SCH (06:04)
[2019-04-25] MEDS: MOMETASONE FUROATE 100 mcg Inhaler IH SCH ×2 (07:48→20:45)
[2019-04-25] MEDS: Insulin LISPRO 300 UNITS/3 ML VIAL SQ SCH ×4 (08:42→20:30)
[2019-04-25] MEDS: risperiDONE 0.25 MG TABLET PO SCH ×2 (08:42→20:28)
[2019-04-25] MEDS: Tiotropium 18 MCG inhalation IH SCH (10:15)
--- NOTE | 2019-04-25 14:50 | Internal Med Progress Note ---
Hospitalist Progress Note - Encounter Date of Encounter: 04/25/19 Time of Encounter: 10:45 - Subjective Interval History: Seen and examined at the bedside Awake, alert, no complains,speaks full sentences Denies any overnight events - Exam Vitals: Temp Pulse Resp BP Pulse Ox 98.1 F 68 16 155/61 97 04/25/19 12:06 04/25/19 12:06 04/25/19 12:06 04/25/19 12:06 04/25/19 12:06 Exam: General: Elderly, not in any form of distress, sleeping but rousable HEENT: Moist oral mucosa, not cyanotic, not pale Chest: CTAB Cardio: Normal S1 and S2, regular rate and rhythm Abdomen: Soft, non-tender, no palpably enlarged organs Extremities: No pedal edema. R hand in dressing Neuro: AAOX3, speech is normal, no facial paralysis, moves all extremities equally Skin: No rash/ulcers Psych: Mood and affect appropriate - Assessment and Plan (1) Gangrene of finger of right hand Current Visit: Yes Status: Acute Assessment and Plan: Pt is s/p debridement on 04/[address] Mejias. Culture with yeast; likely contaminant and ID consultation agrees with this. Follow up wound care and Ortho. DVT Prophylaxis: SQ heparin - Summary of Assessment and Plan Summary of Assessment and Plan: Shakeel Espinoza is a 78 M w hx dementia, CAD, PAD, CVA, HTN, HLD, DM2, COPD, GERD, osteoporosis, who was recently hospitalized after being found down on ground for prolonged period of time with subsequent limb ischemia and reperfusion injury to RUE leading to gangrenous R 3rd and 4th fingers, who presented for scheduled amputation on 04/16. #Gangrene R 3rd and 4th fingers now s/p amputation and debridement on 04/[address] Mejias. Intraop cultures growing arturo felt to be contaminant. - f/u wound and ortho - ID consulted, appreciate rec's, no abx or antifungal therapy needed at this time - SW consulted for SNF placement, awaiting placement #Acute metabolic encephalopathy: resolved, continue precautions #PVCs: improved w replacement of K and Mg #DM2: controlled, SSI #CAD: continue home meds, no angina #HTN: controlled, home meds - Time Spent with Patient Total time spent is greater than 50% in coordination of care (as documented) at patient's floor/unit and/or counseling patient: Plan of Care Discussed with: patient Internal Medicine: Result - Labs CBC & Chem 7: 04/22/19 03:31 04/22/19 03:31 Consult Discharge Plan - Plan Additional Instructions: Do not remove dressings Elevate hand. Do not move fingers Use ice for 1 to 2 hour 3 times a day for the next 2 days. No lifting with the operative hand No sports or gym activities follow-up in 1 week with Natali Bradford PA-C Referrals: Jose Don MD [Primary Care Provider] -
[2019-04-25] MEDS: Silvasorb 44.4 ML TUBE TP SCH (20:28)
[2019-04-26] MEDS: Ascorbic Acid 500 MG TABLET PO SCH (04:34)
[2019-04-26] MEDS: *HR* Enoxaparin 40 MG/0.4 ML SYRINGE SQ SCH (04:34)
[2019-04-26] MEDS: Insulin LISPRO 300 UNITS/3 ML VIAL SQ SCH ×2 (08:21→13:42)
[2019-04-26] MEDS: risperiDONE 0.25 MG TABLET PO SCH (09:33)
[2019-04-26] MEDS: MOMETASONE FUROATE 100 mcg Inhaler IH SCH (10:32)
[2019-04-26] MEDS: Tiotropium 18 MCG inhalation IH SCH (10:32)
[2019-04-26 10:41] VITALS: BP 120/73
--- NOTE | 2019-04-26 12:01 | Discharge Summary ---
- NOTES TO OUTPATIENT PROVIDER Notes to Outpatient Provider: Patient was found down on the ground for a prolonged time but subsequently and ischemia reperfusion injury to right upper extremity leading to gangrenous right third and fourth fingers. He was admitted for scheduled amputation on 04/16 and has been stable postop. Intraoperative cultures were unremarkable. Patient's other chronic medical conditions have been stable and he is discharged to alf facility for rehabilitation with appropriate follow-up with orthopedic team and primary care physician. Plan of care discussed with the patient verbalized understanding. Orders not resulted at time of discharge: Pending orders 04/16/19 16:31 US anesthesia pain block [US] Routine 04/16/19 19:28 Surgical Pathology [PTH] Routine Date of Encounter: 04/26/19 Time of Encounter: 11:59 - Discharge Diagnosis (1) Gangrene of finger of right hand Priority: Primary Status: Acute Hospital course: Mr Shakeel Espinoza is a 78 M w hx dementia, CAD, PAD, CVA, HTN, HLD, DM2, COPD, GERD, osteoporosis, who was recently hospitalized after being found down on ground for prolonged period of time with subsequent limb ischemia and reperfusion injury to RUE leading to gangrenous R 3rd and 4th fingers, who presented for scheduled amputation on 04/16. He is now s/p amputation and debridement on 04/[address] Mejias. Intraop cultures growing arturo felt to be contaminant. He has been clinically stable awaiting authorization and placement to rehab and is discharged to rehab in clinically stable condition Chronic medical problems are stable. Plan of care discussed, verbalized understanding Follow up with Ortho and PCP Discharge discussed with: patient, nurse, case management - Time Spent with Patient Total time spent providing and/or coordinating discharge services: 20 minutes spent on face to face encounter , med rec, documentation Time spent: Less than 30 minutes - Discharge Medications Prescriptions: Continued Mometasone Furoate [Asmanex Hfa] 2 puff IH BIDRESP puff Aspirin Enteric Coated [Aspirin EC] 81 mg PO DAILY tablet. Miconazole 2% cream [Melyssa Antifungal] 1 appl TP BID tube Tamsulosin [Flomax] 0.4 mg PO DAILY capsule Insulin LISPRO [HumaLOG] 0 units SQ HS vial Insulin LISPRO [HumaLOG] 0 units SQ TIDAC vial risperiDONE [RisperDAL] 0.25 mg PO HS tablet Silvasorb 1 appl TP HS tube Tiotropium [Spiriva] 18 mcg IH DAILYR inh Acetaminophen [Tylenol] 650 mg PO Q6HR PRN tablet PRN Reason: Fever ALPRAZolam [Xanax 0.5 MG Tablet] 0.5 mg PO Q4H PRN PRN Reason: Anxiety Multivitamin [Daily Multiple Vitamin] 1 tab PO DAILY Ferrous Sulfate 325 mg PO 0630 #30 tablet Ascorbic Acid [Vitamin C] 500 mg PO 0630 #30 tablet Cholecalciferol (D-3) [Vitamin D] 2,000 unit PO DAILY #60 tablet Home Medications: Acetaminophen [Tylenol] 650 mg PO Q6HR PRN tablet 03/24/19 [Rx] Aspirin Enteric Coated [Aspirin EC] 81 mg PO DAILY tablet. 03/24/19 [Rx] Insulin LISPRO [HumaLOG] 0 units SQ HS vial 03/24/19 [Rx] Insulin LISPRO [HumaLOG] 0 units SQ TIDAC vial 03/24/19 [Rx] Miconazole 2% cream [Melyssa Antifungal] 1 appl TP BID tube 03/24/19 [Rx] Mometasone Furoate [Asmanex Hfa] 2 puff IH BIDRESP puff 03/24/19 [Rx] Silvasorb 1 appl TP HS tube 03/24/19 [Rx] Tamsulosin [Flomax] 0.4 mg PO DAILY capsule 03/24/19 [Rx] Tiotropium [Spiriva] 18 mcg IH DAILYR inh 03/24/19 [Rx] risperiDONE [RisperDAL] 0.25 mg PO HS tablet 03/24/19 [Rx] ALPRAZolam [Xanax 0.5 MG Tablet] 0.5 mg PO Q4H PRN 04/16/19 [History] Ascorbic Acid [Vitamin C] 500 mg PO 0630 #30 tablet 04/16/19 [Rx] Cholecalciferol (D-3) [Vitamin D] 2,000 unit PO DAILY #60 tablet 04/16/19 [Rx] Ferrous Sulfate 325 mg PO 0630 #30 tablet 04/16/19 [Rx] Multivitamin [Daily Multiple Vitamin] 1 tab PO DAILY 04/16/19 [History] Allergies/Adverse Reactions: Allergy/AdvReac Type Severity Reaction Status Date / Time Penicillins [PCN] Allergy Hives Verified 04/16/19 16:06 tetanus and diphtheria AdvReac Hives Verified 04/16/19 14:01 toxoids [Tetanus&Diphtheria Toxoid] Date of admission: 04/19/19 19:58 Primary care physician: Jose Don MD Consults: 04/16/19 20:50 Consult to Occupational Therapy [CONS] Routine Comment: Evaluate, develop and implement POC Reason for Consult: weakness, sx Does patient have active BEDREST order?: No Is patient medically & hemodynamically stable?: Yes Patient assessed for mobility or mobilized this visit?: No Consult to Physical Therapy [CONS] Routine Comment: Evaluate, develop and implement POC Reason for Consult: ptot consult Does patient have active BEDREST order?: No Is patient medically & hemodynamically stable?: Yes Patient assessed for mobility or mobilized this visit?: No Consult to Evaluation Engineer [CONS] Routine Reason for SW Consult: pt not picked up by family from [place], dc planning 04/16/19 20:56 Consult to Wound Care [CONS] Routine Reason for Consult: multiple wounds Call Completed: No 04/20/19 13:58 Consult to Infectious Diseases [CONS] Routine Consulting Provider: Infectious Disease Eleni Reason for Consult: Right hand ganagrene Call Completed: No Discharging clinician: Jeremías Monroe Anticipated date of discharge: 04/26/19 - Constitutional Vitals: Temp Pulse Resp BP Pulse Ox 97.5 F L 81 16 120/73 93 04/26/19 10:40 04/26/19 10:40 04/26/19 10:40 04/26/19 10:40 04/26/19 10:40 General appearance: Present: A&O X 3, pleasant, no acute distress Exam: General: Elderly, not in any form of distress, sleeping but rousable HEENT: Moist oral mucosa, not cyanotic, not pale Chest: CTAB Cardio: Normal S1 and S2, regular rate and rhythm Abdomen: Soft, non-tender, no palpably enlarged organs Extremities: No pedal edema. R hand in dressing Neuro: AAOX3, speech is normal, no facial paralysis, moves all extremities equally Skin: No rash/ulcers Psych: Mood and affect appropriate - Patient Status Disposition: Transfer SNF Condition: Fair Functional capacity at discharge: uses cane/walker Overall status at discharge: patient is progressing back to baseline - Discharge Instructions Follow Up With: Jose Don MD [Primary Care Provider] - Additional Instructions: Do not remove dressings Elevate hand. Do not move fingers Use ice for 1 to 2 hour 3 times a day for the next 2 days. No lifting with the operative hand No sports or gym activities follow-up in 1 week with Natali Bradford PA-C - Diet and Activity Activity: resume usual activities as tolerated Diet: diabetic diet, low salt diet
--- NOTE | 2019-04-26 13:07 | Orthopedics Progress Note ---
Date of Encounter: 04/26/19 Time of Encounter: 12:30 - Assessment and Plan (1) Status post surgical amputation of finger of left hand Current Visit: Yes Status: Acute Continue daily dressing changes with xeroform, dry gauze and kerlix. Cleanse hand daily with each change. Make sure to pad under the small finger to prevent nail from going into skin. Continue to elevate hand and ice as needed. No lifting with the operative hand Wound cultures - arturo albicans ID has been consulted and appreciate their recommendations - believes this to be contaminant and no recommendation for antibiotic or antifungals at this time. Patient planned to go to f today. Will cancel appt in [facility] office today and move to next week for wound check possible suture removal (2) Gangrene of finger of right hand Current Visit: Yes Status: Acute Subjective Principal diagnosis: s/p right LF and RF amputation, wound debridement 04/16/19 Interval history: Patient pleasant today stating he has no concerns at this time. Denies any pain to hand. He does admit to spilling coffee on his dressings about 1 hour ago and denies any actual drainage from the incisions. Objective Vital signs: Vital Signs Temp Pulse Resp BP Pulse Ox 04/26/19 10:40 97.5 F L 81 16 120/73 93 04/26/19 10:32 16 91 04/26/19 06:43 97.9 F 73 16 148/69 93 04/26/19 04:45 98.5 F 68 17 148/83 94 04/25/19 23:57 99.0 F 75 18 149/70 95 04/25/19 20:47 15 97 04/25/19 20:32 95 04/25/19 20:06 98.1 F 76 18 162/74 95 04/25/19 16:46 97.6 F 80 16 160/72 96 Intake and Output 04/25/19 04/26/19 04/26/19 23:59 07:59 15:59 Intake Total 450 / 1990 240 / 240 Output Total 500 / 500 Balance -50 / 1490 240 / 240 Intake: Oral 450 / 990 240 / 240 Output: Urine 500 / 500 Other: Meal Breakfast Percent of Meal Consumed 75% # Voids 2 1 Weight 78 kg Blood Glucose* 124 255 Incision: healing (Incisions to distal LF and RF are healing appropriately with no erythema or drainage, sutures in place. multiple eschars still present to dorsal hand and sides of wrist. limited ROM of hand secondary to previous stroke/contractures.) - Labs CBC & BMP: 04/22/19 03:31 04/22/19 03:31 Labs: Abnormal lab results WBC 11.3 K/mcL (4.3-11.1) H 04/21/19 03:50 RBC 3.93 M/mcL (4.19-5.50) L 04/22/19 03:31 Hgb 10.9 g/dL (12.9-16.9) L 04/22/19 03:31 Hct 34.8 % (37.5-50.1) L 04/22/19 03:31 MCH 27.7 pg (28.0-33.3) L 04/22/19 03:31 MCHC 31.3 g/dL (31.6-35.5) L 04/22/19 03:31 0.7 K/mcL (0.0-0.6) H 04/21/19 03:50 Potassium 3.0 mEq/L (3.5-5.1) L 04/21/19 12:55 Carbon Dioxide 31 mEq/L (23-29) H 04/21/19 03:50 0.66 mg/dL (0.70-1.30) L 04/22/19 03:31 Glucose 178 mg/dL (70-105) H 04/22/19 03:31 POC Glucose 133 mg/dL (70-99) H 04/25/19 12:04 Calcium 8.4 mg/dL (8.6-10.3) L 04/22/19 03:31 3.0 g/dL (3.5-5.7) L 04/16/19 20:49 3.8 g/dL (2.4-3.5) H 04/16/19 20:49 0.8 (1.1-2.2) L 04/16/19 20:49 Consult Discharge Plan - Plan Additional Instructions: Continue daily dressing changes with xeroform over incisions and the eschars to hand, dry gauze and kerlix. Cleanse hand daily with each change. Make sure to pad under the small finger to prevent nail from going into skin. Continue to elevate hand and ice as needed. No lifting with the operative hand Referrals: Jose Don MD [Primary Care Provider] -
--- NOTE | 2019-04-26 14:05 | Physician Discharge Referral ---
ExtendedCare Referral Info Transfer To: SNF Provider in Charge after Transfer: PCP Institutional Level of Care: Skilled - Diagnosis (1) Gangrene of finger of right hand Priority: Primary Status: Acute - Transfer Medications Home Medications: Acetaminophen [Tylenol] 650 mg PO Q6HR PRN tablet 03/24/19 [Rx] Aspirin Enteric Coated [Aspirin EC] 81 mg PO DAILY tablet. 03/24/19 [Rx] Insulin LISPRO [HumaLOG] 0 units SQ HS vial 03/24/19 [Rx] Insulin LISPRO [HumaLOG] 0 units SQ TIDAC vial 03/24/19 [Rx] Miconazole 2% cream [Melyssa Antifungal] 1 appl TP BID tube 03/24/19 [Rx] Mometasone Furoate [Asmanex Hfa] 2 puff IH BIDRESP puff 03/24/19 [Rx] Silvasorb 1 appl TP HS tube 03/24/19 [Rx] Tamsulosin [Flomax] 0.4 mg PO DAILY capsule 03/24/19 [Rx] Tiotropium [Spiriva] 18 mcg IH DAILYR inh 03/24/19 [Rx] risperiDONE [RisperDAL] 0.25 mg PO HS tablet 03/24/19 [Rx] ALPRAZolam [Xanax 0.5 MG Tablet] 0.5 mg PO Q4H PRN 04/16/19 [History] Ascorbic Acid [Vitamin C] 500 mg PO 0630 #30 tablet 04/16/19 [Rx] Cholecalciferol (D-3) [Vitamin D] 2,000 unit PO DAILY #60 tablet 04/16/19 [Rx] Ferrous Sulfate 325 mg PO 0630 #30 tablet 04/16/19 [Rx] Multivitamin [Daily Multiple Vitamin] 1 tab PO DAILY 04/16/19 [History] Allergies/Adverse Reactions: Allergy/AdvReac Type Severity Reaction Status Date / Time Penicillins [PCN] Allergy Hives Verified 04/16/19 16:06 tetanus and diphtheria AdvReac Hives Verified 04/16/19 14:01 toxoids [Tetanus&Diphtheria Toxoid] - Respiratory Orders Smoking Cessation: Smoking cessation has been advised. For more information, call the [facility] [employer] Quit Line at 8-892-WYPT-NOW. - Advance Directives Code Status: Full Code - Mobility Orders Ambulate - Rehabiliation Orders Rehab Potential: Fair Rehab Orders: Evaluation for Physical Therapy, Evaluation for Occupational Therapy - Diet Orders Cardiac CERTIFICATION: I certify that the transfer of the above named patient to an Extended Care Facility is necessary for the continuing treatment of the diagnosis listed. The above information is true and accurate reflection of patient's current condition. Confidential - Redisclosure prohibited without a patient's written consent.
== END 2019-04-26 14:04 | DRG 255 ==
LOC: 3NENU 13:18 → SAMDAY 13:18 → SUATTDRO 19:59
PROVIDERS: ADMIT Internal Medicine; ATTEND Internal Medicine

== ENCOUNTER 2019-06-05 20:48 | Inpatient (IN) ==
[2019-06-05] MEDS ORDERED: methylPREDNISolone 125 MG/2 ML VIAL IVP ONE (21:02)
[2019-06-05] MEDS ORDERED: Ipratropium/Albuterol Neb 3 ML IH STA (21:02)
[2019-06-05 21:41] LABS: Basophils % 0.5 %; Eosinophils # 0.6 K/mcL (0.0-0.6); Eosinophils % 7.2 %; Hematocrit 40.6 % (37.5-50.1); Hemoglobin 12.4 g/dL (12.9-16.9); Immature Granulocytes % 0.5 % (0-4); Lymphocytes # 1.7 K/mcL (0.6-4.6); Lymphocytes % 20.6 %; Mean Corpuscular HGB Conc 30.5 g/dL (31.6-35.5); Mean Corpuscular Hemoglobin 26.6 pg (28.0-33.3); Mean Corpuscular Volume 86.9 fL (83.0-100.0); Mean Platelet Volume 10.2 fL (9.4-12.4); Monocytes # 0.5 K/mcL (0.0-1.3); Monocytes % 6.6 %; Neutrophils # 5.3 K/mcL (1.6-8.9); Platelet Count 332 K/mcL (140-400); Red Blood Count 4.67 M/mcL (4.19-5.50); Red Cell Distribution Width 16.2 % (11.5-14.5); Segmented Neutrophils % 64.6 %; White Blood Count 8.2 K/mcL (4.3-11.1)
[2019-06-05] MEDS ORDERED: 0.9 % Sodium Chloride 1,000 ML IVC ONE ×2 (21:54→23:04)
[2019-06-05 22:00] LABS: Alanine Aminotransferase 7 Units/L (7-52); Albumin 2.9 g/dL (3.5-5.7); Albumin/Globulin Ratio 0.8 (1.1-2.2); Alkaline Phosphatase 69 Units/L (34-104); Aspartate Amino Transferase 14 Units/L (13-39); BUN/Creatinine Ratio 10 (6-26); Bilirubin,Total 0.3 mg/dL (0.3-1.0); Blood Urea Nitrogen 8 mg/dL (8-23); Carbon Dioxide 31 mEq/L (23-29); Chloride 104 mEq/L (98-107); Globulin 3.6 g/dL (2.4-3.5); Glucose 239 mg/dL (70-105); Osmolality,Calculated 300 (280-300); Potassium 3.7 mEq/L (3.5-5.1); Sodium 142 mEq/L (136-145); Total Protein 6.5 g/dL (6.4-8.9); eGFR For African Americans > 60 (> 60); eGFR For Non-African Americans > 60 (> 60)
[2019-06-05 22:18] LABS: Alanine Aminotransferase 6 Units/L (7-52); Albumin 2.8 g/dL (3.5-5.7); Albumin/Globulin Ratio 0.8 (1.1-2.2); Alkaline Phosphatase 68 Units/L (34-104); Aspartate Amino Transferase 13 Units/L (13-39); Bilirubin,Direct 0.1 mg/dL (0.0-0.2); Bilirubin,Indirect 0.2 mg/dL (0.0-1.2); Bilirubin,Total 0.3 mg/dL (0.3-1.0); Globulin 3.5 g/dL (2.4-3.5); Total Protein 6.3 g/dL (6.4-8.9); Troponin I < 0.03 ng/mL (< 0.04)
[2019-06-05 22:36] LABS: Bilirubin,Urine Negative (Negative); Blood,Urine Negative (Negative); Clarity,Urine Clear (Clear); Color,Urine Dark Yellow (Yellow); Glucose,Urine (UA) Normal (Normal); Ketones,Urine Negative (Negative); Leukocyte Esterase,Urine Negative (Negative); Nitrite,Urine Negative (Negative); Protein,Urine Negative (Neg-Trace); Urobilinogen,Urine Normal (Normal)
[2019-06-05] MEDS ORDERED: Azithromycin 500 MG in D5% in Water 250 ML IVPB ONE (22:44)
[2019-06-05] MEDS ORDERED: 0.9 % Sodium Chloride 500 ML IVC ONE (23:05)
[2019-06-05] MEDS ORDERED: Cefepime HCl 2,000 MG in Water for inj. (sterile) 20 ML IVP ONE (23:38)
[2019-06-06] MEDS ORDERED: Naloxone 0.4 MG/ML INJ IVP PRN (06:03)
[2019-06-06] MEDS ORDERED: D5% in Water 1,000 ML IVC PRN (06:04)
[2019-06-06] MEDS ORDERED: Dextrose Gel 15 GM/37.5 ML TUBE PO PRN ×2 (06:04)
[2019-06-06] MEDS ORDERED: *HR* Dextrose 50 % in Water (Syg) 50 ML SYRINGE IVP PRN (06:04)
[2019-06-06] MEDS: Insulin LISPRO 300 UNITS/3 ML VIAL SQ SCH ×4 (06:54→23:39)
[2019-06-06] MEDS: Piperacillin/Tazobactam 3.375 GM in 0.9 % Sodium Chloride Mini Bag 100 ML IVPB SCH ×3 (07:42→23:39)
[2019-06-06 09:52] LABS: Hematocrit 36.5 % (37.5-50.1); Hemoglobin 11.2 g/dL (12.9-16.9); Mean Corpuscular HGB Conc 30.7 g/dL (31.6-35.5); Mean Corpuscular Hemoglobin 26.2 pg (28.0-33.3); Mean Corpuscular Volume 85.5 fL (83.0-100.0); Mean Platelet Volume 10.8 fL (9.4-12.4); Platelet Count 297 K/mcL (140-400); Red Blood Count 4.27 M/mcL (4.19-5.50); Red Cell Distribution Width 16.2 % (11.5-14.5)
[2019-06-06 09:56] LABS: White Blood Count 14.3 K/mcL (4.3-11.1)
[2019-06-06 10:06] LABS: BUN/Creatinine Ratio 11 (6-26); Blood Urea Nitrogen 8 mg/dL (8-23); Calcium 8.3 mg/dL (8.6-10.3); Carbon Dioxide 27 mEq/L (23-29); Chloride 106 mEq/L (98-107); Glucose 233 mg/dL (70-105); Osmolality,Calculated 300 (280-300); Potassium 4.1 mEq/L (3.5-5.1); Sodium 142 mEq/L (136-145); eGFR For African Americans > 60 (> 60); eGFR For Non-African Americans > 60 (> 60)
[2019-06-06] MEDS: 0.9 % Sodium Chloride 1,000 ML IVC SCH (14:14)
[2019-06-06 16:47] LABS: ABG Base Excess 6 mEq/L (-2 to 3); ABG HCO3 30 mEq/L (21-27); ABG Oxygen Saturation 98 % (95-98); ABG PCO2 38 mmHg (35-45); ABG PO2 89 mmHg (85-104); ABG TCO2 31 mEq/L (20-26)
[2019-06-06] MEDS: *HR* Heparin 5,000 UNIT/ML VIAL SQ SCH (17:03)
[2019-06-06] MEDS ORDERED: Cefepime HCl 2,000 MG in Water for inj. (sterile) 20 ML IVP ONE (22:44)
[2019-06-07] MEDS: 0.9 % Sodium Chloride 1,000 ML IVC SCH ×2 (03:46→17:06)
[2019-06-07] MEDS: *HR* Heparin 5,000 UNIT/ML VIAL SQ SCH ×2 (05:17→17:17)
[2019-06-07] MEDS: Insulin LISPRO 300 UNITS/3 ML VIAL SQ SCH ×3 (06:41→18:03)
[2019-06-07] MEDS: Piperacillin/Tazobactam 3.375 GM in 0.9 % Sodium Chloride Mini Bag 100 ML IVPB SCH ×2 (07:58→16:18)
[2019-06-07] MEDS ORDERED: E-Z-PAQUE (BARIUM SULF) SUSP 1 BOTTLE PO ONE (10:36)
[2019-06-07] MEDS ORDERED: E-Z-HD (BARIUM SULF) SUSPENSION PO ONE (10:36)
[2019-06-07 14:50] LABS: Hemoglobin 11.4 g/dL (12.9-16.9); Mean Corpuscular HGB Conc 31.7 g/dL (31.6-35.5); Mean Corpuscular Hemoglobin 26.9 pg (28.0-33.3); Mean Corpuscular Volume 84.9 fL (83.0-100.0); Mean Platelet Volume 10.2 fL (9.4-12.4); Platelet Count 321 K/mcL (140-400); Red Blood Count 4.24 M/mcL (4.19-5.50); Red Cell Distribution Width 16.3 % (11.5-14.5); White Blood Count 14.2 K/mcL (4.3-11.1)
[2019-06-07 15:52] LABS: Alanine Aminotransferase 5 Units/L (7-52); Albumin 2.7 g/dL (3.5-5.7); Albumin/Globulin Ratio 0.9 (1.1-2.2); Alkaline Phosphatase 51 Units/L (34-104); Aspartate Amino Transferase 9 Units/L (13-39); BUN/Creatinine Ratio 11 (6-26); Bilirubin,Total 0.4 mg/dL (0.3-1.0); Blood Urea Nitrogen 7 mg/dL (8-23); Calcium 8.1 mg/dL (8.6-10.3); Carbon Dioxide 28 mEq/L (23-29); Chloride 105 mEq/L (98-107); Glucose 95 mg/dL (70-105); Magnesium 1.8 mg/dL (1.6-2.6); Osmolality,Calculated 284 (280-300); Phosphorous 2.2 mg/dL (2.7-4.5); Sodium 138 mEq/L (136-145); Total Protein 5.7 g/dL (6.4-8.9); eGFR For African Americans > 60 (> 60); eGFR For Non-African Americans > 60 (> 60)
[2019-06-07] MEDS ORDERED: Potassium Phosphate 44 MEQ in 0.9 % Sodium Chloride 250 ML IVPB ONE (16:48)
[2019-06-07 20:03] LABS: Adenovirus F 40/41 PCR Not detected (Not detect); Astrovirus PCR Not detected (Not detect); Campylobacter by PCR Not detected (Not detect); Cryptosporidium by PCR Not detected (Not detect); Cyclospora cayetanensis PCR Not detected (Not detect); E. coli O157 by PCR Not detected (Not detect); Entamoeba histolytica PCR Not detected (Not detect); Enteroaggregative E.coli(EAEC) Not detected (Not detect); Enteropathogenic E.coli(EPEC) Not detected (Not detect); Enterotoxigenic E.coli (ETEC) Not detected (Not detect); Giardia lamblia PCR Not detected (Not detect); Norovirus GI/GII PCR Not detected (Not detect); Plesiomonas shigelloides PCR Not detected (Not detect); Rotavirus A PCR Not detected (Not detect); Salmonella PCR Not detected (Not detect); Sapovirus PCR Not detected (Not detect); Shig/EnteroinvasiveE coli EIEC Not detected (Not detect); Shigalike tox-prod E coli STEC Not detected (Not detect); Vibrio PCR Not detected (Not detect); Vibrio cholerae PCR Not detected (Not detect); Yersinia enterocolitica PCR Not detected (Not detect)
[2019-06-07 20:06] LABS: C.difficile Toxin A/B Gene PCR DETECTED (Not detect)
[2019-06-08] MEDS: Piperacillin/Tazobactam 3.375 GM in 0.9 % Sodium Chloride Mini Bag 100 ML IVPB SCH (00:53)
[2019-06-08 01:49] LABS: Hematocrit 34.5 % (37.5-50.1); Hemoglobin 11.1 g/dL (12.9-16.9); Mean Corpuscular HGB Conc 32.2 g/dL (31.6-35.5); Mean Corpuscular Hemoglobin 27.3 pg (28.0-33.3); Mean Corpuscular Volume 84.8 fL (83.0-100.0); Mean Platelet Volume 10.5 fL (9.4-12.4); Platelet Count 308 K/mcL (140-400); Red Blood Count 4.07 M/mcL (4.19-5.50); Red Cell Distribution Width 16.1 % (11.5-14.5)
[2019-06-08 02:09] LABS: Alanine Aminotransferase 5 Units/L (7-52); Albumin 2.5 g/dL (3.5-5.7); Albumin/Globulin Ratio 0.9 (1.1-2.2); Alkaline Phosphatase 49 Units/L (34-104); Aspartate Amino Transferase 9 Units/L (13-39); BUN/Creatinine Ratio 10 (6-26); Bilirubin,Total 0.4 mg/dL (0.3-1.0); Blood Urea Nitrogen 6 mg/dL (8-23); Calcium 7.7 mg/dL (8.6-10.3); Carbon Dioxide 25 mEq/L (23-29); Chloride 105 mEq/L (98-107); Globulin 2.9 g/dL (2.4-3.5); Glucose 76 mg/dL (70-105); Magnesium 1.7 mg/dL (1.6-2.6); Osmolality,Calculated 282 (280-300); Phosphorous 3.8 mg/dL (2.7-4.5); Potassium 3.1 mEq/L (3.5-5.1); Sodium 138 mEq/L (136-145); Total Protein 5.4 g/dL (6.4-8.9); eGFR For African Americans > 60 (> 60); eGFR For Non-African Americans > 60 (> 60)
[2019-06-08] MEDS: Insulin LISPRO 300 UNITS/3 ML VIAL SQ SCH ×4 (02:14→18:15)
[2019-06-08] MEDS: *HR* Heparin 5,000 UNIT/ML VIAL SQ SCH ×2 (05:32→18:14)
[2019-06-08] MEDS: 0.9 % Sodium Chloride 1,000 ML IVC SCH (06:40)
[2019-06-08] MEDS: Cefepime HCl 1,000 MG in Water for inj. (sterile) 10 ML IVP SCH ×2 (08:23→15:53)
[2019-06-08] MEDS: MetroNIDAZOLE 500 MG/100 ML 500 MG/100 ML BAG IVPB SCH ×2 (08:24→15:53)
[2019-06-08] MEDS ORDERED: Haloperidol Lactate 5 MG/ML VIAL IVP PRN (10:04)
[2019-06-08] MEDS: Vancomycin 500 MG, Sodium Chloride IRRigation 250 ML RC SCH ×4 (11:18→20:49)
[2019-06-08] MEDS: D5% in 0.45% NACL w KCl 20 MEQ/1,000 ML MLS IVC SCH (11:31)
[2019-06-08 17:07] LABS: BUN/Creatinine Ratio 10 (6-26); Blood Urea Nitrogen 5 mg/dL (8-23); Calcium 7.9 mg/dL (8.6-10.3); Carbon Dioxide 27 mEq/L (23-29); Chloride 103 mEq/L (98-107); Glucose 117 mg/dL (70-105); Magnesium 1.7 mg/dL (1.6-2.6); Osmolality,Calculated 282 (280-300); Sodium 137 mEq/L (136-145); eGFR For African Americans > 60 (> 60); eGFR For Non-African Americans > 60 (> 60)
[2019-06-08] MEDS: Silvasorb 44.4 ML TUBE TP SCH (18:15)
[2019-06-09] MEDS: MetroNIDAZOLE 500 MG/100 ML 500 MG/100 ML BAG IVPB SCH ×3 (00:01→17:22)
[2019-06-09] MEDS: Insulin LISPRO 300 UNITS/3 ML VIAL SQ SCH ×4 (00:15→17:51)
[2019-06-09] MEDS: Cefepime HCl 1,000 MG in Water for inj. (sterile) 10 ML IVP SCH ×3 (00:18→17:22)
[2019-06-09] MEDS: D5% in 0.45% NACL w KCl 20 MEQ/1,000 ML MLS IVC SCH ×2 (00:23→14:16)
[2019-06-09 04:23] LABS: Basophils # 0.1 K/mcL (0.0-0.2); Basophils % 0.5 %; Eosinophils # 0.6 K/mcL (0.0-0.6); Eosinophils % 6.9 %; Immature Granulocytes % 0.5 % (0-4); Lymphocytes # 1.6 K/mcL (0.6-4.6); Lymphocytes % 17.3 %; Mean Corpuscular HGB Conc 31.6 g/dL (31.6-35.5); Mean Corpuscular Volume 82.3 fL (83.0-100.0); Mean Platelet Volume 10.1 fL (9.4-12.4); Monocytes # 0.8 K/mcL (0.0-1.3); Monocytes % 8.2 %; Neutrophils # 6.1 K/mcL (1.6-8.9); Platelet Count 310 K/mcL (140-400); Red Blood Count 4.62 M/mcL (4.19-5.50); Red Cell Distribution Width 16.1 % (11.5-14.5); Segmented Neutrophils % 66.6 %; White Blood Count 9.2 K/mcL (4.3-11.1)
[2019-06-09 04:45] LABS: BUN/Creatinine Ratio 9 (6-26); Blood Urea Nitrogen 4 mg/dL (8-23); Calcium 8.1 mg/dL (8.6-10.3); Carbon Dioxide 27 mEq/L (23-29); Chloride 103 mEq/L (98-107); Glucose 136 mg/dL (70-105); Magnesium 2.1 mg/dL (1.6-2.6); Osmolality,Calculated 283 (280-300); Potassium 3.1 mEq/L (3.5-5.1); Sodium 137 mEq/L (136-145); eGFR For African Americans > 60 (> 60); eGFR For Non-African Americans > 60 (> 60)
[2019-06-09] MEDS: *HR* Heparin 5,000 UNIT/ML VIAL SQ SCH ×2 (04:50→17:23)
[2019-06-09] MEDS: Silvasorb 44.4 ML TUBE TP SCH (04:54)
[2019-06-09] MEDS: Nystatin POWDER 30 GM BOTTLE TP SCH ×2 (08:04→20:35)
[2019-06-09] MEDS ORDERED: Aminoglycoside Consult 1 EACH MC ONE (09:03)
[2019-06-09] MEDS: Vancomycin 500 MG, Sodium Chloride IRRigation 250 ML RC SCH ×4 (10:24→20:35)
[2019-06-10] MEDS: MetroNIDAZOLE 500 MG/100 ML 500 MG/100 ML BAG IVPB SCH ×3 (00:54→16:18)
[2019-06-10] MEDS: Insulin LISPRO 300 UNITS/3 ML VIAL SQ SCH ×4 (00:54→16:14)
[2019-06-10] MEDS: Cefepime HCl 1,000 MG in Water for inj. (sterile) 10 ML IVP SCH ×3 (00:55→16:38)
[2019-06-10] MEDS: *HR* Heparin 5,000 UNIT/ML VIAL SQ SCH (06:07)
[2019-06-10] MEDS: D5% in 0.45% NACL w KCl 20 MEQ/1,000 ML MLS IVC SCH ×2 (06:08→17:45)
[2019-06-10 06:39] LABS: Basophils # 0.1 K/mcL (0.0-0.2); Basophils % 0.5 %; Eosinophils # 0.8 K/mcL (0.0-0.6); Hematocrit 39.1 % (37.5-50.1); Hemoglobin 12.6 g/dL (12.9-16.9); Immature Granulocytes % 0.4 % (0-4); Lymphocytes # 1.3 K/mcL (0.6-4.6); Lymphocytes % 11.7 %; Mean Corpuscular HGB Conc 32.2 g/dL (31.6-35.5); Mean Corpuscular Volume 83.9 fL (83.0-100.0); Mean Platelet Volume 10.5 fL (9.4-12.4); Monocytes # 0.9 K/mcL (0.0-1.3); Monocytes % 7.8 %; Neutrophils # 8.1 K/mcL (1.6-8.9); Platelet Count 297 K/mcL (140-400); Red Blood Count 4.66 M/mcL (4.19-5.50); Red Cell Distribution Width 16.2 % (11.5-14.5); Segmented Neutrophils % 72.6 %; White Blood Count 11.1 K/mcL (4.3-11.1)
[2019-06-10 07:03] LABS: BUN/Creatinine Ratio 6 (6-26); Blood Urea Nitrogen 3 mg/dL (8-23); Calcium 8.3 mg/dL (8.6-10.3); Carbon Dioxide 25 mEq/L (23-29); Chloride 102 mEq/L (98-107); Glucose 139 mg/dL (70-105); Magnesium 1.9 mg/dL (1.6-2.6); Osmolality,Calculated 283 (280-300); Potassium 3.3 mEq/L (3.5-5.1); Sodium 137 mEq/L (136-145); eGFR For African Americans > 60 (> 60); eGFR For Non-African Americans > 60 (> 60)
[2019-06-10] MEDS: Nystatin POWDER 30 GM BOTTLE TP SCH ×2 (08:16→20:39)
[2019-06-10] MEDS: Vancomycin 500 MG, Sodium Chloride IRRigation 250 ML RC SCH ×2 (08:17→12:06)
[2019-06-10] MEDS: Silvasorb 44.4 ML TUBE TP SCH (10:28)
[2019-06-10] MEDS ORDERED: *HR* OxyCODONE Immed Rel 5 MG TABLET PO PRN (14:08)
[2019-06-11] MEDS: MetroNIDAZOLE 500 MG/100 ML 500 MG/100 ML BAG IVPB SCH ×2 (01:28→08:42)
[2019-06-11] MEDS: Insulin LISPRO 300 UNITS/3 ML VIAL SQ SCH ×3 (01:28→11:45)
[2019-06-11] MEDS: D5% in 0.45% NACL w KCl 20 MEQ/1,000 ML MLS IVC SCH (07:30)
[2019-06-11 11:24] VITALS: BP 142/79
[2019-06-11] MEDS: Nystatin POWDER 30 GM BOTTLE TP SCH (13:43)
[2019-06-11] MEDS: Silvasorb 44.4 ML TUBE TP SCH (13:44)
== END 2019-06-11 15:22 | disposition hospice, home (50) | DRG 871 ==
LOC: 2ANU 20:48 → EMEROOARM 20:48 → 2ANU 23:47 → SUATTDRO 06-09 14:55
PROVIDERS: ADMIT Family Medicine; ATTEND Pharmacist

== ENCOUNTER 2019-06-14 16:54 | Inpatient (IN) ==
[2019-06-14] MEDS ORDERED: *HR* LORazepam 2 MG/ML VIAL IVP ONE (17:32)
[2019-06-14] MEDS ORDERED: 0.9 % Sodium Chloride 1,000 ML IVC ONE ×2 (17:32→19:23)
[2019-06-14] MEDS ORDERED: Piperacillin/Tazobactam 3.375 GM in 0.9 % Sodium Chloride Mini Bag 100 ML IVPB ONE (17:33)
[2019-06-14 17:49] LABS: ABG Base Excess 3 mEq/L (-2 to 3); ABG HCO3 27 mEq/L (21-27); ABG Oxygen Saturation 96 % (95-98); ABG PCO2 37 mmHg (35-45); ABG PH 7.46 pH Units (7.32-7.45); ABG PO2 74 mmHg (85-104); ABG TCO2 28 mEq/L (20-26)
[2019-06-14 18:08] LABS: Basophils # 0.1 K/mcL (0.0-0.2); Basophils % 0.3 %; Eosinophils # 0.2 K/mcL (0.0-0.6); Eosinophils % 0.9 %; Hematocrit 40.4 % (37.5-50.1); Hemoglobin 12.5 g/dL (12.9-16.9); Immature Granulocytes % 0.6 % (0-4); Lymphocytes % 8.4 %; Mean Corpuscular HGB Conc 30.9 g/dL (31.6-35.5); Mean Corpuscular Hemoglobin 26.1 pg (28.0-33.3); Mean Corpuscular Volume 84.3 fL (83.0-100.0); Mean Platelet Volume 10.4 fL (9.4-12.4); Monocytes # 1.6 K/mcL (0.0-1.3); Monocytes % 8.2 %; Platelet Count 368 K/mcL (140-400); Red Blood Count 4.79 M/mcL (4.19-5.50); Red Cell Distribution Width 17.1 % (11.5-14.5); Segmented Neutrophils % 81.6 %
[2019-06-14 18:09] LABS: Lymphocytes # 1.7 K/mcL (0.6-4.6); White Blood Count 19.6 K/mcL (4.3-11.1)
[2019-06-14 18:27] LABS: BUN/Creatinine Ratio 12 (6-26); Blood Urea Nitrogen 7 mg/dL (8-23); Calcium 8.5 mg/dL (8.6-10.3); Carbon Dioxide 26 mEq/L (23-29); Chloride 102 mEq/L (98-107); Glucose 229 mg/dL (70-105); Osmolality,Calculated 291 (280-300); Potassium 3.3 mEq/L (3.5-5.1); Sodium 138 mEq/L (136-145); eGFR For African Americans > 60 (> 60); eGFR For Non-African Americans > 60 (> 60)
[2019-06-14 18:29] LABS: Troponin I < 0.03 ng/mL (< 0.04)
[2019-06-14 20:12] LABS: Bilirubin,Urine Negative (Negative); Blood,Urine Negative (Negative); Clarity,Urine Clear (Clear); Color,Urine Yellow (Yellow); Glucose,Urine (UA) 100 mg/dL (Normal); Ketones,Urine Negative (Negative); Leukocyte Esterase,Urine Negative (Negative); Nitrite,Urine Negative (Negative); Protein,Urine Negative (Neg-Trace); Specific Gravity,Urine 1.009 (1.010-1.025); Urobilinogen,Urine Normal (Normal)
[2019-06-14] MEDS ORDERED: Ondansetron 4 MG/2 ML VIAL IVP PRN (20:17)
[2019-06-14] MEDS ORDERED: Ringers Solution, Lactated 1,000 ML IVC SCH (20:30)
[2019-06-14] MEDS: Ipratropium/Albuterol Neb 3 ML IH SCH ×2 (21:02→23:49)
[2019-06-14] MEDS ORDERED: Isovue-370 500 ML BOTTLE IVP ONE (21:46)
[2019-06-14] MEDS: *HR* Heparin 5,000 UNIT/ML VIAL SQ SCH (23:21)
[2019-06-15] MEDS ORDERED: Piperacillin/Tazobactam 3.375 GM in 0.9 % Sodium Chloride Mini Bag 100 ML IVPB SCH (02:00)
[2019-06-15] MEDS: Ipratropium/Albuterol Neb 3 ML IH SCH ×2 (04:07→07:40)
[2019-06-15] MEDS: *HR* Heparin 5,000 UNIT/ML VIAL SQ SCH ×3 (05:26→21:28)
[2019-06-15] MEDS: Morphine Sulfate Oral CONC 10 MG/0.5 ML ORAL.SYG PO PRN ×2 (05:44→08:56)
[2019-06-15] MEDS: *HR* LORazepam Oral Conc 2 MG/ML PO PRN ×2 (05:48→11:47)
[2019-06-15 06:33] LABS: Basophils # 0.1 K/mcL (0.0-0.2); Basophils % 0.5 %; Eosinophils # 0.3 K/mcL (0.0-0.6); Eosinophils % 1.4 %; Hematocrit 34.5 % (37.5-50.1); Immature Granulocytes % 0.4 % (0-4); Mean Corpuscular HGB Conc 31.3 g/dL (31.6-35.5); Mean Corpuscular Hemoglobin 26.9 pg (28.0-33.3); Mean Platelet Volume 10.6 fL (9.4-12.4); Monocytes # 1.4 K/mcL (0.0-1.3); Monocytes % 6.9 %; Platelet Count 307 K/mcL (140-400); Red Blood Count 4.01 M/mcL (4.19-5.50); Red Cell Distribution Width 17.1 % (11.5-14.5); Segmented Neutrophils % 75.8 %; White Blood Count 19.8 K/mcL (4.3-11.1)
[2019-06-15 06:37] LABS: Hemoglobin 10.8 g/dL (12.9-16.9)
[2019-06-15 06:50] LABS: BUN/Creatinine Ratio 12 (6-26); Blood Urea Nitrogen 7 mg/dL (8-23); Calcium 8.1 mg/dL (8.6-10.3); Carbon Dioxide 26 mEq/L (23-29); Chloride 104 mEq/L (98-107); Glucose 181 mg/dL (70-105); Osmolality,Calculated 285 (280-300); Sodium 136 mEq/L (136-145); eGFR For African Americans > 60 (> 60); eGFR For Non-African Americans > 60 (> 60)
[2019-06-15] MEDS: Piperacillin/Tazobactam 3.375 GM in 0.9 % Sodium Chloride Mini Bag 100 ML IVPB SCH ×2 (08:55→17:47)
[2019-06-15] MEDS ORDERED: *HR* Dextrose 50 % in Water (Syg) 50 ML SYRINGE IVP PRN (21:52)
[2019-06-15] MEDS ORDERED: Dextrose Gel 15 GM/37.5 ML TUBE PO PRN ×2 (21:52)
[2019-06-15] MEDS ORDERED: D5% in Water 1,000 ML IVC PRN (21:52)
[2019-06-15] MEDS ORDERED: 0.9 % Sodium Chloride 1,000 ML IVC SCH (22:00)
[2019-06-16] MEDS: Piperacillin/Tazobactam 3.375 GM in 0.9 % Sodium Chloride Mini Bag 100 ML IVPB SCH ×4 (00:08→23:50)
[2019-06-16] MEDS: *HR* Heparin 5,000 UNIT/ML VIAL SQ SCH ×3 (05:04→21:33)
[2019-06-16 06:09] LABS: Hematocrit 33.8 % (37.5-50.1); Hemoglobin 10.6 g/dL (12.9-16.9); Mean Corpuscular HGB Conc 31.4 g/dL (31.6-35.5); Mean Platelet Volume 10.7 fL (9.4-12.4); Platelet Count 300 K/mcL (140-400); Red Blood Count 3.93 M/mcL (4.19-5.50); Red Cell Distribution Width 17.1 % (11.5-14.5); White Blood Count 11.8 K/mcL (4.3-11.1)
[2019-06-16 06:23] LABS: BUN/Creatinine Ratio 11 (6-26); Blood Urea Nitrogen 6 mg/dL (8-23); Calcium 8.3 mg/dL (8.6-10.3); Carbon Dioxide 30 mEq/L (23-29); Chloride 104 mEq/L (98-107); Glucose 104 mg/dL (70-105); Osmolality,Calculated 282 (280-300); Potassium 3.1 mEq/L (3.5-5.1); Sodium 137 mEq/L (136-145); eGFR For African Americans > 60 (> 60); eGFR For Non-African Americans > 60 (> 60)
[2019-06-16] MEDS ORDERED: 0.9 % Sodium Chloride w KCl 40 MEQ/1,000 ML MLS IVC SCH (08:15)
[2019-06-16] MEDS: *HR* LORazepam Oral Conc 2 MG/ML PO PRN ×3 (08:48→21:33)
[2019-06-16] MEDS ORDERED: Ipratropium/Albuterol Neb 3 ML ONE (10:27)
[2019-06-16] MEDS: Ipratropium/Albuterol Neb 3 ML IH SCH ×3 (10:41→22:27)
[2019-06-16] MEDS: Morphine Sulfate Oral CONC 10 MG/0.5 ML ORAL.SYG PO PRN ×2 (16:55→21:33)
[2019-06-17] MEDS: *HR* LORazepam Oral Conc 2 MG/ML PO PRN ×2 (04:18→10:19)
[2019-06-17] MEDS: Morphine Sulfate Oral CONC 10 MG/0.5 ML ORAL.SYG PO PRN (04:18)
[2019-06-17] MEDS: Ipratropium/Albuterol Neb 3 ML IH SCH ×4 (04:46→23:01)
[2019-06-17] MEDS: *HR* Heparin 5,000 UNIT/ML VIAL SQ SCH ×3 (06:03→20:57)
[2019-06-17] MEDS: Piperacillin/Tazobactam 3.375 GM in 0.9 % Sodium Chloride Mini Bag 100 ML IVPB SCH ×3 (10:16→23:54)
[2019-06-18] MEDS: Ipratropium/Albuterol Neb 3 ML IH SCH ×4 (04:12→22:02)
[2019-06-18] MEDS: *HR* Heparin 5,000 UNIT/ML VIAL SQ SCH ×3 (05:39→21:56)
[2019-06-18] MEDS: Piperacillin/Tazobactam 3.375 GM in 0.9 % Sodium Chloride Mini Bag 100 ML IVPB SCH ×2 (10:13→17:52)
[2019-06-19] MEDS: Piperacillin/Tazobactam 3.375 GM in 0.9 % Sodium Chloride Mini Bag 100 ML IVPB SCH ×3 (00:17→16:39)
[2019-06-19] MEDS: Ipratropium/Albuterol Neb 3 ML IH SCH ×4 (04:16→22:11)
[2019-06-19] MEDS: *HR* Heparin 5,000 UNIT/ML VIAL SQ SCH ×3 (05:04→20:25)
[2019-06-19 08:57] LABS: Hematocrit 36.5 % (37.5-50.1); Hemoglobin 11.5 g/dL (12.9-16.9); Mean Corpuscular HGB Conc 31.5 g/dL (31.6-35.5); Mean Corpuscular Hemoglobin 26.7 pg (28.0-33.3); Mean Corpuscular Volume 84.9 fL (83.0-100.0); Mean Platelet Volume 9.6 fL (9.4-12.4); Platelet Count 361 K/mcL (140-400); White Blood Count 9.5 K/mcL (4.3-11.1)
[2019-06-19 09:17] LABS: BUN/Creatinine Ratio 8 (6-26); Blood Urea Nitrogen 4 mg/dL (8-23); Calcium 8.6 mg/dL (8.6-10.3); Carbon Dioxide 29 mEq/L (23-29); Chloride 101 mEq/L (98-107); Glucose 86 mg/dL (70-105); Osmolality,Calculated 284 (280-300); Potassium 2.7 mEq/L (3.5-5.1); Sodium 139 mEq/L (136-145); eGFR For African Americans > 60 (> 60); eGFR For Non-African Americans > 60 (> 60)
[2019-06-19] MEDS ORDERED: Potassium Chloride 40 MEQ, Lidocaine 1% 2 ML in D5% in Water 500 ML IVPB ONE (11:36)
[2019-06-19] MEDS ORDERED: 0.9 % Sodium Chloride w KCl 40 MEQ/1,000 ML MLS IVC SCH (11:45)
[2019-06-20] MEDS: Piperacillin/Tazobactam 3.375 GM in 0.9 % Sodium Chloride Mini Bag 100 ML IVPB SCH ×3 (00:45→15:49)
[2019-06-20 03:00] LABS: BUN/Creatinine Ratio 6 (6-26); Blood Urea Nitrogen 3 mg/dL (8-23); Calcium 8.6 mg/dL (8.6-10.3); Carbon Dioxide 25 mEq/L (23-29); Chloride 102 mEq/L (98-107); Glucose 94 mg/dL (70-105); Osmolality,Calculated 284 (280-300); Potassium 3.2 mEq/L (3.5-5.1); Sodium 139 mEq/L (136-145); eGFR For African Americans > 60 (> 60); eGFR For Non-African Americans > 60 (> 60)
[2019-06-20] MEDS: Ipratropium/Albuterol Neb 3 ML IH SCH ×4 (04:30→21:29)
[2019-06-20] MEDS: *HR* Heparin 5,000 UNIT/ML VIAL SQ SCH ×3 (06:59→21:58)
[2019-06-20] MEDS ORDERED: Potassium Chloride 40 MEQ, Lidocaine 1% 2 ML in D5% in Water 500 ML IVPB ONE (07:23)
[2019-06-20] MEDS: Morphine Sulfate Oral CONC 10 MG/0.5 ML ORAL.SYG PO PRN (09:37)
[2019-06-21] MEDS: Piperacillin/Tazobactam 3.375 GM in 0.9 % Sodium Chloride Mini Bag 100 ML IVPB SCH ×3 (00:38→15:30)
[2019-06-21] MEDS: Ipratropium/Albuterol Neb 3 ML IH SCH ×4 (04:12→21:49)
[2019-06-21] MEDS: *HR* Heparin 5,000 UNIT/ML VIAL SQ SCH ×3 (05:27→21:23)
[2019-06-21] MEDS: *HR* LORazepam Oral Conc 2 MG/ML PO PRN (08:56)
[2019-06-21] MEDS: 0.9 % Sodium Chloride 1,000 ML IVC SCH ×2 (08:57→21:22)
[2019-06-21] MEDS ORDERED: *HR* LORazepam 0.5 MG TABLET PO PRN (09:04)
[2019-06-21 09:57] LABS: Hematocrit 39.6 % (37.5-50.1); Hemoglobin 12.6 g/dL (12.9-16.9); Mean Corpuscular HGB Conc 31.8 g/dL (31.6-35.5); Mean Corpuscular Hemoglobin 27.1 pg (28.0-33.3); Mean Corpuscular Volume 85.2 fL (83.0-100.0); Platelet Count 388 K/mcL (140-400); Red Blood Count 4.65 M/mcL (4.19-5.50); Red Cell Distribution Width 17.1 % (11.5-14.5); White Blood Count 13.4 K/mcL (4.3-11.1)
[2019-06-21 10:18] LABS: Alanine Aminotransferase 4 Units/L (7-52); Albumin 2.8 g/dL (3.5-5.7); Albumin/Globulin Ratio 0.8 (1.1-2.2); Alkaline Phosphatase 59 Units/L (34-104); Aspartate Amino Transferase 9 Units/L (13-39); BUN/Creatinine Ratio 4 (6-26); Bilirubin,Total 0.4 mg/dL (0.3-1.0); Blood Urea Nitrogen 2 mg/dL (8-23); Calcium 8.6 mg/dL (8.6-10.3); Carbon Dioxide 27 mEq/L (23-29); Chloride 102 mEq/L (98-107); Globulin 3.4 g/dL (2.4-3.5); Glucose 116 mg/dL (70-105); Magnesium 1.6 mg/dL (1.6-2.6); Osmolality,Calculated 283 (280-300); Phosphorous 2.2 mg/dL (2.7-4.5); Potassium 3.1 mEq/L (3.5-5.1); Sodium 138 mEq/L (136-145); Total Protein 6.2 g/dL (6.4-8.9); eGFR For African Americans > 60 (> 60); eGFR For Non-African Americans > 60 (> 60)
[2019-06-21] MEDS ORDERED: *HR* LORazepam 2 MG/ML VIAL IVP PRN (23:02)
[2019-06-21] MEDS ORDERED: Acetaminophen IV 500 MG/50 ML INFUS..BTL IVPB ONE (23:03)
[2019-06-22] MEDS: Piperacillin/Tazobactam 3.375 GM in 0.9 % Sodium Chloride Mini Bag 100 ML IVPB SCH ×4 (00:16→23:02)
[2019-06-22 02:54] LABS: Hematocrit 38.3 % (37.5-50.1); Mean Corpuscular HGB Conc 31.3 g/dL (31.6-35.5); Mean Corpuscular Hemoglobin 26.3 pg (28.0-33.3); Mean Platelet Volume 10.7 fL (9.4-12.4); Platelet Count 390 K/mcL (140-400); Red Blood Count 4.56 M/mcL (4.19-5.50); Red Cell Distribution Width 17.5 % (11.5-14.5)
[2019-06-22 02:56] LABS: White Blood Count 20.2 K/mcL (4.3-11.1)
[2019-06-22 02:57] LABS: Alanine Aminotransferase 3 Units/L (7-52); Albumin 2.7 g/dL (3.5-5.7); Albumin/Globulin Ratio 0.8 (1.1-2.2); Alkaline Phosphatase 59 Units/L (34-104); Aspartate Amino Transferase 7 Units/L (13-39); BUN/Creatinine Ratio 5 (6-26); Bilirubin,Total 0.3 mg/dL (0.3-1.0); Blood Urea Nitrogen 3 mg/dL (8-23); Calcium 8.2 mg/dL (8.6-10.3); Carbon Dioxide 24 mEq/L (23-29); Chloride 103 mEq/L (98-107); Globulin 3.2 g/dL (2.4-3.5); Glucose 81 mg/dL (70-105); Magnesium 1.6 mg/dL (1.6-2.6); Osmolality,Calculated 288 (280-300); Phosphorous 2.8 mg/dL (2.7-4.5); Potassium 2.7 mEq/L (3.5-5.1); Sodium 141 mEq/L (136-145); Total Protein 5.9 g/dL (6.4-8.9); eGFR For African Americans > 60 (> 60); eGFR For Non-African Americans > 60 (> 60)
[2019-06-22] MEDS: Ipratropium/Albuterol Neb 3 ML IH SCH ×4 (04:37→21:20)
[2019-06-22] MEDS: *HR* Heparin 5,000 UNIT/ML VIAL SQ SCH ×3 (06:11→20:04)
[2019-06-22] MEDS: 0.9 % Sodium Chloride 1,000 ML IVC SCH (08:36)
[2019-06-22] MEDS: Morphine Sulfate Oral CONC 10 MG/0.5 ML ORAL.SYG PO PRN ×2 (08:36→16:01)
[2019-06-22] MEDS ORDERED: Potassium Chloride 40 MEQ, Lidocaine 1% 2 ML in D5% in Water 500 ML IVPB ONE (09:52)
[2019-06-22] MEDS: MetroNIDAZOLE 500 MG/100 ML 500 MG/100 ML BAG IVPB SCH ×2 (12:31→20:04)
[2019-06-22] MEDS ORDERED: Vancomycin Oral Soln 125 MG/2.5 ML UDC PO SCH (13:00)
[2019-06-23] MEDS: MetroNIDAZOLE 500 MG/100 ML 500 MG/100 ML BAG IVPB SCH ×3 (03:02→20:33)
[2019-06-23] MEDS: 0.9 % Sodium Chloride 1,000 ML IVC SCH (03:02)
[2019-06-23] MEDS: Ipratropium/Albuterol Neb 3 ML IH SCH ×4 (04:15→21:50)
[2019-06-23] MEDS: *HR* Heparin 5,000 UNIT/ML VIAL SQ SCH ×3 (04:55→20:34)
[2019-06-23] MEDS: Piperacillin/Tazobactam 3.375 GM in 0.9 % Sodium Chloride Mini Bag 100 ML IVPB SCH ×3 (09:20→23:06)
[2019-06-23] MEDS: D5% in 0.45% NACL 1,000 ML IVC SCH (16:38)
[2019-06-23 17:54] LABS: INR 1.2; Prothrombin Time 13.4 Seconds (9.4-12.1)
[2019-06-24] MEDS: MetroNIDAZOLE 500 MG/100 ML 500 MG/100 ML BAG IVPB SCH ×3 (03:02→20:39)
[2019-06-24] MEDS: *HR* Heparin 5,000 UNIT/ML VIAL SQ SCH ×4 (03:27→20:56)
[2019-06-24] MEDS: Ipratropium/Albuterol Neb 3 ML IH SCH ×4 (03:44→20:52)
[2019-06-24 06:16] LABS: Basophils # 0.1 K/mcL (0.0-0.2); Basophils % 0.7 %; Eosinophils # 0.7 K/mcL (0.0-0.6); Eosinophils % 5.7 %; Hematocrit 36.7 % (37.5-50.1); Hemoglobin 11.8 g/dL (12.9-16.9); Immature Granulocytes % 0.5 % (0-4); Lymphocytes # 1.6 K/mcL (0.6-4.6); Lymphocytes % 13.9 %; Mean Corpuscular HGB Conc 32.2 g/dL (31.6-35.5); Mean Corpuscular Hemoglobin 26.6 pg (28.0-33.3); Mean Corpuscular Volume 82.8 fL (83.0-100.0); Mean Platelet Volume 10.1 fL (9.4-12.4); Monocytes # 0.8 K/mcL (0.0-1.3); Monocytes % 6.8 %; Neutrophils # 8.2 K/mcL (1.6-8.9); Platelet Count 324 K/mcL (140-400); Red Blood Count 4.43 M/mcL (4.19-5.50); Segmented Neutrophils % 72.4 %; White Blood Count 11.4 K/mcL (4.3-11.1)
[2019-06-24] MEDS: D5% in 0.45% NACL 1,000 ML IVC SCH (06:16)
[2019-06-24 07:15] LABS: BUN/Creatinine Ratio 4 (6-26); Blood Urea Nitrogen 2 mg/dL (8-23); Carbon Dioxide 26 mEq/L (23-29); Chloride 100 mEq/L (98-107); Glucose 110 mg/dL (70-105); Osmolality,Calculated 285 (280-300); Potassium 2.4 mEq/L (3.5-5.1); Sodium 139 mEq/L (136-145); eGFR For African Americans > 60 (> 60); eGFR For Non-African Americans > 60 (> 60)
[2019-06-24] MEDS: Piperacillin/Tazobactam 3.375 GM in 0.9 % Sodium Chloride Mini Bag 100 ML IVPB SCH ×3 (08:52→23:53)
[2019-06-24] MEDS: Vancomycin 500 MG, Sodium Chloride IRRigation 250 ML RC SCH ×3 (12:01→20:51)
[2019-06-24 14:42] LABS: BUN/Creatinine Ratio 4 (6-26); Blood Urea Nitrogen 2 mg/dL (8-23); Calcium 7.9 mg/dL (8.6-10.3); Carbon Dioxide 26 mEq/L (23-29); Chloride 100 mEq/L (98-107); Glucose 111 mg/dL (70-105); Osmolality,Calculated 281 (280-300); Sodium 137 mEq/L (136-145); eGFR For African Americans > 60 (> 60); eGFR For Non-African Americans > 60 (> 60)
[2019-06-24 15:19] LABS: Magnesium 1.4 mg/dL (1.6-2.6); Phosphorous 1.8 mg/dL (2.7-4.5)
[2019-06-24] MEDS ORDERED: Potassium Phosphate 44 MEQ in 0.9 % Sodium Chloride 250 ML IVPB ONE (16:24)
[2019-06-24] MEDS: D5% in 0.45% NACL w KCl 20 MEQ/1,000 ML MLS IVC SCH (16:36)
[2019-06-25] MEDS: MetroNIDAZOLE 500 MG/100 ML 500 MG/100 ML BAG IVPB SCH ×3 (03:30→22:59)
[2019-06-25] MEDS: *HR* Heparin 5,000 UNIT/ML VIAL SQ SCH ×4 (03:31→23:03)
[2019-06-25] MEDS: D5% in 0.45% NACL w KCl 20 MEQ/1,000 ML MLS IVC SCH ×2 (03:31→17:26)
[2019-06-25] MEDS: Ipratropium/Albuterol Neb 3 ML IH SCH ×4 (03:36→21:56)
[2019-06-25 03:55] LABS: Basophils # 0.1 K/mcL (0.0-0.2); Basophils % 0.5 %; Eosinophils # 0.4 K/mcL (0.0-0.6); Eosinophils % 4.4 %; Hematocrit 36.5 % (37.5-50.1); Hemoglobin 11.6 g/dL (12.9-16.9); Immature Granulocytes % 0.3 % (0-4); Lymphocytes # 1.4 K/mcL (0.6-4.6); Lymphocytes % 14.1 %; Mean Corpuscular HGB Conc 31.8 g/dL (31.6-35.5); Mean Corpuscular Hemoglobin 26.2 pg (28.0-33.3); Mean Corpuscular Volume 82.4 fL (83.0-100.0); Mean Platelet Volume 10.5 fL (9.4-12.4); Monocytes # 0.7 K/mcL (0.0-1.3); Monocytes % 6.7 %; Neutrophils # 7.1 K/mcL (1.6-8.9); Platelet Count 359 K/mcL (140-400); Red Blood Count 4.43 M/mcL (4.19-5.50); Red Cell Distribution Width 17.2 % (11.5-14.5); White Blood Count 9.6 K/mcL (4.3-11.1)
[2019-06-25 04:14] LABS: BUN/Creatinine Ratio 4 (6-26); Blood Urea Nitrogen 2 mg/dL (8-23); Calcium 7.7 mg/dL (8.6-10.3); Carbon Dioxide 26 mEq/L (23-29); Chloride 102 mEq/L (98-107); Glucose 136 mg/dL (70-105); Osmolality,Calculated 282 (280-300); Potassium 2.9 mEq/L (3.5-5.1); Sodium 137 mEq/L (136-145); eGFR For African Americans > 60 (> 60); eGFR For Non-African Americans > 60 (> 60)
[2019-06-25] MEDS ORDERED: Potassium Chloride 40 MEQ, Lidocaine 1% 2 ML in 0.9 % Sodium Chloride 500 ML IVPB ONE (06:44)
[2019-06-25] MEDS: Piperacillin/Tazobactam 3.375 GM in 0.9 % Sodium Chloride Mini Bag 100 ML IVPB SCH ×2 (08:42→16:20)
[2019-06-25] MEDS: Vancomycin 500 MG, Sodium Chloride IRRigation 250 ML RC SCH ×4 (08:42→23:03)
[2019-06-25 09:12] LABS: Magnesium 1.8 mg/dL (1.6-2.6)
[2019-06-25] MEDS ORDERED: Lidocaine -MPF 2% 2 ML VIAL ONE (14:03)
[2019-06-25] MEDS ORDERED: Propofol 500 MG/50 ML INFUS..BTL ONE (14:03)
[2019-06-25] MEDS ORDERED: Simethicone 40 MG/0.6 ML MLS IR ONE (16:07)
[2019-06-26] MEDS: Piperacillin/Tazobactam 3.375 GM in 0.9 % Sodium Chloride Mini Bag 100 ML IVPB SCH ×3 (00:31→16:56)
[2019-06-26] MEDS: Ipratropium/Albuterol Neb 3 ML IH SCH ×4 (03:59→22:21)
[2019-06-26] MEDS: MetroNIDAZOLE 500 MG/100 ML 500 MG/100 ML BAG IVPB SCH ×3 (04:01→22:35)
[2019-06-26 06:31] LABS: Basophils # 0.1 K/mcL (0.0-0.2); Basophils % 0.6 %; Eosinophils # 0.5 K/mcL (0.0-0.6); Hematocrit 39.1 % (37.5-50.1); Hemoglobin 12.2 g/dL (12.9-16.9); Immature Granulocytes % 0.4 % (0-4); Lymphocytes # 1.5 K/mcL (0.6-4.6); Lymphocytes % 17.4 %; Mean Corpuscular HGB Conc 31.2 g/dL (31.6-35.5); Mean Corpuscular Hemoglobin 26.5 pg (28.0-33.3); Mean Corpuscular Volume 84.8 fL (83.0-100.0); Mean Platelet Volume 10.3 fL (9.4-12.4); Monocytes # 0.7 K/mcL (0.0-1.3); Monocytes % 8.9 %; Neutrophils # 5.5 K/mcL (1.6-8.9); Platelet Count 350 K/mcL (140-400); Red Blood Count 4.61 M/mcL (4.19-5.50); Red Cell Distribution Width 17.4 % (11.5-14.5); Segmented Neutrophils % 66.7 %; White Blood Count 8.3 K/mcL (4.3-11.1)
[2019-06-26] MEDS: *HR* Heparin 5,000 UNIT/ML VIAL SQ SCH ×3 (06:43→22:36)
[2019-06-26] MEDS: D5% in 0.45% NACL w KCl 20 MEQ/1,000 ML MLS IVC SCH ×2 (06:59→22:37)
[2019-06-26 07:15] LABS: Blood Urea Nitrogen < 2 mg/dL (8-23); Calcium 7.9 mg/dL (8.6-10.3); Carbon Dioxide 28 mEq/L (23-29); Chloride 103 mEq/L (98-107); Glucose 139 mg/dL (70-105); Magnesium 1.8 mg/dL (1.6-2.6); Phosphorous 1.9 mg/dL (2.7-4.5); Potassium 2.9 mEq/L (3.5-5.1); Sodium 139 mEq/L (136-145); eGFR For African Americans > 60 (> 60); eGFR For Non-African Americans > 60 (> 60)
[2019-06-26] MEDS: D5% in 0.45% NACL 1,000 ML IVC SCH (07:20)
[2019-06-26] MEDS ORDERED: Potassium Chloride 40 MEQ, Lidocaine 1% 2 ML in 0.9 % Sodium Chloride 500 ML IVPB ONE (07:55)
[2019-06-26] MEDS ORDERED: Potassium Phosphate 44 MEQ in 0.9 % Sodium Chloride 250 ML IVPB ONE (07:57)
[2019-06-26] MEDS: Vancomycin 500 MG, Sodium Chloride IRRigation 250 ML RC SCH (08:33)
[2019-06-26] MEDS: Vancomycin Oral Soln 125 MG/2.5 ML UDC GTUBE SCH ×3 (12:44→22:34)
[2019-06-27] MEDS: Piperacillin/Tazobactam 3.375 GM in 0.9 % Sodium Chloride Mini Bag 100 ML IVPB SCH ×3 (00:10→16:02)
[2019-06-27] MEDS: Ipratropium/Albuterol Neb 3 ML IH SCH ×4 (04:22→22:54)
[2019-06-27 05:17] LABS: Basophils # 0.1 K/mcL (0.0-0.2); Basophils % 0.8 %; Eosinophils # 0.6 K/mcL (0.0-0.6); Eosinophils % 7.7 %; Hematocrit 37.9 % (37.5-50.1); Hemoglobin 11.9 g/dL (12.9-16.9); Immature Granulocytes % 0.4 % (0-4); Lymphocytes # 1.8 K/mcL (0.6-4.6); Lymphocytes % 22.7 %; Mean Corpuscular HGB Conc 31.4 g/dL (31.6-35.5); Mean Corpuscular Hemoglobin 26.7 pg (28.0-33.3); Mean Corpuscular Volume 85.2 fL (83.0-100.0); Mean Platelet Volume 10.3 fL (9.4-12.4); Monocytes # 0.7 K/mcL (0.0-1.3); Monocytes % 9.3 %; Neutrophils # 4.6 K/mcL (1.6-8.9); Platelet Count 304 K/mcL (140-400); Red Blood Count 4.45 M/mcL (4.19-5.50); Red Cell Distribution Width 17.6 % (11.5-14.5); Segmented Neutrophils % 59.1 %; White Blood Count 7.8 K/mcL (4.3-11.1)
[2019-06-27] MEDS: MetroNIDAZOLE 500 MG/100 ML 500 MG/100 ML BAG IVPB SCH ×2 (05:32→12:14)
[2019-06-27] MEDS: *HR* Heparin 5,000 UNIT/ML VIAL SQ SCH ×3 (05:32→21:35)
[2019-06-27 05:35] LABS: BUN/Creatinine Ratio 4 (6-26); Blood Urea Nitrogen 2 mg/dL (8-23); Calcium 7.9 mg/dL (8.6-10.3); Carbon Dioxide 26 mEq/L (23-29); Chloride 106 mEq/L (98-107); Glucose 161 mg/dL (70-105); Magnesium 1.9 mg/dL (1.6-2.6); Osmolality,Calculated 284 (280-300); Phosphorous 2.6 mg/dL (2.7-4.5); Potassium 3.4 mEq/L (3.5-5.1); Sodium 137 mEq/L (136-145); eGFR For African Americans > 60 (> 60); eGFR For Non-African Americans > 60 (> 60)
[2019-06-27] MEDS ORDERED: Potassium Chloride 20 MEQ, Lidocaine 1% 2 ML in 0.9 % Sodium Chloride 250 ML IVPB ONE (06:48)
[2019-06-27] MEDS ORDERED: Potassium Phosphate 44 MEQ in 0.9 % Sodium Chloride 250 ML IVPB ONE (06:49)
[2019-06-27] MEDS ORDERED: Potassium Chloride Elixir 20 MEQ/15 ML UDC GTUBE ONE (07:32)
[2019-06-27] MEDS: D5% in 0.45% NACL w KCl 20 MEQ/1,000 ML MLS IVC SCH ×2 (07:56→21:36)
[2019-06-27] MEDS: Vancomycin Oral Soln 125 MG/2.5 ML UDC GTUBE SCH ×4 (08:03→21:36)
[2019-06-28] MEDS: Piperacillin/Tazobactam 3.375 GM in 0.9 % Sodium Chloride Mini Bag 100 ML IVPB SCH ×4 (00:21→23:58)
[2019-06-28] MEDS: Ipratropium/Albuterol Neb 3 ML IH SCH ×4 (04:16→22:25)
[2019-06-28] MEDS: *HR* Heparin 5,000 UNIT/ML VIAL SQ SCH ×3 (06:30→20:53)
[2019-06-28 07:13] LABS: BUN/Creatinine Ratio 8 (6-26); Blood Urea Nitrogen 4 mg/dL (8-23); Calcium 7.7 mg/dL (8.6-10.3); Carbon Dioxide 21 mEq/L (23-29); Chloride 104 mEq/L (98-107); Glucose 187 mg/dL (70-105); Magnesium 1.8 mg/dL (1.6-2.6); Osmolality,Calculated 284 (280-300); Potassium 3.9 mEq/L (3.5-5.1); Sodium 136 mEq/L (136-145); eGFR For African Americans > 60 (> 60); eGFR For Non-African Americans > 60 (> 60)
[2019-06-28 07:23] LABS: Basophils # 0.1 K/mcL (0.0-0.2); Basophils % 0.7 %; Eosinophils # 0.5 K/mcL (0.0-0.6); Eosinophils % 6.4 %; Hematocrit 38.8 % (37.5-50.1); Immature Granulocytes % 0.5 % (0-4); Lymphocytes # 1.5 K/mcL (0.6-4.6); Lymphocytes % 18.7 %; Mean Corpuscular HGB Conc 30.9 g/dL (31.6-35.5); Mean Corpuscular Hemoglobin 27.2 pg (28.0-33.3); Mean Platelet Volume 10.2 fL (9.4-12.4); Monocytes # 0.8 K/mcL (0.0-1.3); Monocytes % 10.4 %; Neutrophils # 5.1 K/mcL (1.6-8.9); Platelet Count 297 K/mcL (140-400); Red Blood Count 4.41 M/mcL (4.19-5.50); Red Cell Distribution Width 18.1 % (11.5-14.5); Segmented Neutrophils % 63.3 %; White Blood Count 8.1 K/mcL (4.3-11.1)
[2019-06-28] MEDS: Vancomycin Oral Soln 125 MG/2.5 ML UDC GTUBE SCH ×4 (09:33→20:53)
[2019-06-28] MEDS: D5% in 0.45% NACL w KCl 20 MEQ/1,000 ML MLS IVC SCH (11:46)
[2019-06-29] MEDS: D5% in 0.45% NACL w KCl 20 MEQ/1,000 ML MLS IVC SCH ×2 (03:44→16:16)
[2019-06-29] MEDS: Ipratropium/Albuterol Neb 3 ML IH SCH ×4 (04:45→21:38)
[2019-06-29] MEDS: *HR* Heparin 5,000 UNIT/ML VIAL SQ SCH ×3 (04:53→22:43)
[2019-06-29 06:58] LABS: Basophils # 0.1 K/mcL (0.0-0.2); Basophils % 0.9 %; Eosinophils # 0.6 K/mcL (0.0-0.6); Eosinophils % 6.1 %; Hematocrit 38.3 % (37.5-50.1); Hemoglobin 12.1 g/dL (12.9-16.9); Immature Granulocytes % 0.4 % (0-4); Lymphocytes # 2.1 K/mcL (0.6-4.6); Mean Corpuscular HGB Conc 31.6 g/dL (31.6-35.5); Mean Corpuscular Hemoglobin 26.9 pg (28.0-33.3); Mean Corpuscular Volume 85.3 fL (83.0-100.0); Monocytes # 0.9 K/mcL (0.0-1.3); Neutrophils # 5.7 K/mcL (1.6-8.9); Platelet Count 378 K/mcL (140-400); Red Blood Count 4.49 M/mcL (4.19-5.50); Red Cell Distribution Width 18.6 % (11.5-14.5); Segmented Neutrophils % 60.6 %; White Blood Count 9.4 K/mcL (4.3-11.1)
[2019-06-29 07:17] LABS: BUN/Creatinine Ratio 9 (6-26); Blood Urea Nitrogen 5 mg/dL (8-23); Calcium 8.3 mg/dL (8.6-10.3); Carbon Dioxide 29 mEq/L (23-29); Chloride 102 mEq/L (98-107); Glucose 136 mg/dL (70-105); Magnesium 1.8 mg/dL (1.6-2.6); Osmolality,Calculated 285 (280-300); Phosphorous 2.8 mg/dL (2.7-4.5); Potassium 3.8 mEq/L (3.5-5.1); Sodium 138 mEq/L (136-145); eGFR For African Americans > 60 (> 60); eGFR For Non-African Americans > 60 (> 60)
[2019-06-29] MEDS: Vancomycin Oral Soln 125 MG/2.5 ML UDC GTUBE SCH ×4 (08:41→20:05)
[2019-06-29] MEDS: Piperacillin/Tazobactam 3.375 GM in 0.9 % Sodium Chloride Mini Bag 100 ML IVPB SCH ×2 (08:41→16:17)
[2019-06-30] MEDS: Piperacillin/Tazobactam 3.375 GM in 0.9 % Sodium Chloride Mini Bag 100 ML IVPB SCH ×2 (00:48→10:14)
[2019-06-30] MEDS: Ipratropium/Albuterol Neb 3 ML IH SCH ×3 (03:44→16:05)
[2019-06-30 05:04] LABS: Basophils # 0.1 K/mcL (0.0-0.2); Basophils % 0.8 %; Eosinophils # 0.6 K/mcL (0.0-0.6); Eosinophils % 5.3 %; Hematocrit 36.1 % (37.5-50.1); Hemoglobin 11.4 g/dL (12.9-16.9); Immature Granulocytes % 0.6 % (0-4); Lymphocytes # 1.8 K/mcL (0.6-4.6); Lymphocytes % 17.1 %; Mean Corpuscular HGB Conc 31.6 g/dL (31.6-35.5); Mean Corpuscular Hemoglobin 26.6 pg (28.0-33.3); Mean Corpuscular Volume 84.3 fL (83.0-100.0); Mean Platelet Volume 10.2 fL (9.4-12.4); Monocytes # 1.1 K/mcL (0.0-1.3); Monocytes % 10.1 %; Platelet Count 381 K/mcL (140-400); Red Blood Count 4.28 M/mcL (4.19-5.50); Red Cell Distribution Width 18.6 % (11.5-14.5); Segmented Neutrophils % 66.1 %; White Blood Count 10.6 K/mcL (4.3-11.1)
[2019-06-30 05:24] LABS: BUN/Creatinine Ratio 12 (6-26); Blood Urea Nitrogen 6 mg/dL (8-23); Calcium 7.6 mg/dL (8.6-10.3); Carbon Dioxide 24 mEq/L (23-29); Chloride 105 mEq/L (98-107); Glucose 161 mg/dL (70-105); Magnesium 1.7 mg/dL (1.6-2.6); Osmolality,Calculated 297 (280-300); Phosphorous 2.3 mg/dL (2.7-4.5); Potassium 3.7 mEq/L (3.5-5.1); Sodium 143 mEq/L (136-145); eGFR For African Americans > 60 (> 60); eGFR For Non-African Americans > 60 (> 60)
[2019-06-30] MEDS: D5% in 0.45% NACL w KCl 20 MEQ/1,000 ML MLS IVC SCH (05:58)
[2019-06-30] MEDS: *HR* Heparin 5,000 UNIT/ML VIAL SQ SCH ×2 (05:59→13:57)
[2019-06-30] MEDS: Vancomycin Oral Soln 125 MG/2.5 ML UDC GTUBE SCH ×2 (10:14→13:57)
[2019-06-30 14:17] VITALS: BP 110/58
== END 2019-06-30 17:39 | disposition hospice, home (50) | DRG 871 ==
LOC: EMEROOARM 16:54 → 2ANU 16:54 → SUATTDRO 21:27 → 2ANU 21:47 → SUATTDRO 06-17 13:46
PROVIDERS: ADMIT Internal Medicine; ATTEND Internal Medicine